=== PATIENT | female | born 1945 | race Caucasian/White ===

== ENCOUNTER 2018-04-10 16:26 | Inpatient (IN) | payer MEDICARE, OTHER ==
[2018-04-10] MEDS ORDERED: MORPHINE SULFATE 4 MG/ML SYRINGE IV STA (16:53)
[2018-04-10] MEDS ORDERED: SODIUM CHLORIDE 0.9% 1,000 ML IV STA (16:53)
[2018-04-10] MEDS ORDERED: ONDANSETRON 4 MG/2 ML VIAL IVP STA (16:53)
--- NOTE | 2018-04-10 17:37 | ED ---
General Adult HPI <Leroy Ferguson - Last Filed: 04/10/18 20:07> - General Source: patient, RN notes reviewed Mode of arrival: ambulatory Limitations: no limitations <Nick Morales - Last Filed: 04/10/18 20:19> - General Chief complaint: Abdominal Pain Stated complaint: Constipation Time Seen by Provider: 04/10/18 16:53 - History of Present Illness Initial comments: 72-year-old female with a past medical history of section presents to the emergency department for a chief complaint of generalized abdominal pain. Patient states she has had pain for months. She states that she has been unable to have a bowel movement for the past 2 months. Patient states she has also been nauseous and vomiting multiple times per day for the past week. She also states her abdomen feels distended. Patient has no other complaints at this time including shortness of breath, chest pain, headache, or visual changes. (Nick Morales) - Related Data Home Medications Medication Instructions Recorded Confirmed Alendronate Sodium [Fosamax] 70 mg PO Q7D 04/10/18 04/10/18 Oxybutynin Chloride [Ditropan XL] 10 mg PO DAILY 04/10/18 04/10/18 Allergies Allergy/AdvReac Type Severity Reaction Status Date / Time No Known Allergies Allergy Verified 04/10/18 16:55 Review of Systems ROS Other: All systems not noted in ROS Statement are negative. <Leroy Ferguson - Last Filed: 04/10/18 20:07> ROS Other: All systems not noted in ROS Statement are negative. <iNck Morales - Last Filed: 04/10/18 20:19> ROS Statement: Those systems with pertinent positive or pertinent negative responses have been documented in the HPI. Past Medical History Past Medical History: No Reported History History of Any Multi-Drug Resistant Organisms: None Reported Past Surgical History: Section Additional Past Surgical History / Comment(s): Cataracts Past Anesthesia/Blood Transfusion Reactions: No Reported Reaction Past Psychological History: No Psychological Hx Reported Smoking Status: Current every day smoker Past Alcohol Use History: Rare Past Drug Use History: None Reported - Past Family History Mother Family Medical History: No Reported History <Nick Morales - Last Filed: 04/10/18 20:19> General Exam Limitations: no limitations General appearance: alert, in no apparent distress Head exam: Present: atraumatic, normocephalic, normal inspection Eye exam: Present: normal appearance, PERRL, EOMI. Absent: scleral icterus, conjunctival injection, periorbital swelling ENT exam: Present: normal exam, mucous membranes moist Neck exam: Present: normal inspection, full ROM. Absent: tenderness, meningismus, lymphadenopathy Respiratory exam: Present: normal lung sounds bilaterally. Absent: respiratory distress, wheezes, rales, rhonchi, stridor Cardiovascular Exam: Present: regular rate, normal rhythm, normal heart sounds. Absent: systolic murmur, diastolic murmur, rubs, gallop, clicks GI/Abdominal exam: Present: soft, tenderness (Generalized tenderness noted of the abdomen), normal bowel sounds, hyperactive bowel sounds (Hyperactive tympanic bowel sounds noted), other (Abdomen does appear mildly distended). Absent: distended, guarding, rebound, rigid Rectal exam: Present: normal inspection. Absent: fecal impaction Neurological exam: Present: alert, oriented X3, CN II-XII intact Psychiatric exam: Present: normal affect, normal mood <Nick Morales P - Last Filed: 04/10/18 20:19> Vital Signs 04/10/18 04/10/18 16:42 20:09 Temperature 98.4 F Pulse Rate 116 H 110 H Respiratory 18 16 Rate Blood Pressure 103/73 127/96 O2 Sat by Pulse 95 96 Oximetry EKG Findings - EKG Comments: EKG Findings:: EKG shows a normal sinus rhythm, ventricular rate 99, QRS duration 82, QTC 441 <Nick Morales - Last Filed: 04/10/18 20:19> Medical Decision Making - Lab Data Result diagrams: 04/10/18 17:50 04/10/18 17:50 <Leroy Ferguson - Last Filed: 04/10/18 20:07> - Lab Data Result diagrams: 04/10/18 17:50 04/10/18 17:50 <Nick Morales - Last Filed: 04/10/18 20:19> - Medical Decision Making Patient reevaluated by myself, Dr. Ferguson. Abdomen mildly distended with mild diffuse tenderness. Patient updated on results and plan. CT report reviewed. Case was discussed in detail with Dr. Malagon who will admit for hospital call. He does recommend IV antibiotics and nothing by mouth after midnight. Patient does not meet sepsis criteria. (Leroy Ferguson) 72-year-old female with abdominal pain presents to the emergency department. Patient states she has not had a bowel movement for months. Patient states she has been nauseous and vomiting multiple times a day for the past week. On exam patient has a mildly distended abdomen with tympanic hyperactive bowel sounds. CT was ordered to rule out obstruction. CBC and CMP unremarkable. Sodium is 135 and patient was given normal saline. Glucose 135. Plasma lactic acid 2.2, patient does not meet sepsis criteria. Abdomen and pelvis CT shows high-grade mechanical bowel obstruction at the level of the lower descending colon with evidence of constricting mass. This is consistent with a adenicarcinoma of the colon. There is no pneumatosis of the cecum and markedly dilated cecum but no other signs of ischemia. Lactate 2.2. When speaking with Dr. Smith he thought this was likely secondary to cancer. Although patient's nausea initially resolved on reevaluation patient is vomiting. Dr. Ferguson spoke with Dr. Malagon who will admit the patient with IV antibiotics, NG tube, and UniSyn after midnight. (Nick Morales) - Lab Data Lab Results 04/10/18 04/10/18 04/10/18 Range/Units 17:50 17:50 17:50 WBC 9.5 (3.8-10.6) k/uL RBC 5.83 H (3.80-5.40) m/uL Hgb 15.9 (11.4-16.0) gm/dL Hct 51.0 H (34.0-46.0) % MCV 87.4 (80.0-100.0) fL MCH 27.3 (25.0-35.0) pg MCHC 31.2 (31.0-37.0) g/dL RDW 14.6 (11.5-15.5) % Plt Count 618 H (150-450) k/uL Neutrophils % 80 % Lymphocytes % 13 % Monocytes % 6 % Eosinophils % 1 % Basophils % 0 % Neutrophils # 7.5 (1.3-7.7) k/uL Lymphocytes # 1.2 (1.0-4.8) k/uL Monocytes # 0.6 (0-1.0) k/uL Eosinophils # 0.1 (0-0.7) k/uL Basophils # 0.0 (0-0.2) k/uL Sodium 135 L (137-145) mmol/L Potassium 4.7 (3.5-5.1) mmol/L Chloride 98 (98-107) mmol/L Carbon Dioxide 28 (22-30) mmol/L Anion Gap 9 mmol/L BUN 17 (7-17) mg/dL Creatinine 0.84 (0.52-1.04) mg/dL Est GFR (CKD-EPI)AfAm 81 (>60 ml/min/1.73 sqM) Est GFR (CKD-EPI)NonAf 71 (>60 ml/min/1.73 sqM) Glucose 135 H (74-99) mg/dL Plasma Lactic Acid Marko 2.2 H* (0.7-2.0) mmol/L Calcium 9.9 (8.4-10.2) mg/dL Total Bilirubin 0.5 (0.2-1.3) mg/dL AST 18 (14-36) U/L ALT 20 (9-52) U/L Alkaline Phosphatase 97 (38-126) U/L Total Protein 6.8 (6.3-8.2) g/dL Albumin 3.8 (3.5-5.0) g/dL Amylase 36 (30-110) U/L Lipase 52 (23-300) U/L Disposition <Leroy Ferguson - Last Filed: 04/10/18 20:07> Is patient prescribed a controlled substance at d/c from ED?: No Time of Disposition: 20:16 <Nick Morales - Last Filed: 04/10/18 20:19> Clinical Impression: Bowel obstruction, Mass of colon Disposition: ADMITTED IP TO THIS HOSP Condition: Fair Referrals: Lulú Gilletet MD [Primary Care Provider] - 1-2 days
[2018-04-10 18:12] LABS: Albumin 3.8 g/dL (3.5-5.0); Calcium 9.9 mg/dL (8.4-10.2); Potassium 4.7 mmol/L (3.5-5.1); Total Bilirubin 0.5 mg/dL (0.2-1.3); Total Protein 6.8 g/dL (6.3-8.2)
[2018-04-10 18:18] LABS: Basophils % (A) 0 %; Eosinophils # (A) 0.1 k/uL (0-0.7); Eosinophils % (A) 1 %; HGB 15.9 gm/dL (11.4-16.0); Lymphocytes # (A) 1.2 k/uL (1.0-4.8); Lymphocytes % (A) 13 %; MCH 27.3 pg (25.0-35.0); MCHC 31.2 g/dL (31.0-37.0); MCV 87.4 fL (80.0-100.0); Mean Platelet Volume 7.9; Monocytes # (A) 0.6 k/uL (0-1.0); Monocytes % (A) 6 %; Neutrophils # (A) 7.5 k/uL (1.3-7.7); Neutrophils % (A) 80 %; Platelet Count 618 k/uL (150-450); RBC 5.83 m/uL (3.80-5.40); RDW 14.6 % (11.5-15.5); WBC 9.5 k/uL (3.8-10.6)
--- NOTE | 2018-04-10 19:40 | CT ---
EXAMINATION TYPE: CT abdomen pelvis w con DATE OF EXAM: 04/10/2018 COMPARISON: None HISTORY: abdominal pain, constipation CT DLP: 650.3 mGycm Automated exposure control for dose reduction was used. TECHNIQUE: Helical acquisition of images was performed from the lung bases through the pelvis. CONTRAST: Performed without Oral Contrast and with IV Contrast, patient injected with 100 mL of Isovue 300. FINDINGS: There is some patchy subsegmental atelectasis at the lung bases. There is hiatal hernia. Gallbladder appears normal. Liver shows no focal defect. There is no pericardial effusion. There is no pleural ef fusion. There are small calcified splenic granulomata. There is no evidence of a pancreatic mass. There is no adrenal mass. Kidneys show satisfactory contrast opacification. There is no hydronephrosis. Ureters are not dilated . There is dilated cecum with air in the wall. Cecum measures 9.5 cm. There is not a significant thic kening of the cecal wall. I do not see hypodensity in the wall to suggest ischemia. There is multiple distended air and fluid-filled loops of small bowel. There is large bowel distention also with fluid . There appears to be Apple core type lesion in the lower descending colon which is transition point. This measures 7 x 3 cm. There is small amount of fluid in the right paracolic gutter. Appendix is not seen. I see no mesenter ic edema. Small bowel is dilated up to 3.2 cm. There is mild lumbar levoscoliosis. There is no compression fracture. There is spondylotic change and narrowing of the L4-5 disc space. I see no focal bone destruction. IMPRESSION: THERE IS HIGH-GRADE MECHANICAL BOWEL OBSTRUCTION AT THE LEVEL OF THE LOWER DESCENDING COLON WITH EVID ENCE OF CONSTRICTING MASS. THIS IS CONSISTENT WITH ADENOCARCINOMA OF THE COLON. THERE IS PNEUMATOSIS OF THE CECUM AND MARKEDLY DILATED CECUM BUT NO OTHER SIGN OF ISCHEMIA. Ischemia not entirely excluded . Patchy atelectasis at the lung bases. Healed granulomatous disease. Hiatal hernia.
[2018-04-10] MEDS ORDERED: NALOXONE 0.4 MG/ML 1 ML VIAL IV PRN (20:17)
[2018-04-10 21:07] LABS: Appearance,Urine Clear (Clear); Bilirubin,Urine Negative (Negative); Blood,Urine Negative (Negative); Color,Urine Yellow; Glucose,Urine (UA) Negative (Negative); Ketones,Urine Negative (Negative); Leukocyte Esterase,Urine Negative (Negative); Nitrite,Urine Negative (Negative); Protein,Urine Trace (Negative); Urobilinogen,Urine <2.0 mg/dL (<2.0)
[2018-04-10 21:10] LABS: Specific Gravity,Urine >1.050 (1.001-1.035)
--- NOTE | 2018-04-10 21:18 | XR ---
EXAMINATION TYPE: XR chest 1V portable DATE OF EXAM: 04/10/2018 COMPARISON: 05/25/2014 HISTORY: Chest pain cough TECHNIQUE: Single frontal view of the chest is obtained. FINDINGS: Heart is enlarged. There are calcified granulomata at the pulmonary van. There is coarsen ing of the lung markings. There is no gross heart failure. There is mild infiltrate at the right lung base. Bony thorax is intact. IMPRESSION: Old granulomatous disease. Mild infiltrate right lung base compared to old exam. Heart is increased in size compared to old exam .
[2018-04-10] MEDS: AMPICILLIN-SULBACTAM 3 GM in SODIUM CHLORIDE 0.9% 100 ML IVPB SCH (23:28)
[2018-04-10] MEDS: SODIUM CHLORIDE 0.9% 1,000 ML IV SCH (23:28)
[2018-04-10] MEDS ORDERED: IPRATROPIUM-ALBUTEROL 3 ML NEB INHALATION PRN (23:28)
[2018-04-11] MEDS: MORPHINE SULFATE 4 MG/ML SYRINGE IV PRN ×2 (01:55→09:34)
--- NOTE | 2018-04-11 02:28 | XR ---
EXAMINATION TYPE: XR chest 1V portable DATE OF EXAM: 04/11/2018 COMPARISON: Yesterday HISTORY: Check tube placement TECHNIQUE: Single frontal view of the chest is obtained. FINDINGS: There is a nasogastric tube with the tip probably in the gastric fundus. There is coarseni ng of the lung markings. Thoracic aorta is atheromatous. There is probably some infiltrate in the med ial right lung base. There are calcified granulomata at the pulmonary van. Bony thorax is intact. IMPRESSION: Right lower lobe infiltrate unchanged. NG tube in good position.
[2018-04-11] MEDS: AMPICILLIN-SULBACTAM 3 GM in SODIUM CHLORIDE 0.9% 100 ML IVPB SCH ×4 (03:29→16:42)
[2018-04-11] MEDS: IPRATROPIUM-ALBUTEROL 3 ML NEB INHALATION SCH ×3 (08:50→19:52)
[2018-04-11] MEDS: OXYBUTYNIN 10 MG TAB.ER.24 PO SCH (08:52)
[2018-04-11] MEDS: NICOTINE 14MG/24HR PATCH TRANSDERM SCH (08:57)
[2018-04-11] MEDS: PANTOPRAZOLE 40 MG/10 ML VIAL IVP SCH (08:57)
[2018-04-11] MEDS: HEPARIN SODIUM,PORCINE 5,000 UNIT/ML 1 ML VIAL SQ SCH ×2 (08:58→22:12)
[2018-04-11 10:13] LABS: Basophils % (A) 0 %; Eosinophils # (A) 0.3 k/uL (0-0.7); Eosinophils % (A) 2 %; HCT 42.5 % (34.0-46.0); HGB 13.2 gm/dL (11.4-16.0); Hypochromasia Slight; Lymphocytes # (A) 1.7 k/uL (1.0-4.8); Lymphocytes % (A) 14 %; MCH 27.9 pg (25.0-35.0); MCHC 30.9 g/dL (31.0-37.0); MCV 90.1 fL (80.0-100.0); Mean Platelet Volume 7.4; Monocytes # (A) 0.9 k/uL (0-1.0); Monocytes % (A) 8 %; Neutrophils # (A) 9.3 k/uL (1.3-7.7); Neutrophils % (A) 75 %; Platelet Count 615 k/uL (150-450); RBC 4.72 m/uL (3.80-5.40); RDW 14.7 % (11.5-15.5); WBC 12.4 k/uL (3.8-10.6)
--- NOTE | 2018-04-11 10:15 | CONS ---
CONSULTATION REASON FOR CONSULTATION: Advice regarding bowel obstruction and CA colon and other multiple medical issues requested by Dr. Malagon. HISTORY OF PRESENT ILLNESS: This is a 72-year-old woman with a past medical history of multiple medical problems including single polyp, history of nicotine dependence, being followed by Dr. Gillette in the outpatient setting, is complaining of constipation. The patient has several days of constipation. The patient also had abdomen distention, abdominal cramping in the lower part of the abdomen, especially in the right lower part. A CT scan in the emergency room showed high-grade mechanical bowel pressures the level of the lower descending colon with evidence of consider mass consistent with adenocarcinoma of the colon. The patient admitted for further evaluation and treatment. There is no history of fever, chills, or rigors. No history of headache, loss of consciousness, or seizures. PAST MEDICAL HISTORY: History of colonoscopy, history of , cataracts. MEDICATIONS: Prior to admission include oxybutynin, Ditropan XL 10 mg daily, Fosamax 70 mg q.7 days. ALLERGIES: None. FAMILY HISTORY: No history of heart disease or strokes in the family. SOCIAL HISTORY: History of smoking. Occasional alcohol intake. REVIEW OF SYSTEMS: ENT: Diminished hearing, diminished vision. CARDIOVASCULAR: No angina, palpitations. RESPIRATION: No cough or hemoptysis. GI: As mentioned earlier. : No dysuria. NERVOUS SYSTEM: No numbness or weakness. ALLERGY/IMMUNOLOGY: None. MUSCULOSKELETAL: As mentioned earlier. HEMATOLOGY: As mentioned earlier. DERMATOLOGY: As mentioned earlier. ENDOCRINE: No history of diabetes or hypothyroidism. CONSTITUTIONAL: As mentioned earlier. DERMATOLOGY: Negative. RHEUMATOLOGY: Negative. PSYCHIATRY: As mentioned earlier. PHYSICAL EXAMINATION: Alert and oriented x3. Pulse is 116, blood pressure 103/73, respiration 18, temperature 98.4, pulse ox 94% on room air. HEENT: Conjunctivae normal. Oral mucosa moist. Neck is no jugular venous distention. No lymph node enlargement. CARDIOVASCULAR SYSTEM: S1, S2, muffled. RESPIRATION: Breath sounds diminished at the bases. No rhonchi. No crackles. ABDOMEN: Soft. Mild diffuse distention. Nontender. No guarding. No rigidity. No mass palpable. LEGS: No edema, no swelling. NERVOUS SYSTEM: Higher functions as mentioned earlier. Moves all 4 limbs. No focal motor deficits. LYMPHATICS: No lymph node enlargement in the neck or axillae. SKIN: No ulcer, rash or bleeding. LABS: WBC is 9.4, hemoglobin is 15.9, platelets 600, sodium 135, plasma lactic acid is 2.2. ASSESSMENT: 1. Acute bowel obstruction, possibly secondary to malignancy at cecal level large bowel obstruction. 2. Possible carcinoma of the colon. 3. Hyponatremia. 4. Increased platelets. 5. Hard of hearing. 6. History of nicotine dependence. 7. Possible chronic obstructive pulmonary disease/bronchitis. RECOMMENDATION: In this 72-year-old woman who presented with multiple complex medical issues, will monitor the patient closely, continue with the current management. Recommend DVT prophylaxis, incentive spirometry, proton pump inhibitors. Otherwise, the patient from the medical point of view, cardiovascular is stable. Cleared for any surgery at this time. The EKG which is available in the chart, did not show any acute changes. Chest x- ray showed a few scattered rhonchi. MMODL / IJN: [id number] /
[2018-04-11] MEDS ORDERED: IV FLUID CONTINUATION 1,000 ML IV ONE (10:17)
[2018-04-11] MEDS: ONDANSETRON 4 MG/2 ML VIAL IVP PRN (10:33)
[2018-04-11 10:49] LABS: Calcium 8.5 mg/dL (8.4-10.2); Potassium 4.9 mmol/L (3.5-5.1)
[2018-04-11] MEDS ORDERED: MIDAZOLAM 2 MG/2 ML VIAL IVP ONE (11:13)
[2018-04-11] MEDS ORDERED: fentaNYL (PF) 50 MCG/ML 2 ML AMP IVP ONE (11:14)
[2018-04-11] MEDS ORDERED: NALOXONE 0.4 MG/ML 1 ML VIAL IV PRN (11:30)
--- NOTE | 2018-04-11 11:43 | P.GSHP ---
History of Present Illness H&P Date: 04/11/18 Chief Complaint: Abdominal pain constipation cramping 72-year-old female who is very hard of hearing looking older than stated age presented to the emergency room with a chief complaint of developing abdominal pain bloating cramping with constipation persistent over the last several days symptomatic patient had a CAT scan done in the emergency room on admission it did show evidence of a high-grade mechanical bowel obstruction at the level of the lower descending colon with evidence to consider a mass consistent with adenocarcinoma was admitted to the services of the attending with a nasogastric tube placed in the emergency room abdominal bloating with abdominal pain persist Patient states that she has had abdominal pain with constipation per the past several months. States that for the past 2 months has not been able to have a bowel movement feels nauseated and had been vomiting multiple times per day for the past week abdomen at home had been feeling bloated with poor oral intake Patient had a screening colonoscopy done March 2016 reviewing the report it showed descending colon mild diverticulosis external hemorrhoids transverse colon appeared normal - Review of Systems Comment: Essentially unremarkable except as mentioned in the present illness Past Medical History Past Medical History: No Reported History History of Any Multi-Drug Resistant Organisms: None Reported Past Surgical History: Section Additional Past Surgical History / Comment(s): Cataracts Past Anesthesia/Blood Transfusion Reactions: No Reported Reaction Past Psychological History: No Psychological Hx Reported Smoking Status: Current every day smoker Past Alcohol Use History: Rare Past Drug Use History: None Reported - Past Family History Mother Family Medical History: No Reported History Medications and Allergies Home Medications Medication Instructions Recorded Confirmed Type Alendronate Sodium [Fosamax] 70 mg PO Q7D 04/10/18 04/10/18 History Oxybutynin Chloride [Ditropan XL] 10 mg PO DAILY 04/10/18 04/10/18 History Allergies Allergy/AdvReac Type Severity Reaction Status Date / Time No Known Allergies Allergy Verified 04/11/18 10:19 Surgical - Exam Vital Signs Temp Pulse Resp BP Pulse Ox 98.4 F 116 H 18 103/73 95 04/10/18 16:42 04/10/18 16:42 04/10/18 16:42 04/10/18 16:42 04/10/18 16:42 GENERAL APPEARANCE: 72 year old alert, oriented, in no acute distress. States less abdominal cramping VITAL SIGNS: Reviewed HEENT: Head is normocephalic and atraumatic. Pupils are equal and reactive. The nares are patent. Oropharynx is clear without lesions. NECK: Supple without lymphadenopathy. Traches midline. HEART: S1, S2. Regular rate and rhythm. Denying chest pain LUNGS: No crackles or wheezes are heard. Adequate air movement bilaterally ABDOMEN: Soft, generalized tenderness across the abdominal wall, abdominal bloating no stool with hyperactive tympatnic bowel sounds noted No peritoneal signs. No palpable organomegaly or masses. EXTREMITIES: Normal skin color and turgor. No cyanosis, rash, ulceration, clubbing or edema. Radial pedal pulses are 2/4 bilaterally. NEUROLOGICAL: No focal deficits. Strength and sensation are grossly intact. Results - Labs 04/11/18 08:51 04/11/18 08:51 Abnormal Lab Results - Last 24 Hours (Table) 04/10/18 04/10/18 04/10/18 Range/Units 17:50 17:50 17:50 WBC (3.8-10.6) k/uL RBC 5.83 H (3.80-5.40) m/uL Hct 51.0 H (34.0-46.0) % MCHC (31.0-37.0) g/dL Plt Count 618 H (150-450) k/uL Neutrophils # (1.3-7.7) k/uL Sodium 135 L (137-145) mmol/L Carbon Dioxide (22-30) mmol/L Glucose 135 H (74-99) mg/dL Plasma Lactic Acid Marko 2.2 H* (0.7-2.0) mmol/L Ur Specific Raymond (1.001-1.035) Urine Protein (Negative) 04/10/18 04/11/18 04/11/18 Range/Units 20:54 08:51 08:51 WBC 12.4 H (3.8-10.6) k/uL RBC (3.80-5.40) m/uL Hct (34.0-46.0) % MCHC 30.9 L (31.0-37.0) g/dL Plt Count 615 H (150-450) k/uL Neutrophils # 9.3 H (1.3-7.7) k/uL Sodium (137-145) mmol/L Carbon Dioxide 31 H (22-30) mmol/L Glucose (74-99) mg/dL Plasma Lactic Acid Marko (0.7-2.0) mmol/L Ur Specific Raymond >1.050 H (1.001-1.035) Urine Protein Trace H (Negative) Diabetes panel 04/10/18 04/11/18 Range/Units 17:50 08:51 Sodium 135 L 138 (137-145) mmol/L Potassium 4.7 4.9 (3.5-5.1) mmol/L Chloride 98 102 (98-107) mmol/L Carbon Dioxide 28 31 H (22-30) mmol/L BUN 17 16 (7-17) mg/dL Creatinine 0.84 0.78 (0.52-1.04) mg/dL Glucose 135 H 92 (74-99) mg/dL Calcium 9.9 8.5 (8.4-10.2) mg/dL AST 18 (14-36) U/L ALT 20 (9-52) U/L Alkaline Phosphatase 97 (38-126) U/L Total Protein 6.8 (6.3-8.2) g/dL Albumin 3.8 (3.5-5.0) g/dL Thyroid panel 04/11/18 Range/Units 08:51 TSH 1.630 (0.465-4.680) mIU/L Calcium panel 04/10/18 04/11/18 Range/Units 17:50 08:51 Calcium 9.9 8.5 (8.4-10.2) mg/dL Albumin 3.8 (3.5-5.0) g/dL Pituitary panel 04/10/18 04/11/18 Range/Units 17:50 08:51 Sodium 135 L 138 (137-145) mmol/L Potassium 4.7 4.9 (3.5-5.1) mmol/L Chloride 98 102 (98-107) mmol/L Carbon Dioxide 28 31 H (22-30) mmol/L BUN 17 16 (7-17) mg/dL Creatinine 0.84 0.78 (0.52-1.04) mg/dL Glucose 135 H 92 (74-99) mg/dL Calcium 9.9 8.5 (8.4-10.2) mg/dL TSH 1.630 (0.465-4.680) mIU/L Adrenal panel 04/10/18 04/11/18 Range/Units 17:50 08:51 Sodium 135 L 138 (137-145) mmol/L Potassium 4.7 4.9 (3.5-5.1) mmol/L Chloride 98 102 (98-107) mmol/L Carbon Dioxide 28 31 H (22-30) mmol/L BUN 17 16 (7-17) mg/dL Creatinine 0.84 0.78 (0.52-1.04) mg/dL Glucose 135 H 92 (74-99) mg/dL Calcium 9.9 8.5 (8.4-10.2) mg/dL Total Bilirubin 0.5 (0.2-1.3) mg/dL AST 18 (14-36) U/L ALT 20 (9-52) U/L Alkaline Phosphatase 97 (38-126) U/L Total Protein 6.8 (6.3-8.2) g/dL Albumin 3.8 (3.5-5.0) g/dL Assessment and Plan Assessment: Impression Present on admission diffuse abdominal pain with bloating inability to have a bowel movement for the past 2 months suspect due to high-grade mechanical bowel obstruction at the level of the lower descending colon with 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 Present on admission intractable nausea vomiting poor oral intake suspect due to high-grade mechanical small bowel obstruction History of a screening colonoscopy 03/13/2016 report reviewed descending colon mild diverticulosis external hemorrhoids several polyps removed Present on admission poor oral intake nausea suspect constipation from the cecum Current every day smoker Hearing deficit Plan IV fluid for hydration Continue the nasogastric tube to intermittent suction Pain control DVT and GI prophylaxis IV antibiotic Unasyn as ordered Nothing by mouth for plan surgery today diverting colostomy sigmoid colectomy per Dr. vazquez Reinforce smoking cessation information been advised to stop smoking cigarettes The above impression and plan of care have been discussed and directed by signing physician. Beth Contreras nurse practitioner acting as scribe for signing physician.
[2018-04-11] MEDS ORDERED: ROPIVACAINE 400 MG, HYDROMORPHONE (PF) 3.75 MG in SODIUM CHLORIDE 0.9% 170 ML EPIDURAL PRN (12:00)
[2018-04-11] MEDS: SODIUM CHLORIDE 0.9% 1,000 ML IV SCH ×2 (13:02→16:21)
[2018-04-11] MEDS ORDERED: LACTATED RINGERS 1,000 ML IV ONE ×2 (13:23→13:59)
[2018-04-11] MEDS ORDERED: FUROSEMIDE 10 MG/ML 2 ML VIAL IV ONE (15:24)
[2018-04-11] MEDS ORDERED: LACTATED RINGERS 1,000 ML IV SCH (16:30)
[2018-04-11] MEDS: LACTATED RINGERS 1,000 ML IV SCH (17:15)
--- NOTE | 2018-04-11 17:43 | P.OP ---
Date of Procedure: 04/11/18 Preoperative Diagnosis: Obstructing left colon mass Postoperative Diagnosis: Obstructing left colon mass suspicious for adenocarcinoma Massively dilated right colon with serosal tears Procedure(s) Performed: Left colectomy with end colostomy Takedown of splenic flexure Splenectomy Partial omentectomy Anesthesia: JEANNIE Surgeon: Augustine Malagon Estimated Blood Loss (ml): 100 Pathology: other (Left colon, spleen, omentum) Condition: stable Disposition: PACU Description of Procedure: The patient's placed on the operative table in the supine position. She received general anesthesia. Her abdomen was prepped and draped usual sterile fashion. The abdomen was entered through midline incision. Upon entering the abdomen there were extensive adhesions along her previous midline scar. Approximately 20 minutes of operative time used to lyse adhesions. 1 mL were lysed the peritoneal cavity was entered the Bookwalter retractors placed a wound. The right colon was massively dilated. The colon appeared to be about 15 cm in diameter. There were serosal tears along the cecum and right colon. At this point it was decided to decompress the colon. The right colon was grasped with an Allis clamp and then using electrocautery a small enterotomy was made into the right colon. A large amount of air was aspirated. The enterotomy was sealed by dividing this area with the TA stapler. The serosal tears the right colon were then repaired using 3-0 silk suture. The colon was run to the level of the distal left colon. There was an obstructing tumor visualized. The left colon was mobilized by dividing the white line of Toldt's. The scope blunt flexure was mobilized as well. During mobilization spot flexure there was a small amount of bleeding from the inferior pole and spleen. It was decided to perform a splenectomy for control the bleeding. The splenic hilum was clamped between Marylin clamps and then divided with the Enseal device. 0 silk sutures used to divide the and ligate the splenic artery and vein. The splenic flexure was completely mobilized by dividing the adhesions of the splenic flexure. Next the sigmoid colon was transected with the linear cutter stapler. And then the left colon was transected with linear cutter stapler. The mesentery of the colon was divided using the Enseal device. The specimen sent to pathology. There was a suture on the proximal side of the specimen. The abdomen was irrigated there is no bleeding seen. The omentum was visualized. There was a portion of omentum appeared nonviable and this was dissected using the Enseal device and sent to pathology. The abdomen was irrigated. A suitable spot for the colostomy was found in the left upper quadrant. The colon was brought up through the colostomy site and then the fascia was closed with looped #1 PDS suture. The skin was closed elke. Once the skin was closed the colon was transected with left cautery and then the colostomy was matured using 3-0 Vicryl suture. Patient tolerated procedure well and was sent to recovery in stable condition.
[2018-04-11] MEDS ORDERED: PIPERACILLIN-TAZOBACTAM 3.375 GM in SODIUM CHLORIDE 0.9% 100 ML IVPB STA (18:47)
[2018-04-11 20:38] LABS: Albumin 2.2 g/dL (3.5-5.0); Calcium 7.6 mg/dL (8.4-10.2); Potassium 4.9 mmol/L (3.5-5.1); Total Bilirubin 0.5 mg/dL (0.2-1.3); Total Protein 4.3 g/dL (6.3-8.2)
[2018-04-11 20:52] LABS: HCT 36.7 % (34.0-46.0); HGB 11.4 gm/dL (11.4-16.0); Hypochromasia Slight; MCHC 31.1 g/dL (31.0-37.0); MCV 90.1 fL (80.0-100.0); Mean Platelet Volume 7.7; Platelet Count 592 k/uL (150-450); RBC 4.08 m/uL (3.80-5.40); RDW 14.5 % (11.5-15.5); WBC 12.5 k/uL (3.8-10.6)
[2018-04-11 21:28] LABS: Band Neutrophils % 30 %; Lymphocytes # (M) 1.38 k/uL (1.0-4.8); Metamyelocytes # (M) 0.25 k/uL (0); Metamyelocytes % 2 %; Myelocytes # (M) 0.13 k/uL (0); Myelocytes % 1 %; Neutrophils % (M) 50 %; Nucleated Red Blood Cells 0 /100 WBC (0-0); Total Cells Counted 200
[2018-04-11 21:29] LABS: Polychromasia Present; Toxic Granulation Present; Toxic Vacuolation Present
--- NOTE | 2018-04-11 22:11 | PN ---
PROGRESS NOTE DATE OF SERVICE: 04/11/2018 This 72-year-old woman is admitted with bowel obstruction underwent exploratory laparotomy and surgery by Dr. Malagon. The patient underwent left colectomy with end- colostomy and take down of splenic flexure, splenectomy and partial omentectomy for obstructing left colonic mass which is suspicious for adenocarcinoma. The patient was tachycardic during the procedure. The patient is slightly drowsy after procedure. Patient is also slightly dehydrated. Patient being closely monitored. Multiple fluid boluses given. White count is 12.4. Repeat. The troponins are negative. EKG shows sinus tachycardia. PAST MEDICAL HISTORY: Reviewed. REVIEW OF SYSTEM: Could not be taken. The patient is slightly drowsy. CURRENT MEDICATIONS: Reviewed and include: 1. DuoNeb q.i.d. and p.r.n. 2. Heparin 5000 subcu b.i.d. 3. Lactated Ringer's. 4. Narcan. 5. Habitrol 14. 6. Ditropan XL. PHYSICAL EXAM: Pulse is 124, blood pressure 110/70, respiratory rate 16, temperature 99.4, pulse ox 97% on room air. HEENT: Conjunctivae normal. Oral mucosa dry. NECK is no jugular venous distention. No carotid bruit or lymph node enlargement. CARDIOVASCULAR: S1, S2. RESPIRATIONS: Breath sounds diminished in the bases. A few rhonchi. No crackles. ABDOMEN: Soft. Status post surgery. LEGS: No edema, no swelling. NERVOUS SYSTEM: Higher functions as mentioned earlier. Moves all four extremities. Lymphatics: No lymph nodes palpable in the neck, axillae or groin. SKIN: No ulcer, rash or bleeding. LAB STUDIES: WBC 12.4, platelets 615. Other labs are noted. ASSESSMENT: 1. Possible acute bowel obstruction with obstructing mass left chronic mass, status post left colectomy with end-colostomy, takedown splenic flexure, and splenectomy and partial omentectomy. 2. Tachycardia, rule out sepsis. 3. Increased WBC. 4. Increased platelets. 5. Hyponatremia. 6. Hard of hearing. 7. History of nicotine dependence. 8. Chronic obstructive pulmonary disease. 9. Bronchitis. RECOMMENDATIONS AND DISCUSSION: Recommend to continue current medications, management and symptomatic treatment. Otherwise, I recommend broad-spectrum IV antibiotics. Zosyn. Obtain cultures. Otherwise, continue the rest of medications including DVT prophylaxis and proton pump inhibitors. Closely follow with Dr. Malagon. Further recommendations to follow. See orders for details. MMODL / IJN: [id number] /
[2018-04-12] MEDS ORDERED: SODIUM CHLORIDE 0.9% 1,000 ML IV ONE ×2 (00:02→09:00)
[2018-04-12] MEDS: PIPERACILLIN-TAZOBACTAM 3.375 GM in SODIUM CHLORIDE 0.9% 100 ML IVPB SCH ×3 (02:27→22:54)
[2018-04-12] MEDS: LACTATED RINGERS 1,000 ML IV SCH ×3 (02:27→17:00)
[2018-04-12 06:08] LABS: Basophils % (A) 0 %; Eosinophils % (A) 0 %; HCT 34.6 % (34.0-46.0); HGB 10.5 gm/dL (11.4-16.0); Hypochromasia Slight; Lymphocytes # (A) 1.1 k/uL (1.0-4.8); Lymphocytes % (A) 8 %; MCH 27.3 pg (25.0-35.0); MCHC 30.4 g/dL (31.0-37.0); MCV 89.7 fL (80.0-100.0); Mean Platelet Volume 6.9; Monocytes # (A) 0.9 k/uL (0-1.0); Monocytes % (A) 7 %; Neutrophils # (A) 11.2 k/uL (1.3-7.7); Neutrophils % (A) 84 %; Platelet Count 553 k/uL (150-450); RBC 3.86 m/uL (3.80-5.40); RDW 14.6 % (11.5-15.5); WBC 13.3 k/uL (3.8-10.6)
[2018-04-12 06:24] LABS: Calcium 7.5 mg/dL (8.4-10.2)
[2018-04-12] MEDS: IPRATROPIUM-ALBUTEROL 3 ML NEB INHALATION SCH ×3 (06:56→20:08)
--- NOTE | 2018-04-12 07:06 | P.PN ---
Progress Note - Text Progress Note Date: 04/12/18 Patient is postop day #1 from Left colectomy with end colostomy, takedown of splenic flexure, Splenectomy, epidural catheter day #2. Patient is doing well VAS difficult to ascertain the between the 2-3 out of 10 in severity. Patient states she has some soreness in her abdomen but well controlled with the epidural. Patient states that she's been and waiting to the bathroom with assistance. Epidural solution consisted ropivacaine and Dilaudid running at a rate of 5 ML's an hour. No motor sensory deficits appreciated. Plan is to continue with current settings.
[2018-04-12] MEDS: OXYBUTYNIN 10 MG TAB.ER.24 PO SCH (10:40)
[2018-04-12] MEDS: NICOTINE 14MG/24HR PATCH TRANSDERM SCH (10:40)
[2018-04-12] MEDS: PANTOPRAZOLE 40 MG/10 ML VIAL IVP SCH (10:41)
[2018-04-12] MEDS: HEPARIN SODIUM,PORCINE 5,000 UNIT/ML 1 ML VIAL SQ SCH ×2 (10:42→22:54)
[2018-04-12] MEDS ORDERED: LACTATED RINGERS 1,000 ML IV ONE (12:30)
--- NOTE | 2018-04-12 12:32 | P.PN ---
Subjective Progress Note Date: 04/12/18 72-year-old female seen in the postop surgical visit. Currently has a nasal gastric tube to intermittent suction brownish secretions in the canister ostomy left lower quadrant moderate amount of liquid brown stool noted surgical dressing dry old bloody drainage noted patient is asking for " thirsty needs something to drink" white count 13.3 potassium [address] for pain control temp 99.2 April 11 left colectomy with end colostomy , takedown splenic flexure, splenectomy, partial omentectomy for obstructing left colon mass suspicious for adenocarcinoma, massively dilated right colon with serosal tears Objective - Vital Signs Vital signs: Vital Signs Temp 99.2 F 04/12/18 08:58 Pulse 113 H 04/12/18 08:58 Resp 14 04/12/18 11:42 BP 107/70 04/12/18 08:58 Pulse Ox 94 L 04/12/18 08:58 Intake & Output 04/11/18 04/12/18 04/12/18 18:59 06:59 18:59 Intake Total 2350 2612.5 Output Total 465 750 Balance 1885 1862.5 Weight 61.235 kg Intake: IV 2350 Intake, IV Titration 2612.5 Amount Lactated Ringers 1,000 ml 1562.5 @ 125 mls/hr IV .Q8H [facility] Rx#:[id number] Piperacillin-Tazobactam 3 100 .375 gm In Sodium Chloride 0.9% 100 ml @ 25 mls/hr IVPB Q8H [facility] Rx#: [id number] Sodium Chloride 0.9% 1, 950 000 ml @ 999 mls/hr IV . Q1H1M [facility] Rx#:[id number] Output: Urine 315 550 Stool 200 Estimated Blood Loss 150 Other: Voiding Method Indwelling Catheter Indwelling Catheter Indwelling Catheter - Exam Physical exam 72-year-old female sitting up in bed asking for water states thirsty Lungs adequate air movement bilaterally Heart S1-S2 audible regular Abdomen nasogastric tube to intermittent suction brownish secretions in the canister surgical tenderness appropriate not distended. Hypoactive bowel tones indwelling Noble catheter in place ostomy left lower quadrant moderate amount of liquid brown stool surgical dressing site dry Extremities Venodyne's on bilateral lower extremities no edema - Labs CBC & Chem 7: 04/12/18 05:49 04/12/18 05:49 Labs: Abnormal Lab Results - Last 24 Hours (Table) 04/11/18 04/11/18 04/12/18 Range/Units 20:08 20:09 05:49 WBC 12.5 H 13.3 H (3.8-10.6) k/uL Hgb 10.5 L (11.4-16.0) gm/dL MCHC 30.4 L (31.0-37.0) g/dL Plt Count 592 H 553 H (150-450) k/uL Neutrophils # 11.2 H (1.3-7.7) k/uL Neutrophils # (Manual) 10.00 H (1.3-7.7) k/uL Metamyelocytes # (Man) 0.25 H (0) k/uL Myelocytes # (Manual) 0.13 H (0) k/uL BUN 18 H (7-17) mg/dL Glucose 107 H (74-99) mg/dL Calcium 7.6 L (8.4-10.2) mg/dL Total Protein 4.3 L (6.3-8.2) g/dL Albumin 2.2 L (3.5-5.0) g/dL 04/12/18 Range/Units 05:49 WBC (3.8-10.6) k/uL Hgb (11.4-16.0) gm/dL MCHC (31.0-37.0) g/dL Plt Count (150-450) k/uL Neutrophils # (1.3-7.7) k/uL Neutrophils # (Manual) (1.3-7.7) k/uL Metamyelocytes # (Man) (0) k/uL Myelocytes # (Manual) (0) k/uL BUN 21 H (7-17) mg/dL Glucose (74-99) mg/dL Calcium 7.5 L (8.4-10.2) mg/dL Total Protein (6.3-8.2) g/dL Albumin (3.5-5.0) g/dL Microbiology - Last 24 Hours (Table) 04/10/18 20:54 Urine Culture - Final Urine,Voided 04/10/18 21:28 Blood Culture - Preliminary Blood No Growth after 24 hours Assessment and Plan Assessment: Impression Present on admission diffuse abdominal pain with bloating inability to have a bowel movement for the past 2 months suspect due to high-grade mechanical bowel obstruction at the level of the lower descending colon with 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 Present on admission intractable nausea vomiting poor oral intake suspect due to high-grade mechanical small bowel obstruction History of a screening colonoscopy 03/13/2016 report reviewed descending colon mild diverticulosis external hemorrhoids several polyps removed Present on admission poor oral intake nausea suspect constipation from the cecum Current every day smoker Hearing deficit Status post April 11 left colectomy with end colostomy and takedown of splenic flexure, splenectomy partial omentectomy for massively dilated right colon with serosal tears, obstructing left colon mass suspicious for adrenocarcinoma, Plan Give 1 L fluid bolus LR now IV fluid for hydration Continue the nasogastric tube to intermittent suction Pain control DVT and GI prophylaxis IV antibiotic Zosyn as ordered Continue postop surgical care Reinforce smoking cessation information been advised to stop smoking cigarettes The above impression and plan of care have been discussed and directed by signing physician. Beth Contreras nurse practitioner acting as scribe for signing physician.
--- NOTE | 2018-04-12 14:19 | P.CRDCN ---
History of Present Illness History of present illness: This is a pleasant 72-year-old female past medical history significant for chronic nicotine dependence. She denies history of coronary artery disease, hypertension, dyslipidemia or diabetes mellitus. She presented to the hospital 04/10 with symptoms of abdominal pain, nausea and vomiting. She was found to have a high grade mechanical bowel obstruction at the level of the lower descending colon with evidence of constricting mass, consistent with adenocarcinoma of the colon. She underwent left colectomy with end colostomy, takedown of splenic flexure, splenectomy, partial omentectomy for obstructing left colon mass suspicious for adenocarcinoma with massively dilated right colon with serosal tearscolectomy with Dr. Hernandes yesterday. We have been asked to see her in consultation for post-operative tachycardia. EKG on admission indicates sinus mechanism heart rate 99. Repeat performed last night reveals sinus tachycardia with no acute arrhythmia or ST T wave abnormalities. Heart rates documented yesterday through the afternoon or in the 120 to 130 range. Laboratory data reviewed, WBC 13.3, hemoglobin 10.5 down from 15.9 on admission, platelets 553, sodium 138, potassium 5, creatinine 0.82, magnesium 2.3, cardiac enzymes negative 3, TSH 1.63 and lactic acid on admission 2.2 down to 1.2. She is seen and examined resting comfortably in bed in no acute distress. She has an NG tube in place as well as epidural for pain control. She denies symptoms of chest pain, shortness of breath, dizziness or palpitations. She continues to complain of abdominal discomfort and is requesting to be removed from her nose and she begin and food. At the time of my exam: CONSTITUTIONAL: Denies fever. Denies chills. EYES: Denies blurred vision. Denies vision changes. Denies eye pain. EARS, NOSE, MOUTH & THROAT: Denies headache. Denies sore throat. Denies ear pain. CARDIOVASCULAR: Denies chest pain. Denies shortness of breath. Denies orthopnea. Denies PND. Denies palpitations. RESPIRATORY: Denies cough. GASTROINTESTINAL: Complains of abdominal pain. Denies diarrhea. Denies constipation. Denies nausea. Denies vomiting. MUSCULOSKELETAL: Denies myalgias. INTEGUMENTARY: Denies pruitis. Denies rash. NEUROLOGIC: Denies numbness. Denies tingling. Denies weakness. PSYCHIATRIC: Denies anxiety. Denies depression. ENDOCRINE: Denies fatigue. Denies weight change. Denies polydipsia. Denies polyurina. GENITOURINARY: Denies burning, hematuria or urgency with micturation. HEMATOLOGIC: Denies history of anemia. Denies bleeding. Blood pressure 107/70 heart rate 113 afebrile maintaining oxygen saturation on nasal cannula GENERAL: This is a 72-year-old female in no apparent distress at the time of my examination. Hard of hearing. HEENT: Head is atraumatic, normocephalic. Pupils are equal, round. Sclerae anicteric. Conjunctivae are clear. Mucous membranes of the mouth are moist. Neck is supple. There is no jugular venous distention. No carotid bruit is heard. NG tube in place. LUNGS: Clear to auscultation no wheezes, rales or rhonchi. No chest wall tenderness is noted on palpation or with deep breathing. HEART: Regular rate and rhythm without murmurs, rubs or gallops. S1 and S2 heard. ABDOMEN: Soft and round with colostomy to left lower quadrant. EXTREMITIES: No evidence of peripheral edema and no calf tenderness noted. VASCULAR: Radial and dorsalis pedis pulses palpated, no evidence of clubbing. NEUROLOGIC: Patient is awake, alert and oriented x3. ASSESSMENT Abdominal pain with high grade bowel obstruction s/p colectomy with colostomy creation and splenectomy Post-operative sinus tachycardia Chronic nicotine dependence PLAN Tachycardia is sinus with no evidence of arrhythmia. Most likely related to recent surgery and likely septic appearance. Electrolytes and thyroid function have been checked and are normal. Obtain 2D echocardiogram and doppler study to assess cardiac structure and function. Thank you kindly for this consultation. Nurse Practitioner note has been reviewed, I agree with a documented findings and plan of care. Patient was seen and examined. Past Medical History Past Medical History: No Reported History History of Any Multi-Drug Resistant Organisms: None Reported Past Surgical History: Section Additional Past Surgical History / Comment(s): Cataracts Past Anesthesia/Blood Transfusion Reactions: No Reported Reaction Past Psychological History: No Psychological Hx Reported Smoking Status: Current every day smoker Past Alcohol Use History: Rare Past Drug Use History: None Reported - Past Family History Mother Family Medical History: No Reported History Medications and Allergies Home Medications Medication Instructions Recorded Confirmed Type Alendronate Sodium [Fosamax] 70 mg PO Q7D 12/09/18 12/09/18 History Oxybutynin Chloride [Ditropan XL] 10 mg PO DAILY 04/10/18 04/10/18 History Allergies Allergy/AdvReac Type Severity Reaction Status Date / Time No Known Allergies Allergy Verified 04/11/18 10:19 Physical Exam Vitals: Vital Signs Temp Pulse Pulse Resp BP BP Pulse Ox 04/12/18 11:42 14 04/12/18 08:58 99.2 F 113 H 14 107/70 94 L 04/12/18 07:06 88 04/12/18 06:56 88 04/12/18 03:38 103/65 04/12/18 02:01 100/60 04/11/18 23:45 98.5 F 111 H 18 96/63 94 L 04/11/18 20:02 88 14 04/11/18 19:52 84 14 04/11/18 19:51 124 H 04/11/18 19:19 99.4 F 124 H 16 110/71 96 04/11/18 17:45 127 H 100/66 94 L 04/11/18 17:30 129 H 118/76 96 04/11/18 17:15 128 H 111/72 98 04/11/18 17:00 131 H 116/74 98 04/11/18 16:45 131 H 104/59 96 04/11/18 16:30 98.1 F 132 H 108/73 96 04/11/18 16:00 124 H 18 104/63 99 04/11/18 15:45 127 H 18 132/55 96 04/11/18 15:30 124 H 18 161/74 96 04/11/18 15:15 124 H 18 170/74 100 04/11/18 15:00 116 H 18 166/77 100 04/11/18 14:45 128 H 18 170/80 100 04/11/18 14:40 97.6 F 126 H 18 173/86 99 Intake and Output 04/11/18 04/12/18 04/12/18 22:59 06:59 14:59 Intake Total 437.5 2175 Output Total 475 550 Balance -37.5 1625 Intake: Intake, IV Titration 437.5 2175 Amount Lactated Ringers 1,000 ml 437.5 1125 @ 125 mls/hr IV .Q8H [facility] Rx#:[id number] Piperacillin-Tazobactam 3 100 .375 gm In Sodium Chloride 0.9% 100 ml @ 25 mls/hr IVPB Q8H [facility] Rx#: [id number] Sodium Chloride 0.9% 1, 950 000 ml @ 999 mls/hr IV . Q1H1M [facility] Rx#:[id number] Output: Urine 275 550 Stool 200 Other: Voiding Method Indwelling Catheter Indwelling Catheter Weight 61.235 kg Results 04/12/18 05:49 04/12/18 05:49 Cardiac Enzymes 04/11/18 04/11/18 04/11/18 Range/Units 17:35 20:08 23:59 AST 15 (14-36) U/L Troponin I <0.012 <0.012 (0.000-0.034) ng/mL 04/12/18 Range/Units 05:49 AST (14-36) U/L Troponin I <0.012 (0.000-0.034) ng/mL CBC 04/11/18 04/12/18 Range/Units 20:09 05:49 WBC 12.5 H 13.3 H (3.8-10.6) k/uL RBC 4.08 3.86 (3.80-5.40) m/uL Hgb 11.4 10.5 L (11.4-16.0) gm/dL Hct 36.7 34.6 (34.0-46.0) % Plt Count 592 H 553 H (150-450) k/uL Comprehensive Metabolic Panel 04/11/18 04/12/18 Range/Units 20:08 05:49 Sodium 137 138 (137-145) mmol/L Potassium 4.9 5.0 (3.5-5.1) mmol/L Chloride 105 107 (98-107) mmol/L Carbon Dioxide 28 28 (22-30) mmol/L BUN 18 H 21 H (7-17) mg/dL Creatinine 0.81 0.82 (0.52-1.04) mg/dL Glucose 107 H 98 (74-99) mg/dL Calcium 7.6 L 7.5 L (8.4-10.2) mg/dL AST 15 (14-36) U/L ALT 24 (9-52) U/L Alkaline Phosphatase 51 (38-126) U/L Total Protein 4.3 L (6.3-8.2) g/dL Albumin 2.2 L (3.5-5.0) g/dL Current Medications Generic Name Dose Route Start Last Admin Trade Name Freq PRN Reason Stop Dose Admin Albuterol/Ipratropium 3 ml 04/10/18 23:28 Duoneb 0.5 Mg-3 Mg/3 Ml Soln INHALATION RT-TID PRN Shortness Of Breath Or Wheezing Albuterol/Ipratropium 3 ml 04/11/18 08:00 04/12/18 10:49 Duoneb 0.5 Mg-3 Mg/3 Ml Soln INHALATION 3 ml RT-TID [facility] Administration Heparin Sodium (Porcine) 5,000 unit 04/11/18 09:00 04/12/18 10:42 Heparin SQ 5,000 unit Q12HR [facility] Administration Ropivacaine 400 mg/ 250.375 mls @ 0 mls/hr 04/11/18 12:00 04/11/18 15:03 Hydromorphone HCl 3.75 mg/ EPIDURAL 0 mls Sodium Chloride .Q0M PRN Administration Pain Control Protocol Per Protocol Lactated Ringer's 1,000 mls @ 125 mls/hr 04/11/18 17:00 04/12/18 10:36 Lactated Ringers IV 125 mls/hr .Q8H [facility] Administration Piperacillin Sod/Tazobactam 100 mls @ 25 mls/hr 04/12/18 03:00 04/12/18 11:55 Sod 3.375 gm/ Sodium Chloride IVPB 25 mls/hr Q8H [facility] Administration Morphine Sulfate 4 mg 04/10/18 20:17 04/11/18 09:34 Morphine Sulfate (Inj) IV 4 mg Q4HR PRN Administration Severe Pain Naloxone HCl 0.2 mg 04/11/18 11:30 Narcan IV Q2M PRN Opioid Reversal Nicotine 1 patch 04/11/18 09:00 04/12/18 10:40 Habitrol 14mg/24hr Patch TRANSDERM 1 patch DAILY [facility] Administration Ondansetron HCl 4 mg 04/10/18 20:17 04/11/18 10:33 Zofran IVP 4 mg Q8HR PRN Administration Nausea And Vomiting Oxybutynin Chloride 10 mg 04/11/18 09:00 04/12/18 10:40 Ditropan Xl PO 10 mg DAILY [facility] Administration Pantoprazole Sodium 40 mg 04/11/18 09:00 04/12/18 10:41 Protonix IVP 40 mg DAILY [facility] Administration Intake and Output 04/11/18 04/12/18 04/12/18 22:59 06:59 14:59 Intake Total 437.5 2175 Output Total 475 550 Balance -37.5 1625 Intake: Intake, IV Titration 437.5 2175 Amount Lactated Ringers 1,000 ml 437.5 1125 @ 125 mls/hr IV .Q8H [facility] Rx#:[id number] Piperacillin-Tazobactam 3 100 .375 gm In Sodium Chloride 0.9% 100 ml @ 25 mls/hr IVPB Q8H [facility] Rx#: [id number] Sodium Chloride 0.9% 1, 950 000 ml @ 999 mls/hr IV . Q1H1M [facility] Rx#:[id number] Output: Urine 275 550 Stool 200 Other: Voiding Method Indwelling Catheter Indwelling Catheter Weight 61.235 kg Patient Weight 04/13/18 06:59 Weight 61.235 kg 04/12/18 05:49 04/12/18 05:49
[2018-04-12] MEDS ORDERED: VANCOMYCIN IV PER PHARMACY 1 EACH MISC MISCELLANE PRN (16:55)
[2018-04-12] MEDS: VANCOMYCIN 1,250 MG in SODIUM CHLORIDE 0.9% 250 ML IVPB SCH (19:37)
--- NOTE | 2018-04-12 23:46 | CONS ---
CONSULTATION DATE OF SERVICE: 04/12/2018. REASON FOR CONSULTATION: Fever and leukocytosis and bacteremia. HISTORY OF PRESENT ILLNESS: The patient is a 72 -year-old female presenting to the ER at [facility] on 04/10/2018 with chief complaints of generalized abdominal pain. Apparently symptoms of abdominal pain has been getting worse over the last 2 months with significant worsening on the last week. The patient's abdominal pain has been mostly generalized all across the abdominal area. Initially intensity has been almost 10/10, and she presented to the hospital with associated nausea and vomiting and abdominal distention, but no diarrhea or any BMs with these symptoms. The patient was evaluated by the ER physician. On arrival to the ER, the patient did have a CT of the abdomen and pelvis completed which shows high-grade mechanical bowel obstruction at the level of the lower descending colon with evidence of constricting this is consistent with adenocarcinoma. The patient subsequently was taken to the OR by Dr. Malagon the next day and the patient did have a left colectomy with end-colostomy and takedown of the splenic fracture, splenectomy and partial omentectomy. Patient seems to have problem with low-grade fever started today at 100-99.7. She has been tachycardic and white count has been elevated. Admission white count was normal at 9.5, slowly increasing up to 13.3 today. She also has a blood culture drawn on admission, which showed gram-positive cocci that prompted this infectious disease consultation. REVIEW OF SYSTEMS: Positive for weakness and some chills. Eyes: No complaint. ENT no complaint. Respiratory: No complaint. Cardiovascular no complaint. Genitourinary no complaint. Gastrointestinal: As mentioned earlier. Respiratory as per HPI. Musculoskeletal no complaint. Integumentary: No complaint. Psychological: No complaint. Endocrine no complaint. Neurological: No complaint. PAST MEDICAL HISTORY: No major illnesses. PAST SURGICAL HISTORY: and cataract surgery. SOCIAL HISTORY: The patient is currently an everyday smoker, 50 pack year smoking. Rarely drinks. No drug use. FAMILY HISTORY: No pertinent findings noticed. ALLERGIES: No known drug allergies. MEDICATIONS: The patient is currently on DuoNeb, heparin, lactated Ringer's, morphine sulfate, Narcan, nicotine patch, Zofran, Toprol-XL, Protonix, Zosyn 3.375 q8 hours. EXAMINATION: Blood pressure 94/60 with a pulse of 70, temperature of 100. She is 91% on 3 L nasal cannula. General description is an elderly female lying in bed in no distress. No tachypnea or accessory muscles of respiration use. HEENT examination is slight pallor. No scleral icterus. Oral mucosa membranes are dry. No pharyngeal erythema or thrush. Neck: Trachea central. No thyromegaly. Lungs unlabored breathing with decreased breath sounds in the bases. No wheeze. Heart S1, S2. Regular rate. ABDOMEN: Soft mildly distended. Incision is currently intact. No significant drainage. Did however, . EXTREMITIES: No edema feet. Skin examination: No rash or mass palpable. Neurological: Patient is awake, alert, oriented x2. Mood and affect normal. LABS: Hemoglobin is 10.5, white count 13.3 with a BUN of 21, creatinine 0.82. Blood culture with gram-positive cocci. DIAGNOSTIC IMPRESSION/PLAN: 1. Patient with low-grade fever and elevated white count, now with evidence of a bacteremia with gram-positive cocci in this patient admitted to the hospital with abdominal pain that has been chronic to her. The patient was noticed to have abnormal CT of abdomen and pelvis with concern for obstructing left colon status post left colectomy with end-colostomy, splenectomy and partial omentectomy with concern for possible serosal involvement and possible serosal tear with question of possible secondary peritonitis to be likely responsible for this low-grade fever and elevated white count and with the enteric gram-negative both aerobes and anaerobes now Zosyn with evidence of a gram-positive bacteremia could be Enterococcus or flora. 2. Patient who is status post splenectomy, she will need a post splenectomy vaccination of her surgery in the form of Pneumovax Haemophilus influenzae and meningococcal vaccines. PLAN: 1. We will repeat blood cultures times one to document clearance of bacteremia. 2. We will add vancomycin pharmacy to dose target of 15 while watching kidney function and Vanco trough closely. 3. Zosyn 3.375 q.8 hours. 4. Meningococcus pneumococcus and Haemophilus influenza vaccination, day 14 of splenectomy. 5. We will follow up on clinical condition and further adjust medication if needed. Thank you for this consultation. We will follow this patient along with you. MMODL / IJN: [id number] /
[2018-04-13] MEDS: LACTATED RINGERS 1,000 ML IV SCH ×4 (02:09→23:04)
[2018-04-13] MEDS: PIPERACILLIN-TAZOBACTAM 3.375 GM in SODIUM CHLORIDE 0.9% 100 ML IVPB SCH ×3 (04:10→21:59)
[2018-04-13] MEDS: IPRATROPIUM-ALBUTEROL 3 ML NEB INHALATION SCH ×3 (07:20→21:03)
[2018-04-13 10:03] LABS: Anion Gap 5 mmol/L; Blood Urea Nitrogen 19 mg/dL (7-17); Calcium 7.7 mg/dL (8.4-10.2); Carbon Dioxide 26 mmol/L (22-30); Chloride 107 mmol/L (98-107); Glucose 67 mg/dL (74-99); Sodium 138 mmol/L (137-145)
[2018-04-13] MEDS: VANCOMYCIN 1,250 MG in SODIUM CHLORIDE 0.9% 250 ML IVPB SCH (10:26)
[2018-04-13 10:28] LABS: Basophils % (A) 0 %; Eosinophils % (A) 0 %; HCT 30.7 % (34.0-46.0); HGB 9.4 gm/dL (11.4-16.0); Hypochromasia Slight; Lymphocytes # (A) 1.1 k/uL (1.0-4.8); Lymphocytes % (A) 8 %; MCH 27.5 pg (25.0-35.0); MCHC 30.6 g/dL (31.0-37.0); MCV 90.1 fL (80.0-100.0); Mean Platelet Volume 8.3; Monocytes # (A) 1.1 k/uL (0-1.0); Monocytes % (A) 8 %; Neutrophils # (A) 11.9 k/uL (1.3-7.7); Neutrophils % (A) 83 %; Platelet Count 496 k/uL (150-450); RDW 14.8 % (11.5-15.5); WBC 14.3 k/uL (3.8-10.6)
[2018-04-13] MEDS: PANTOPRAZOLE 40 MG/10 ML VIAL IVP SCH (10:28)
[2018-04-13] MEDS: NICOTINE 14MG/24HR PATCH TRANSDERM SCH (10:32)
[2018-04-13] MEDS: HEPARIN SODIUM,PORCINE 5,000 UNIT/ML 1 ML VIAL SQ SCH (10:32)
[2018-04-13] MEDS: OXYBUTYNIN 10 MG TAB.ER.24 PO SCH (11:02)
[2018-04-13] MEDS ORDERED: METOPROLOL TARTRATE 5 MG/5 ML VIAL IVP STA (11:49)
--- NOTE | 2018-04-13 11:50 | P.PN ---
Subjective Progress Note Date: 04/13/18 72-year-old being seen for postop surgical visit currently heart rate up 120s to 140s with a blood pressure of 90/60 patient's denying any dizziness lightheadedness chest pain or shortness of breath currently sitting up in bed very hard HEARING. white counts 14.3 August 2 0.3 drawn yesterday electrolyte within normal limits nasal gastric tube to intermittent suction 200 out since 7 AM indwelling Noble catheter in place April 11 left colectomy with end colostomy , takedown splenic flexure, splenectomy, partial omentectomy for obstructing left colon mass suspicious for adenocarcinoma, massively dilated right colon with serosal tears Objective - Vital Signs Vital signs: Vital Signs Temp 98.6 F 04/13/18 09:06 Pulse 101 H 04/13/18 11:30 Resp 20 04/13/18 09:06 BP 97/60 04/13/18 11:30 Pulse Ox 93 L 04/13/18 09:06 Intake & Output 04/12/18 04/13/18 04/13/18 18:59 06:59 18:59 Intake Total 1974 2350 Output Total 200 200 Balance 1974 2150 -200 Weight 61.235 kg Intake: Intake, IV Titration 1974 2350 Amount Lactated Ringers 1,000 ml 875 2000 @ 125 mls/hr IV .Q8H [facility] Rx#:[id number] Piperacillin-Tazobactam 3 100 100 .375 gm In Sodium Chloride 0.9% 100 ml @ 25 mls/hr IVPB Q8H [facility] Rx#: [id number] Sodium Chloride 0.9% 1, 1000 000 ml @ 999 mls/hr IV . Q1H1M [facility] Rx#:[id number] Vancomycin 1,250 mg In 250 Sodium Chloride 0.9% 250 ml @ 125 mls/hr IVPB Q16H [facility] Rx#:[id number] Output: Gastric Drainage 200 Stool 200 Other: Voiding Method Indwelling Catheter Indwelling Catheter - Exam Physical exam 9o-year-old female sitting up in bed denying chest pain heart palpitation dizziness lightheadedness or chest pain when questioning Lungs decreased at the bases posterior no wheezing noted nasal cannula on 3 L Heart S1-S2 audible irregular 12-lead EKG atrial fibrillation Abdomen ostomy left lower quadrant moderate amount of liquid brown stool in ostomy bag surgical dressing dry slightly distended indwelling Noble catheter in place nasogastric tube to suction Extremities Venodyne's on bilateral lower - Labs CBC & Chem 7: 04/13/18 08:14 04/13/18 08:14 Labs: Abnormal Lab Results - Last 24 Hours (Table) 04/13/18 04/13/18 Range/Units 08:14 08:14 WBC 14.3 H (3.8-10.6) k/uL RBC 3.40 L (3.80-5.40) m/uL Hgb 9.4 L (11.4-16.0) gm/dL Hct 30.7 L (34.0-46.0) % MCHC 30.6 L (31.0-37.0) g/dL Plt Count 496 H (150-450) k/uL Neutrophils # 11.9 H (1.3-7.7) k/uL Monocytes # 1.1 H (0-1.0) k/uL BUN 19 H (7-17) mg/dL Glucose 67 L (74-99) mg/dL Calcium 7.7 L (8.4-10.2) mg/dL Microbiology - Last 24 Hours (Table) 04/10/18 21:28 Blood Culture Gram Stain - Preliminary Blood 04/11/18 20:08 Blood Culture - Preliminary Blood No Growth after 24 hours 04/11/18 20:11 Blood Culture - Preliminary Blood No Growth after 24 hours 04/10/18 21:28 Blood Culture - Final Blood 04/10/18 20:54 Urine Culture - Final Urine,Voided Assessment and Plan Assessment: Impression Present on admission diffuse abdominal pain with bloating inability to have a bowel movement for the past 2 months suspect due to high-grade mechanical bowel obstruction at the level of the lower descending colon with 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 Present on admission intractable nausea vomiting poor oral intake suspect due to high-grade mechanical small bowel obstruction History of a screening colonoscopy 03/13/2016 report reviewed descending colon mild diverticulosis external hemorrhoids several polyps removed Present on admission poor oral intake nausea suspect constipation from the cecum Current every day smoker Hearing deficit Status post April 11 left colectomy with end colostomy and takedown of splenic flexure, splenectomy partial omentectomy for massively dilated right colon with serosal tears, obstructing left colon mass suspicious for adrenocarcinoma, New-onset episode atrial fibrillation likely paroxysmal with a rapid ventricular response Plan Transfer to select care Continue recommendations by cardiology IV fluid for hydration Continue the nasogastric tube to intermittent suction Pain control DVT and GI prophylaxis IV antibiotic Zosyn as ordered Continue postop surgical care Reinforce smoking cessation information been advised to stop smoking cigarettes The above impression and plan of care have been discussed and directed by signing physician. Beth Contreras nurse practitioner acting as scribe for signing physician.
[2018-04-13] MEDS ORDERED: DEXTROSE 5% IN WATER 100 ML with AMIODARONE 150 MG IV ONE (12:08)
[2018-04-13] MEDS ORDERED: BENZOCAINE SPRAY 1 CAN MUCOUS MEM PRN (12:22)
--- NOTE | 2018-04-13 12:44 | P.PN ---
Progress Note - Text Progress Note Date: 04/13/18 Postoperative day #2 status post diverting colostomy epidural catheter placed for postoperative analgesia, patient developed atrial fibrillation today , and because patient could be started on anticoagulation, I discontinued the epidural catheter, the tip was intact, and patient will be started on IV medication for pain control
[2018-04-13] MEDS ORDERED: SODIUM CHLORIDE 0.9% 1,000 ML IV ONE (12:45)
--- NOTE | 2018-04-13 13:02 | ECHOF ---
Referral Reason:palpitations MEASUREMENTS -------- HEIGHT: 160.0 cm WEIGHT: 61.2 kg BP: 107/70 RVIDd: 3.1 cm (< 3.3) IVSd: 1.0 cm (0.6 - 1.1) LVIDd: 2.4 cm (3.9 - 5.3) LVPWd: 0.9 cm (0.6 - 1.1) IVSs: 1.0 cm LVIDs: 1.5 cm LVPWs: 1.1 cm LAESV Index (A-L): 14.82 ml/m Ao Diam: 3.2 cm (2.0 - 3.7) AV Cusp: 1.8 cm (1.5 - 2.6) LA Diam: 2.5 cm (2.7 - 3.8) MV E Tucker: 0.96 m/s MV DecT: 226 ms MV A Tucker: 0.92 m/s MV E/A Ratio: 1.04 RAP: 5.00 mmHg RVSP: 35.55 mmHg FINDINGS -------- Resting tachycardia (HR>100bpm). This was a technically adequate study. Patient refused lumason unless she got a drink. Patient is N PO. Unable to obtain subcostal images due to recent colostomy. The left ventricular size is normal. Left ventricular wall thickness is normal. Overall left vent ricular systolic function is normal with, an EF between 55 - 60 %. The right ventricle is normal in size and function. Normal LA size by volume 22+/-6 ml/m2. The right atrium is normal in size. The aortic valve is trileaflet, and appears structurally normal. No aortic stenosis or regurgitation. The mitral valve is normal. Mild mitral regurgitation is present. Mild tricuspid regurgitation present. There is mild pulmonary hypertension. The right ventricular systolic pressure, as measured by Doppler, is 35.55mmHg. The pulmonic valve was not well visualized. There is no pulmonic regurgitation present. The aortic root size is normal. IVC Not well visulized. There is no pericardial effusion. CONCLUSIONS -------- 1. Resting tachycardia (HR>100bpm). 2. This was a technically adequate study. 3. Patient refused lumason unless she got a drink. Patient is NPO. 4. Unable to obtain subcostal images due to recent colostomy. 5. The left ventricular size is normal. 6. Left ventricular wall thickness is normal. 7. Overall left ventricular systolic function is normal with, an EF between 55 - 60 %. 8. Normal LA size by volume 22+/-6 ml/m2. 9. The aortic valve is trileaflet, and appears structurally normal. No aortic stenosis or regurgitati on. 10. Mild mitral regurgitation is present. 11. Mild tricuspid regurgitation present. 12. There is mild pulmonary hypertension. 13. The pulmonic valve was not well visualized. 14. There is no pulmonic regurgitation present. 15. The aortic root size is normal. 16. IVC Not well visulized. 17. There is no pericardial effusion. CURING ROOM SUPERVISOR: Mariano Kessler RDCS
[2018-04-13] MEDS: AMIODARONE 450 MG in DEXTROSE 5% IN WATER 250 ML IV SCH ×4 (13:15→20:43)
[2018-04-13] MEDS ORDERED: DILTIAZEM DRIP BOLUS FROM BAG 1 MG SOLN IV ONE (14:20)
--- NOTE | 2018-04-13 14:29 | P.PN ---
Subjective This is a pleasant 72-year-old female past medical history significant for chronic nicotine dependence. She denies history of coronary artery disease, hypertension, dyslipidemia or diabetes mellitus. She presented to the hospital 04/10 with symptoms of abdominal pain, nausea and vomiting. She was found to have a high grade mechanical bowel obstruction at the level of the lower descending colon with evidence of constricting mass, consistent with adenocarcinoma of the colon. She underwent left colectomy with end colostomy, takedown of splenic flexure, splenectomy, partial omentectomy for obstructing left colon mass suspicious for adenocarcinoma with massively dilated right colon with serosal tearscolectomy with Dr. Hernandes. We saw her yesterday for tachycardia, which was sinus rhythm. However today she has went into atrial fibrillation with rapid ventricular response. EKG was obtained, heart rate was 170-185 range. She received one dose of IV lopressor 5 mg which didn't bring her heart rate down very much. Blood pressure was marginal 90/50 manually. She was seen and examined resting comfortably in bed in no acute distress. She denies chest pain, shortness of breath, dizziness or palpitations. She continues to complain of abdominal discomfort and is requesting water and coffee. Amiodarone infusion was started as well a sodium chloride bolus to bring up her blood pressure. Echocardiogram obtained yesterday reveals preserved left ventricular systolic function with ejection fraction 55-60%, mild MR, mild TR and mild pulmonary hypertension with RVSP 35 mmHg. Laboratory data reviewed, to be VC 14.3, hemoglobin 9.4, platelets 496, sodium 138, potassium 4.0, creatinine 0.72, cardiac enzymes negative 3 and magnesium 2.3. GENERAL: This is a 72-year-old female in no apparent distress at the time of my examination. Hard of hearing. HEENT: Head is atraumatic, normocephalic. Pupils are equal, round. Sclerae anicteric. Conjunctivae are clear. Mucous membranes of the mouth are moist. Neck is supple. There is no jugular venous distention. No carotid bruit is heard. NG tube in place. LUNGS: Clear to auscultation no wheezes, rales or rhonchi. No chest wall tenderness is noted on palpation or with deep breathing. HEART: Irregular rate and rhythm without murmurs, rubs or gallops. S1 and S2 heard. EXTREMITIES: No evidence of peripheral edema and no calf tenderness noted. ASSESSMENT New onset paroxysmal atrial fibrillation with rapid ventricular response Abdominal pain with high grade bowel obstruction s/p colectomy with colostomy creation and splenectomy Post-operative sinus tachycardia Chronic nicotine dependence PLAN Continue amiodarone infusion and add cardizem if blood pressure will tolerate. Long-term anticoagulation will need to be added if ok with surgery team for thromboembolic protection. This has been communicated and we are awaiting their approval prior to initiation. Attempted to contact her daughter to update on current situation and plan of care but unable to get through. We will continue to follow closely and make recommendations accordingly. Nurse Practitioner note has been reviewed, I agree with a documented findings and plan of care. Patient was seen and examined. Objective - Vital Signs Vital signs: Vital Signs Temp 98.4 F 04/13/18 13:09 Pulse 142 H 04/13/18 13:30 Resp 20 04/13/18 13:30 BP 100/64 04/13/18 13:45 Pulse Ox 95 04/13/18 13:30 Intake & Output 04/12/18 04/13/18 04/13/18 18:59 06:59 18:59 Intake Total 1974 2350 225 Output Total 200 1000 Balance 1974 2150 -775 Weight 61.235 kg Intake: Intake, IV Titration 1974 2350 225 Amount Dextrose 5% in Water 100 100 ml @ 618 mls/hr IV .Q10M [facility] with Amiodarone 150 mg Rx#:[id number] Lactated Ringers 1,000 ml 875 2000 125 @ 125 mls/hr IV .Q8H [facility] Rx#:[id number] Piperacillin-Tazobactam 3 100 100 .375 gm In Sodium Chloride 0.9% 100 ml @ 25 mls/hr IVPB Q8H [facility] Rx#: [id number] Sodium Chloride 0.9% 1, 1000 000 ml @ 999 mls/hr IV . Q1H1M [facility] Rx#:[id number] Vancomycin 1,250 mg In 250 Sodium Chloride 0.9% 250 ml @ 125 mls/hr IVPB Q16H [facility] Rx#:[id number] Output: Gastric Drainage 200 Urine 500 Stool 200 300 Other: Voiding Method Indwelling Catheter Indwelling Catheter Indwelling Catheter - Labs CBC & Chem 7: 04/13/18 08:14 04/13/18 08:14 Labs: Abnormal Lab Results - Last 24 Hours (Table) 04/13/18 04/13/18 Range/Units 08:14 08:14 WBC 14.3 H (3.8-10.6) k/uL RBC 3.40 L (3.80-5.40) m/uL Hgb 9.4 L (11.4-16.0) gm/dL Hct 30.7 L (34.0-46.0) % MCHC 30.6 L (31.0-37.0) g/dL Plt Count 496 H (150-450) k/uL Neutrophils # 11.9 H (1.3-7.7) k/uL Monocytes # 1.1 H (0-1.0) k/uL BUN 19 H (7-17) mg/dL Glucose 67 L (74-99) mg/dL Calcium 7.7 L (8.4-10.2) mg/dL Microbiology - Last 24 Hours (Table) 04/10/18 21:28 Blood Culture Gram Stain - Preliminary Blood 04/11/18 20:08 Blood Culture - Preliminary Blood No Growth after 24 hours 04/11/18 20:11 Blood Culture - Preliminary Blood No Growth after 24 hours 04/10/18 21:28 Blood Culture - Final Blood 04/10/18 20:54 Urine Culture - Final Urine,Voided
[2018-04-13] MEDS ORDERED: DILTIAZEM 50 MG in SODIUM CHLORIDE 0.9% 40 ML IV SCH (14:30)
--- NOTE | 2018-04-13 14:51 | CDI ---
Documentation Clarification Form Date: 04/13/18 From: Jessica Pride RN Admit Date: 04/10/2018 8:09:00 PM Patient Name: Anastasia Shin Visit Number: [id number] ATTENTION: The Clinical Documentation Specialists (CDI) and [facility] Coding Staff appreciate your assistance in clarifying documentation. Please respond to the clarification below the line at the bottom and electronically sign. The CDI & [facility] Coding staff will review the response and follow-up if needed. Please note: Queries are made part of the Legal Health Record. If you have any questions, please contact the author of this message via ITS. Dr. Lauren Kruse, Can you please render your opinion on the following documentation? Patient presented with abdominal pain., admitted with bowel obstruction, mall of colon. History/Risk Factors: smoker Clinical Indicators: WBC on admission 9.5, On 04/13 14.3 Lactic acid: 2.2 Blood cultures: 04/10: Gram Positive Cocci in clusters Vitals signs on admission: T 98.4, P 116, R 18, 103/73, 95% RA. Heart rate is running 92 - 150, temp. 98.4 - 100.0 Other Clinical Indicators: Pn 04/11: tachycardia. Consult 04/12: fever, leukocytosis, tachycardia, chills Treatment: ID Consult: Dr. Sparks Antibiotics: Ampicillin IVPB, Piperacillin IVPB, Vancomycin IVPB IV Bolus: .9 1000ML x 3 In your professional opinion, please clarify if these findings signify one of the following conditions, whether the condition is POA, and cause, if known: Condition Sepsis ruled in Sepsis ruled out SIRS, without underlying infectious process Other, please specify Unable to determine Present on Admission Yes No Possible sepsis Present on Admission No MTDD
[2018-04-13] MEDS ORDERED: HEPARIN SODIUM,PORCINE 5,000 UNIT/ML 1 ML VIAL IV ONE (15:29)
--- NOTE | 2018-04-13 15:31 | P.PN ---
Progress Note - Text Discussed with Beth rate nurse practitioner for Dr. Hernandes and they state the patient is appropriate for IV heparin anticoagulation secondary to atrial fibrillation for thrombolic embolic protection.
[2018-04-13] MEDS: HEPARIN SOD,PORK IN 0.45% NACL 25,000 UNIT in 0.45% NACL 1 250ML.BAG IV SCH (17:09)
[2018-04-13 17:16] LABS: Partial Thromboplastin Time 30.3 sec (22.0-30.0); Prothrombin Time 10.4 sec (9.0-12.0)
--- NOTE | 2018-04-13 17:59 | PN ---
PROGRESS NOTE DATE OF SERVICE: 04/13/2018. REASON FOR FOLLOWUP: 1. Fever, possible secondary peritonitis. 2. Bacteremia. INTERVAL HISTORY: The patient's fever pattern has improved. The patient's main symptom has been the NG tube and too that she is nothing by mouth and has not eaten anything and would like to have a cup of coffee. The patient denies having any chest pain or shortness of breath or cough or any worsening abdominal pain. EXAMINATION: Blood pressure 110/55, pulse of 93, temperature 98.9. She is 95% on 4 L nasal cannula. General description is an elderly female, lying in bed in no distress. Respiratory system: Unlabored breathing, clear to auscultation anteriorly. Heart S1, S2 regular rate and rhythm. Abdomen soft. Slight distention. No guarding or rigidity. Extremities: No edema of the feet. LABS: Hemoglobin 9.4, white count 14.3 with a BUN of 19, creatinine 0.72. Blood culture initially with gram-positive cocci, ID sensitivities pending. Repeat blood cultures currently pending. DIAGNOSTIC IMPRESSION AND PLAN: Patient with fever. Concern is likely for a possible secondary peritonitis in this patient admitted to the hospital with high-grade obstruction and some serosal tear at the time of surgery. The patient is status post diverting colostomy. She is currently covered with Zosyn and vancomycin. We will continue with these antibiotics while waiting for the culture to finalize. Continue supportive care. MMODL / IJN: [id number] /
--- NOTE | 2018-04-13 19:15 | P.PN ---
Subjective Progress Note Date: 04/12/18 Progress note being dictated for Dr. Kruse. 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 Maintained on IV fluid hydration and Zosyn. T-max 99.4, WBC up to 13.3. Pain controlled with epidural. Potassium 5. Patient extremely hard of hearing, continuously asking for something to drink,. NPO with NG tube present. Objective - Vital Signs Vital signs: Vital Signs Temp 99.7 F H 04/12/18 14:52 Pulse 115 H 04/12/18 16:41 Resp 19 04/12/18 16:41 BP 108/70 04/12/18 14:52 Pulse Ox 91 L 04/12/18 14:52 Intake & Output 04/11/18 04/12/18 04/12/18 18:59 06:59 18:59 Intake Total 2350 2612.5 1975 Output Total 465 750 Balance 1885 1862.5 1974 Weight 61.235 kg Intake: IV 2350 Intake, IV Titration 2612.5 1975 Amount Lactated Ringers 1,000 ml 1562.5 875 @ 125 mls/hr IV .Q8H [facility] Rx#:[id number] Piperacillin-Tazobactam 3 100 100 .375 gm In Sodium Chloride 0.9% 100 ml @ 25 mls/hr IVPB Q8H [facility] Rx#: [id number] Sodium Chloride 0.9% 1, 950 1000 000 ml @ 999 mls/hr IV . Q1H1M [facility] Rx#:[id number] Output: Urine 315 550 Stool 200 Estimated Blood Loss 150 Other: Voiding Method Indwelling Catheter Indwelling Catheter Indwelling Catheter - Exam PHYSICAL EXAM: VITAL SIGNS: As above GENERAL: Sitting up in bed, no acute distress, HEENT: Conjunctivae normal. eyes normal. Hard of hearing. NG tube present Oral mucosa dry NECK: No JVD. No thyroid enlargement. No LNs CARDIOVASCULAR: S1, S2 muffled. No murmur RESPIRATION: Breath sounds diminished in the bases. Occasional scattered rhonchi , no crackles. No bronchial breathing. ABDOMEN: Soft, status post surgery .No guarding. no masses palpable. Hypoactive Bowel sounds heard. Left lower quadrant ostomy with liquid brown stool. Dressing clean dry and intact. LEGS: No edema. no swelling PSYCHIATRY: Alert and oriented -2, mood and affect normal. NERVOUS SYSTEM: Cranial N 2-12 grossly normal. Moves all 4 limbs. Diffuse weakness No focal deficits. Skin: no rash , no lesions - Labs CBC & Chem 7: 04/13/18 08:14 04/13/18 08:14 Labs: Abnormal Lab Results - Last 24 Hours (Table) 04/11/18 04/11/18 04/12/18 Range/Units 20:08 20:09 05:49 WBC 12.5 H 13.3 H (3.8-10.6) k/uL Hgb 10.5 L (11.4-16.0) gm/dL MCHC 30.4 L (31.0-37.0) g/dL Plt Count 592 H 553 H (150-450) k/uL Neutrophils # 11.2 H (1.3-7.7) k/uL Neutrophils # (Manual) 10.00 H (1.3-7.7) k/uL Metamyelocytes # (Man) 0.25 H (0) k/uL Myelocytes # (Manual) 0.13 H (0) k/uL BUN 18 H (7-17) mg/dL Glucose 107 H (74-99) mg/dL Calcium 7.6 L (8.4-10.2) mg/dL Total Protein 4.3 L (6.3-8.2) g/dL Albumin 2.2 L (3.5-5.0) g/dL 04/12/18 Range/Units 05:49 WBC (3.8-10.6) k/uL Hgb (11.4-16.0) gm/dL MCHC (31.0-37.0) g/dL Plt Count (150-450) k/uL Neutrophils # (1.3-7.7) k/uL Neutrophils # (Manual) (1.3-7.7) k/uL Metamyelocytes # (Man) (0) k/uL Myelocytes # (Manual) (0) k/uL BUN 21 H (7-17) mg/dL Glucose (74-99) mg/dL Calcium 7.5 L (8.4-10.2) mg/dL Total Protein (6.3-8.2) g/dL Albumin (3.5-5.0) g/dL Microbiology - Last 24 Hours (Table) 04/10/18 21:28 Blood Culture Gram Stain - Preliminary Blood 04/10/18 21:28 Blood Culture - Final Blood 04/10/18 20:54 Urine Culture - Final Urine,Voided Assessment and Plan Assessment: -Acute bowel obstruction with obstructing mass left colonic mass, status post left colectomy with end colostomy, takedown splenic flexure and splenectomy and partial omentectomy -Gram-positive cocci bacteremia, repeat cultures pending -Tachycardia, possible sepsis secondary to the above. -Leukocytosis -Hard of hearing -Ongoing nicotine dependence -COPD Bronchitis- - Plan: Continue on current medication regime ,monitoring and symptomatic treatment. Maintain IV antibiotics of Zosyn and vancomycin. Repeat blood cultures pending, initial blood culture reported gram-positive cocci. IV fluid hydration. chronic disease manager may be needed at bedside as patient picking at NG tube-discussed with staff. Pathology pending. Prognosis guarded, given multiple complex medical issues. Further recommendations to follow. The impression and plan of care has been dictated as directed. : I performed a history and examination of this patient, discussed the same with the dictator. I agree with the dictator's note ,documented as a scribe. Any additional findings or plans will be noted.
--- NOTE | 2018-04-13 19:33 | P.PN ---
Subjective Progress Note Date: 04/13/18 Progress note being dictated for Dr. Kruse. 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 Maintained on IV fluid hydration and Zosyn. T-max 99.4, WBC up to 13.3. Pain controlled with epidural. Potassium 5. Patient extremely hard of hearing, continuously asking for something to drink,. NPO with NG tube present. 04/13/2018 developed atrial fibrillation with RVR. Echo reports EF 55-60% Bolused and now on amiodarone drip as well as heparin drip per cardiology. Transferred to selective care/telemetry unit. Maintained on Zosyn and vancomycin, T-max 100-currently afebrile. States abdominal pain controlled. Denies chest pain, palpitations or increased shortness of breath. Review of systems difficult to obtain as patient very hard of hearing, denies headache or focal deficits. Denies shortness of breath, denies chest pain, positive palpitations. Active Medications Albuterol/Ipratropium (Duoneb 0.5 Mg-3 Mg/3 Ml Soln) 3 ml INHALATION RT-TID PRN PRN Reason: Shortness Of Breath Or Wheezing Albuterol/Ipratropium (Duoneb 0.5 Mg-3 Mg/3 Ml Soln) 3 ml INHALATION RT-TID [facility] Last Admin: 04/13/18 11:08 Dose: 3 ml Benzocaine (Hurricaine Kirwin) 1 spray MUCOUS MEM QID PRN PRN Reason: Mouth Irritation Heparin Sodium (Porcine) (Heparin) 0 unit IV PER PROTOCOL PRN; Protocol PRN Reason: Low PTT Ropivacaine 400 mg/Hydromorphone HCl 3.75 mg/Sodium Chloride 250.375 mls @ 0 mls/hr EPIDURAL .Q0M PRN; Protocol PRN Reason: Pain Control Last Infusion: 04/12/18 16:56 Dose: 6 mls/hr Lactated Ringer's (Lactated Ringers) 1,000 mls @ 125 mls/hr IV .Q8H [facility] Last Admin: 04/13/18 17:12 Dose: 125 mls/hr Piperacillin Sod/Tazobactam (Sod 3.375 gm/ Sodium Chloride) 100 mls @ 25 mls/ hr IVPB Q8H [facility] Last Admin: 04/13/18 15:46 Dose: 25 mls/hr Vancomycin HCl 1,250 mg/ (Sodium Chloride) 250 mls @ 125 mls/hr IVPB Q16H [facility] Last Admin: 04/13/18 10:26 Dose: 125 mls/hr Amiodarone HCl 450 mg/ (Dextrose/Water) 259 mls @ 34.53 mls/hr IV .Q7H31M [facility]; Protocol Stop: 04/14/18 12:31 Last Titration: 04/13/18 19:24 Dose: 0.5 mg/min, 17.26 mls/hr Heparin Sodium/Sodium Chloride (25,000 unit/ Sodium Chloride) 250 mls @ 7.34 mls/hr IV .Q24H [facility]; Protocol Last Admin: 04/13/18 17:09 Dose: 12 units/kg/hr, 7.34 mls/hr Morphine Sulfate (Morphine Sulfate (Inj)) 4 mg IV Q4HR PRN PRN Reason: Severe Pain Last Admin: 04/11/18 09:34 Dose: 4 mg Naloxone HCl (Narcan) 0.2 mg IV Q2M PRN PRN Reason: Opioid Reversal Nicotine (Habitrol 14mg/24hr Patch) 1 patch TRANSDERM DAILY [facility] Last Admin: 04/13/18 10:32 Dose: 1 patch Ondansetron HCl (Zofran) 4 mg IVP Q8HR PRN PRN Reason: Nausea And Vomiting Last Admin: 04/11/18 10:33 Dose: 4 mg Oxybutynin Chloride (Ditropan Xl) 10 mg PO DAILY [facility] Last Admin: 04/13/18 11:02 Dose: Not Given Pantoprazole Sodium (Protonix) 40 mg IVP DAILY [facility] Last Admin: 04/13/18 10:28 Dose: 40 mg Objective - Vital Signs Vital signs: Vital Signs Temp 98.9 F 04/13/18 15:57 Pulse 93 04/13/18 15:57 Resp 20 04/13/18 15:57 BP 110/65 04/13/18 15:57 Pulse Ox 95 04/13/18 15:57 Intake & Output 04/13/18 04/13/18 04/14/18 06:59 18:59 06:59 Intake Total 2350 225 Output Total 200 1000 Balance 2150 -775 Intake: Intake, IV Titration 2350 225 Amount Dextrose 5% in Water 100 100 ml @ 618 mls/hr IV .Q10M ONE with Amiodarone 150 mg Rx#:[id number] Lactated Ringers 1,000 ml 2000 125 @ 125 mls/hr IV .Q8H [facility] Rx#:[id number] Piperacillin-Tazobactam 3 100 .375 gm In Sodium Chloride 0.9% 100 ml @ 25 mls/hr IVPB Q8H [facility] Rx#: [id number] Vancomycin 1,250 mg In 250 Sodium Chloride 0.9% 250 ml @ 125 mls/hr IVPB Q16H [facility] Rx#:[id number] Output: Gastric Drainage 200 Urine 500 Stool 200 300 Other: Voiding Method Indwelling Catheter Indwelling Catheter - Exam PHYSICAL EXAM: VITAL SIGNS: As above GENERAL: Sitting up in bed, no acute distress, HEENT: Conjunctivae normal. eyes normal. Hard of hearing. NG tube present Oral mucosa dry NECK: No JVD. No thyroid enlargement. No LNs CARDIOVASCULAR: S1, S2 muffled. Irregular,tacycardic, No murmur. RESPIRATION: Breath sounds diminished in the bases. Occasional scattered rhonchi , no crackles. No wheezing ABDOMEN: Soft, status post surgery .No guarding. no masses palpable. Hypoactive Bowel sounds heard. Left lower quadrant ostomy with liquid brown stool. Dressing clean dry and intact. LEGS: No edema. no swelling PSYCHIATRY: Alert and oriented -2, mood and affect normal. NERVOUS SYSTEM: Cranial N 2-12 grossly normal. Moves all 4 limbs. Diffuse weakness No focal deficits. Skin: no rash , no lesions Microbiology 04/10/18 21:28 Blood Blood Culture Gram Stain - Preliminary 04/11/18 20:08 Blood Blood Culture - Preliminary No Growth after 24 hours 04/11/18 20:11 Blood Blood Culture - Preliminary No Growth after 24 hours 04/10/18 21:28 Blood Blood Culture - Final 04/10/18 20:54 Urine,Voided Urine Culture - Final - Labs CBC & Chem 7: 04/13/18 08:14 04/13/18 08:14 Labs: Abnormal Lab Results - Last 24 Hours (Table) 04/13/18 04/13/18 04/13/18 Range/Units 08:14 08:14 16:42 WBC 14.3 H (3.8-10.6) k/uL RBC 3.40 L (3.80-5.40) m/uL Hgb 9.4 L (11.4-16.0) gm/dL Hct 30.7 L (34.0-46.0) % MCHC 30.6 L (31.0-37.0) g/dL Plt Count 496 H (150-450) k/uL Neutrophils # 11.9 H (1.3-7.7) k/uL Monocytes # 1.1 H (0-1.0) k/uL APTT 30.3 H (22.0-30.0) sec BUN 19 H (7-17) mg/dL Glucose 67 L (74-99) mg/dL Calcium 7.7 L (8.4-10.2) mg/dL Microbiology - Last 24 Hours (Table) 04/10/18 21:28 Blood Culture Gram Stain - Preliminary Blood 04/11/18 20:08 Blood Culture - Preliminary Blood No Growth after 24 hours 04/11/18 20:11 Blood Culture - Preliminary Blood No Growth after 24 hours 04/10/18 21:28 Blood Culture - Final Blood Assessment and Plan Assessment: -Acute bowel obstruction with obstructing mass left colonic mass, status post left colectomy with end colostomy, takedown splenic flexure and splenectomy and partial omentectomy -Gram-positive cocci bacteremia, repeat cultures pending -Tachycardia, Fevers, possibly secondary to peritonitis -Possible sepsis secondary to the above -Atrial fibrillation with RVR, new onset -Leukocytosis -Hard of hearing -Ongoing nicotine dependence -COPD -Bronchitis- - Plan: Continue on current medication regime ,monitoring and symptomatic treatment. Bolused and on amiodarone drip, transferring to [facility] care. IV antibiotics of Zosyn and vancomycin as per ID. IV fluid hydration, GI and DVT prophylaxis. Repeat blood cultures pending. Pathology pending. Smoking sensation readdressed. Prognosis guarded, given multiple complex medical issues. Further recommendations to follow. The impression and plan of care has been dictated as directed. : I performed a history and examination of this patient, discussed the same with the dictator. I agree with the dictator's note ,documented as a scribe. Any additional findings or plans will be noted.
[2018-04-14] MEDS: VANCOMYCIN 1,250 MG in SODIUM CHLORIDE 0.9% 250 ML IVPB SCH ×2 (02:56→17:49)
[2018-04-14] MEDS: PIPERACILLIN-TAZOBACTAM 3.375 GM in SODIUM CHLORIDE 0.9% 100 ML IVPB SCH ×3 (02:58→21:48)
[2018-04-14] MEDS: AMIODARONE 450 MG in DEXTROSE 5% IN WATER 250 ML IV SCH ×4 (03:16→11:54)
--- NOTE | 2018-04-14 03:42 | XR ---
EXAMINATION TYPE: XR chest 1V portable DATE OF EXAM: 04/14/2018 COMPARISON: 04/11/2018 HISTORY: NG tube placement TECHNIQUE: Single frontal view of the chest is obtained. FINDINGS: Heart is enlarged. There is some pulmonary vascular congestion. There is slight blunting o f costophrenic angles. There are calcified granulomata at the left pulmonary hilum. There are chest l papito. I see no nasogastric tube. IMPRESSION: The nasogastric tube is been since last exam. Congestive heart failure appears worse sampson n last exam.
--- NOTE | 2018-04-14 05:18 | XR ---
EXAM: XR Chest, 1 View CLINICAL HISTORY: ITS.REASON XR Reason: NG tube placement TECHNIQUE: Frontal view of the chest. COMPARISON: 04/14/18 chest x-ray IMPRESSION: NG tube terminates just past the GE junction. Recommend advancing 10-15 cm.
[2018-04-14] MEDS: MORPHINE SULFATE 4 MG/ML SYRINGE IV PRN ×2 (06:16→17:56)
[2018-04-14 06:31] LABS: Basophils % (A) 0 %; Eosinophils # (A) 0.1 k/uL (0-0.7); Eosinophils % (A) 1 %; HCT 29.1 % (34.0-46.0); HGB 8.9 gm/dL (11.4-16.0); Hypochromasia Slight; Lymphocytes # (A) 1.1 k/uL (1.0-4.8); Lymphocytes % (A) 10 %; MCH 27.6 pg (25.0-35.0); MCHC 30.6 g/dL (31.0-37.0); MCV 90.2 fL (80.0-100.0); Monocytes # (A) 0.8 k/uL (0-1.0); Monocytes % (A) 7 %; Neutrophils # (A) 8.9 k/uL (1.3-7.7); Neutrophils % (A) 81 %; Platelet Count 502 k/uL (150-450); RBC 3.23 m/uL (3.80-5.40); WBC 10.9 k/uL (3.8-10.6)
[2018-04-14 06:36] LABS: Potassium 3.4 mmol/L (3.5-5.1)
[2018-04-14 06:37] LABS: Anion Gap 6 mmol/L; Blood Urea Nitrogen 17 mg/dL (7-17); Calcium 7.6 mg/dL (8.4-10.2); Carbon Dioxide 22 mmol/L (22-30); Chloride 109 mmol/L (98-107); Glucose 83 mg/dL (74-99); Sodium 137 mmol/L (137-145)
[2018-04-14] MEDS: IPRATROPIUM-ALBUTEROL 3 ML NEB INHALATION SCH ×3 (07:00→22:32)
[2018-04-14] MEDS: OXYBUTYNIN 10 MG TAB.ER.24 PO SCH (08:21)
--- NOTE | 2018-04-14 08:21 | CDI ---
Documentation Clarification Form Date: 04/14/18 From: Jessica Pride RN Admit Date: 04/10/2018 8:09:00 PM Patient Name: Anastasia Shin Visit Number: [id number] ATTENTION: The Clinical Documentation Specialists (CDI) and [facility] Coding Staff appreciate your assistance in clarifying documentation. Please respond to the clarification below the line at the bottom and electronically sign. The CDI & [facility] Coding staff will review the response and follow-up if needed. Please note: Queries are made part of the Legal Health Record. If you have any questions, please contact the author of this message via ITS. Dr. Lauren Kruse, Can you please render your opinion on the following documentation? Patient admitted with a bowel obstruction, mass of colon. On 04/11 Patient had a Left colectomy with end colostomy, takedown of splenic flexure, splenectomy and partial omentectomy. History/Risk Factors: Smoker Clinical indicators: PN 04/12: Estimated blood loss 150 Hemoglobin on admission: 15.9, On 04/11: 13.2, 11.4, On 04/12: 10.5, 04/13: 9.4, 04/14: 8.9 Hematocrit on admission: 51.0, On 04/11: 42.5, 36.7, On 04/12: 34.6, 04/13: 30.7, 04/14: 29.1 Treatment: Monitor HGB and HCT In order to capture the severity of condition, please clarify if the above documentation signifies any of the following: Acute blood loss anemia Acute on chronic blood loss anemia Chronic blood loss anemia Iron deficiency anemia Hemolytic anemia Unable to determine Other, please specify Please clarify if the abnormal lab findings are? An expected outcome of surgery An unexpected outcome of surgery its in my PN 04/15/18 its in my PN MTDD
[2018-04-14] MEDS: PANTOPRAZOLE 40 MG/10 ML VIAL IVP SCH (08:29)
[2018-04-14] MEDS: NICOTINE 14MG/24HR PATCH TRANSDERM SCH (08:29)
--- NOTE | 2018-04-14 08:45 | CDI ---
Documentation Clarification Form Date: 04/14/18 From: Jessica Pride RN Admit Date: 04/10/2018 8:09:00 PM Patient Name: Anastasia Shin Visit Number: [id number] ATTENTION: The Clinical Documentation Specialists (CDI) and [facility] Coding Staff appreciate your assistance in clarifying documentation. Please respond to the clarification below the line at the bottom and electronically sign. The CDI & [facility] Coding staff will review the response and follow-up if needed. Please note: Queries are made part of the Legal Health Record. If you have any questions, please contact the author of this message via ITS. Dr. Doreen Moralez, New onset episode Atrial Fibrillation with RVR is documented in the PN 04/13. 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 History/Risk Factors: smoker Clinical Indicators: Heart rate 04/11 - 04/14 ranging from 101 - 185 Vitals on admission: T 98.4, P 116, R 18, 103/73, 95% RA PN 04/13: States: saw her yesterday for tachycardia, which was sinus rhythm. However today she has went into atrial fibrillation with rapid ventricular response. EKG was obtained; heart rate was 170-185 range Treatment: PN 04/13: She received one dose of IV Lopressor 5 mg which didn't bring, patient started on an Amiodarone infusion. Heparin IVPB Telemetry Monitoring In order to accurately reflect this patients severity of illness, please clarify if the post-operative diagnosis is: An expected post-procedural or post-surgical condition Integral to the procedure Inherent to the procedure An unexpected post-procedural or post-surgical condition related to surgical care Other, please specify XXXX Unable to determine An unexpected outcome of surgery MTDD
--- NOTE | 2018-04-14 10:06 | XR ---
EXAMINATION TYPE: XR chest 1V portable DATE OF EXAM: 04/14/2018 COMPARISON: 04/14/2018 INDICATION: NG tube placement TECHNIQUE: Single frontal view of the chest is obtained. FINDINGS: The heart size is prominent. The pulmonary vasculature is normal. Left lower lobe infiltrate is present. Small left pleural effusion may be present. Findings are stabl e from comparison. Nasogastric tube is been adjusted. The tip now resides within the right upper quadrant. IMPRESSION: 1. Left lower lobe infiltrate and/or small left pleural effusion. 2. Nasogastric tube placement with the tip in the right upper quadrant of the abdomen.
[2018-04-14] MEDS ORDERED: Potassium Replacement Protocol 1 EACH MISC MISCELLANE PRN (10:29)
[2018-04-14] MEDS: LACTATED RINGERS 1,000 ML IV SCH ×3 (11:33→23:20)
[2018-04-14] MEDS: POTASSIUM CHLORIDE 20 MEQ in WATER FOR INJECTION 1 100ML.BAG IVPB SCH ×2 (11:57→14:49)
--- NOTE | 2018-04-14 14:36 | P.PN ---
Subjective Progress Note Date: 04/14/18 72-year-old female seen this afternoon sitting up in a chair family at bedside updated on plan of care patient requesting a diet states she's thirsty and hungry. Nasal gastric tube to suction 100 output. Ostomy left lower quadrant a moderate amount of liquid brown stool patient is denying any nausea vomiting. Does occasionally have 5 L heart rate in the 90s to 100s. White count down to 10.9 potassium 3.4 which replacement has been given April 11 left colectomy with end colostomy , takedown splenic flexure, splenectomy, partial omentectomy for obstructing left colon mass suspicious for adenocarcinoma, massively dilated right colon with serosal tears Objective - Vital Signs Vital signs: Vital Signs Temp 98.2 F 04/14/18 11:33 Pulse 104 H 04/14/18 12:52 Resp 18 04/14/18 12:00 BP 120/63 04/14/18 11:33 Pulse Ox 98 04/14/18 11:33 Intake & Output 04/13/18 04/14/18 04/14/18 18:59 06:59 18:59 Intake Total 225 585.086 259 Output Total 1000 250 600 Balance -775 335.086 -341 Weight 61.2 kg 61.2 kg Intake: Intake, IV Titration 225 235.086 259 Amount Amiodarone 450 mg In 235.086 259 Dextrose 5% in Water 250 ml @ 0.5 MG/MIN 17.26 mls /hr IV .Q15H1M [facility] Rx#: [id number] Dextrose 5% in Water 100 100 ml @ 618 mls/hr IV .Q10M ONE with Amiodarone 150 mg Rx#:[id number] Lactated Ringers 1,000 ml 125 @ 125 mls/hr IV .Q8H [facility] Rx#:[id number] Oral 350 Output: Gastric Drainage 200 Urine 500 250 600 Stool 300 Other: Voiding Method Indwelling Catheter Indwelling Catheter Indwelling Catheter - Exam Physical exam 9o-year-old female sitting up in a chair denying chest pain heart palpitation dizziness lightheadedness or chest pain when questioning Lungs decreased at the bases posterior no wheezing noted no shortness of breath Heart S1-S2 audible monitor sinus rhythm rate in the 80s to 100s denying chest Abdomen ostomy left lower quadrant moderate amount of liquid brown stool in ostomy bag surgical dressing dry slightly distended indwelling Noble catheter in place nasogastric tube to suction is requesting a diet states in [facility] Extremities Venodyne's on bilateral lower - Labs CBC & Chem 7: 04/14/18 05:55 04/14/18 05:55 Labs: Abnormal Lab Results - Last 24 Hours (Table) 04/13/18 04/13/18 04/14/18 Range/Units 16:42 21:15 05:55 WBC 10.9 H (3.8-10.6) k/uL RBC 3.23 L (3.80-5.40) m/uL Hgb 8.9 L (11.4-16.0) gm/dL Hct 29.1 L (34.0-46.0) % MCHC 30.6 L (31.0-37.0) g/dL Plt Count 502 H (150-450) k/uL Neutrophils # 8.9 H (1.3-7.7) k/uL APTT 30.3 H 74.0 H (22.0-30.0) sec Potassium (3.5-5.1) mmol/L Chloride (98-107) mmol/L Calcium (8.4-10.2) mg/dL 04/14/18 04/14/18 Range/Units 05:55 05:55 WBC (3.8-10.6) k/uL RBC (3.80-5.40) m/uL Hgb (11.4-16.0) gm/dL Hct (34.0-46.0) % MCHC (31.0-37.0) g/dL Plt Count (150-450) k/uL Neutrophils # (1.3-7.7) k/uL APTT 30.9 H (22.0-30.0) sec Potassium 3.4 L (3.5-5.1) mmol/L Chloride 109 H (98-107) mmol/L Calcium 7.6 L (8.4-10.2) mg/dL Microbiology - Last 24 Hours (Table) 04/11/18 20:08 Blood Culture - Preliminary Blood No Growth after 48 hours 04/11/18 20:11 Blood Culture - Preliminary Blood No Growth after 48 hours 04/12/18 17:52 Blood Culture - Preliminary Blood No Growth after 24 hours Assessment and Plan Assessment: Impression Present on admission diffuse abdominal pain with bloating inability to have a bowel movement for the past 2 months suspect due to high-grade mechanical bowel obstruction at the level of the lower descending colon with 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 Present on admission intractable nausea vomiting poor oral intake suspect due to high-grade mechanical small bowel obstruction History of a screening colonoscopy 03/13/2016 report reviewed descending colon mild diverticulosis external hemorrhoids several polyps removed Present on admission poor oral intake nausea suspect constipation from the cecum Current every day smoker Hearing deficit Status post April 11 left colectomy with end colostomy and takedown of splenic flexure, splenectomy partial omentectomy for massively dilated right colon with serosal tears, 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 Beth Contreras nurse practitioner acting as scribe for signing physician.
--- NOTE | 2018-04-14 18:21 | PN ---
PROGRESS NOTE This lady was underwent a bowel surgery because of obstruction, which seemed to be a mechanical obstruction with a mass. She had a colonic resection with a colostomy. She was in atrial fibrillation, placed on amiodarone drip. This morning she is in sinus. We will continue the amiodarone drip. She cannot take anything orally. Blood pressure is good. S1-S2 is heard normally. She is in a sinus rhythm, rhythm is regular. Rate is 90. No significant murmurs. Lungs reveal fairly decent air entry. Abdomen exam deferred. Lower extremities reveal diminished pulses. Plan is to obtain an EKG. Continue amiodarone at a low dose drip since she cannot take anything orally. She is in sinus rhythm. We will follow her closely. MMODL / IJN: [id number] /
--- NOTE | 2018-04-14 20:37 | P.PN ---
Subjective Progress Note Date: 04/14/18 Progress note being dictated for Dr. Kruse. 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 Maintained on IV fluid hydration and Zosyn. T-max 99.4, WBC up to 13.3. Pain controlled with epidural. Potassium 5. Patient extremely hard of hearing, continuously asking for something to drink,. NPO with NG tube present. 04/13/2018 developed atrial fibrillation with RVR. Echo reports EF 55-60% Bolused and now on amiodarone drip as well as heparin drip per cardiology. Transferred to selective care/telemetry unit. Maintained on Zosyn and vancomycin, T-max 100-currently afebrile. States abdominal pain controlled. Denies chest pain, palpitations or increased shortness of breath. 04/14/2018 maintained on amiodarone and heparin drips. Converted to sinus rhythm. Continues on IV antibiotics of Zosyn and vancomycin. Up in chair with assistance of PT. continues to assess for food and drink, NG tube to low intermittent suction. IV fluid hydration. Denies nausea or vomiting. Receiving potassium supplements for potassium at 3.4. Afebrile, leukocytosis improving. 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 Benign spleen and adipose tissue/omentum. Review of systems: patient very hard of hearing, denies headache or focal deficits. Denies shortness of breath, denies chest pain, positive palpitations. Active Medications Generic Name Dose Route Start Last Admin Trade Name Freq PRN Reason Stop Dose Admin Albuterol/Ipratropium 3 ml 04/10/18 23:28 Duoneb 0.5 Mg-3 Mg/3 Ml Soln INHALATION RT-TID PRN Shortness Of Breath Or Wheezing Albuterol/Ipratropium 3 ml 04/11/18 08:00 04/14/18 12:42 Duoneb 0.5 Mg-3 Mg/3 Ml Soln INHALATION 3 ml RT-TID SHERICE Administration Benzocaine 1 spray 04/13/18 12:22 Hurricaine Temple MUCOUS MEM QID PRN Mouth Irritation Heparin Sodium (Porcine) 0 unit 04/13/18 15:29 Heparin IV PER PROTOCOL PRN Low PTT Protocol Ropivacaine 400 mg/ 250.375 mls @ 0 mls/hr 04/11/18 12:00 04/12/18 16:56 Hydromorphone HCl 3.75 mg/ EPIDURAL 6 mls/hr Sodium Chloride .Q0M PRN Infusion Pain Control Protocol Per Protocol Lactated Ringer's 1,000 mls @ 125 mls/hr 04/11/18 17:00 04/14/18 17:48 Lactated Ringers IV Not Given .Q8H SHERICE Piperacillin Sod/Tazobactam 100 mls @ 25 mls/hr 04/12/18 03:00 04/14/18 12:55 Sod 3.375 gm/ Sodium Chloride IVPB 25 mls/hr Q8H SHERICE Administration Vancomycin HCl 1,250 mg/ 250 mls @ 125 mls/hr 04/12/18 18:00 04/14/18 17:49 Sodium Chloride IVPB 125 mls/hr Q16H SHERICE Administration Amiodarone HCl 450 mg/ 259 mls @ 17.26 mls/hr 04/13/18 12:30 04/14/18 11:54 Dextrose/Water IV 04/15/18 09:00 0.5 mg/min .Q15H1M SHERICE 17.26 mls/hr Administration Protocol 0.5 MG/MIN Heparin Sodium/Sodium Chloride 250 mls @ 7.34 mls/hr 04/13/18 15:30 04/13/18 17:09 25,000 unit/ Sodium Chloride IV 12 units/kg/hr .Q24H SHERICE 7.34 mls/hr Administration Protocol 12 UNITS/KG/HR Miscellaneous Information 0 each 04/15/18 09:00 Vancomycin Trough Due MISCELLANE 04/15/18 09:01 DIRECTED ONE Miscellaneous Information 1 each 04/14/18 10:29 Potassium Per Protocol MISCELLANE DAILY PRN Per Protocol Protocol Morphine Sulfate 4 mg 04/10/18 20:17 04/14/18 17:56 Morphine Sulfate (Inj) IV 4 mg Q4HR PRN Administration Severe Pain Naloxone HCl 0.2 mg 04/11/18 11:30 Narcan IV Q2M PRN Opioid Reversal Nicotine 1 patch 04/11/18 09:00 04/14/18 08:29 Habitrol 14mg/24hr Patch TRANSDERM 1 patch DAILY SHERICE Administration Ondansetron HCl 4 mg 04/10/18 20:17 04/11/18 10:33 Zofran IVP 4 mg Q8HR PRN Administration Nausea And Vomiting Oxybutynin Chloride 10 mg 04/11/18 09:00 04/14/18 08:21 Ditropan Xl PO Not Given DAILY SHERICE Pantoprazole Sodium 40 mg 04/11/18 09:00 04/14/18 08:29 Protonix IVP 40 mg DAILY SHERICE Administration Objective - Vital Signs Vital signs: Vital Signs Temp 98.2 F 04/14/18 11:33 Pulse 84 04/14/18 15:19 Resp 18 04/14/18 15:19 BP 132/65 04/14/18 15:19 Pulse Ox 96 04/14/18 15:19 Intake & Output 04/14/18 04/14/18 04/15/18 06:59 18:59 06:59 Intake Total 908.861 1275 Output Total 250 1200 Balance 335.086 734 Weight 61.2 kg 61.2 kg Intake: Intake, IV Titration 436.632 9611 Amount Amiodarone 450 mg In 235.086 259 Dextrose 5% in Water 250 ml @ 0.5 MG/MIN 17.26 mls /hr IV .Q15H1M SHERICE Rx#: [id number] Lactated Ringers 1,000 ml 1375 @ 125 mls/hr IV .Q8H SHERICE Rx#:[id number] Piperacillin-Tazobactam 3 100 .375 gm In Sodium Chloride 0.9% 100 ml @ 25 mls/hr IVPB Q8H SHERICE Rx#: [id number] Potassium Chloride 20 meq 200 In Water For Injection 1 100ml.bag @ 50 mls/hr IVPB Q2H SHERICE Rx#: [id number] Oral 350 Output: Gastric Drainage 100 Urine 250 1100 Other: Voiding Method Indwelling Catheter Indwelling Catheter - Exam PHYSICAL EXAM: VITAL SIGNS: As above GENERAL: Sitting up in chair, no acute distress, visiting with family HEENT: Conjunctivae normal. eyes normal. Hard of hearing. NG tube present Oral mucosa dry NECK: No JVD. No thyroid enlargement. No LNs CARDIOVASCULAR: S1, S2 muffled. No murmur. RESPIRATION: Breath sounds diminished in the bases. No rhonchi, no crackles. No wheezing ABDOMEN: Soft, status post surgery .No guarding. no masses palpable. Hypoactive Bowel sounds heard. Left lower quadrant ostomy with liquid brown stool. Dressing clean dry and intact. LEGS: No edema. no swelling PSYCHIATRY: Alert and oriented -2, mood and affect normal. NERVOUS SYSTEM: Cranial N 2-12 grossly normal. Moves all 4 limbs. Diffuse weakness No focal deficits. Skin: no rash , no lesions Microbiology 04/12/18 17:52 Blood Blood Culture - Preliminary No Growth after 48 hours 04/11/18 20:08 Blood Blood Culture - Preliminary No Growth after 48 hours 04/11/18 20:11 Blood Blood Culture - Preliminary No Growth after 48 hours 04/10/18 21:28 Blood Blood Culture Gram Stain - Preliminary 04/10/18 21:28 Blood Blood Culture - Final 04/10/18 20:54 Urine,Voided Urine Culture - Final - Labs CBC & Chem 7: 04/14/18 05:55 04/14/18 05:55 Labs: Abnormal Lab Results - Last 24 Hours (Table) 04/13/18 04/14/18 04/14/18 Range/Units 21:15 05:55 05:55 WBC 10.9 H (3.8-10.6) k/uL RBC 3.23 L (3.80-5.40) m/uL Hgb 8.9 L (11.4-16.0) gm/dL Hct 29.1 L (34.0-46.0) % MCHC 30.6 L (31.0-37.0) g/dL Plt Count 502 H (150-450) k/uL Neutrophils # 8.9 H (1.3-7.7) k/uL APTT 74.0 H (22.0-30.0) sec Potassium 3.4 L (3.5-5.1) mmol/L Chloride 109 H (98-107) mmol/L Calcium 7.6 L (8.4-10.2) mg/dL 04/14/18 Range/Units 05:55 WBC (3.8-10.6) k/uL RBC (3.80-5.40) m/uL Hgb (11.4-16.0) gm/dL Hct (34.0-46.0) % MCHC (31.0-37.0) g/dL Plt Count (150-450) k/uL Neutrophils # (1.3-7.7) k/uL APTT 30.9 H (22.0-30.0) sec Potassium (3.5-5.1) mmol/L Chloride (98-107) mmol/L Calcium (8.4-10.2) mg/dL Microbiology - Last 24 Hours (Table) 04/12/18 17:52 Blood Culture - Preliminary Blood No Growth after 48 hours 04/11/18 20:08 Blood Culture - Preliminary Blood No Growth after 48 hours 04/11/18 20:11 Blood Culture - Preliminary Blood No Growth after 48 hours Assessment and Plan Assessment: -Acute bowel obstruction with obstructing mass left colonic mass, status post left colectomy with end colostomy, takedown splenic flexure and splenectomy and partial omentectomy. Pathology reporting adenocarcinoma. -Gram-positive cocci bacteremia, repeat cultures pending -Tachycardia, Fevers, possibly secondary to peritonitis -Possible sepsis secondary to the above -Atrial fibrillation with RVR, new onset -Leukocytosis -Hard of hearing -Ongoing nicotine dependence -COPD -Bronchitis- - Plan: Continue on current medication regime ,monitoring and symptomatic treatment. Continue on amiodarone , heparin, and IV fluid resuscitation. IV antibiotics of Zosyn and vancomycin as per ID. GI and DVT prophylaxis. Repeat blood cultures pending. Pathology report now in, will need to discuss with patient and family tomorrow. Oncology consult initiated. Prognosis guarded, given multiple complex medical issues. Further recommendations to follow. The impression and plan of care has been dictated as directed. : I performed a history and examination of this patient, discussed the same with the dictator. I agree with the dictator's note ,documented as a scribe. Any additional findings or plans will be noted.
[2018-04-14] MEDS: HEPARIN SOD,PORK IN 0.45% NACL 25,000 UNIT in 0.45% NACL 1 250ML.BAG IV SCH (22:11)
--- NOTE | 2018-04-14 22:48 | PN ---
PROGRESS NOTE DATE OF SERVICE: 04/14/2018 REASON FOR FOLLOWUP: Fever and bacteremia. INTERVAL HISTORY: The patient is afebrile. The patient's main symptom has been NG tube and that she has not been fed in 4 days. Patient denies having any chest pain or shortness of breath or cough or any worsening abdominal pain. No nausea, vomiting or diarrhea. PHYSICAL EXAMINATION: Her vital signs are stable. There is no fever recorded. General description is an elderly female up in the bed in no distress. RESPIRATORY SYSTEM: Unlabored breathing with decreased breath sounds at the bases. No wheeze. HEART: S1, S2. Regular rate and rhythm. ABDOMEN: Soft. Mildly distended. Incision is currently intact. LABS: Blood culture with gram-positive cocci. Repeat blood culture currently pending. DIAGNOSTIC IMPRESSION AND PLAN: Patient admitted to hospital with abdominal pain with high-grade obstruction, status post laparotomy with diverting colostomy and resection of with mucosal tear and concern for possible secondary peritonitis, also with evidence of gram-positive bacteremia. The patient is currently covered with Zosyn and vancomycin. That will be continued while waiting for the culture to finalize. Continue with supportive care. MMODL / IJN: [id number] /
[2018-04-15] MEDS: AMIODARONE 450 MG in DEXTROSE 5% IN WATER 250 ML IV SCH ×2 (01:52)
[2018-04-15] MEDS: PIPERACILLIN-TAZOBACTAM 3.375 GM in SODIUM CHLORIDE 0.9% 100 ML IVPB SCH ×3 (03:20→20:05)
[2018-04-15 05:47] LABS: Basophils % (A) 0 %; Eosinophils # (A) 0.2 k/uL (0-0.7); Eosinophils % (A) 2 %; HCT 31.8 % (34.0-46.0); HGB 9.7 gm/dL (11.4-16.0); Hypochromasia Marked; Lymphocytes # (A) 1.3 k/uL (1.0-4.8); Lymphocytes % (A) 13 %; MCH 28.1 pg (25.0-35.0); MCHC 30.4 g/dL (31.0-37.0); MCV 92.7 fL (80.0-100.0); Mean Platelet Volume 7.7; Monocytes # (A) 0.5 k/uL (0-1.0); Monocytes % (A) 5 %; Neutrophils % (A) 78 %; Platelet Count 518 k/uL (150-450); RBC 3.43 m/uL (3.80-5.40); RDW 14.8 % (11.5-15.5); WBC 10.2 k/uL (3.8-10.6)
[2018-04-15 05:55] LABS: Anion Gap 8 mmol/L; Blood Urea Nitrogen 10 mg/dL (7-17); Calcium 7.8 mg/dL (8.4-10.2); Carbon Dioxide 18 mmol/L (22-30); Chloride 109 mmol/L (98-107); Glucose 69 mg/dL (74-99); Potassium 3.6 mmol/L (3.5-5.1); Sodium 135 mmol/L (137-145)
[2018-04-15] MEDS: HEPARIN SODIUM,PORCINE 5,000 UNIT/ML 1 ML VIAL IV PRN ×2 (06:37→14:34)
[2018-04-15] MEDS: IPRATROPIUM-ALBUTEROL 3 ML NEB INHALATION SCH ×3 (07:24→20:22)
--- NOTE | 2018-04-15 08:24 | CDI ---
Documentation Clarification Form Date: 04/15/2018 8:20:00 AM From: Jessica Pride RN Admit Date: 04/10/2018 8:09:00 PM Patient Name: Anastasia Shin Visit Number: [id number] ATTENTION: The Clinical Documentation Specialists (CDI) and [facility] Coding Staff appreciate your assistance in clarifying documentation. Please respond to the clarification below the line at the bottom and electronically sign. The CDI & [facility] Coding staff will review the response and follow-up if needed. Please note: Queries are made part of the Legal Health Record. If you have any questions, please contact the author of this message via ITS. Dr. Lauren Kruse, Can you please render your opinion on the following documentation? Patient admitted with a bowel obstruction , mass of colon. On 04/11 Patient had a Left colectomy with end colostomy, takedown of splenic flexure, splenectomy and partial omentectomy. History/Risk Factors: Smoker Clinical indicators: PN 04/12: Estimated blood loss 150 Hemoglobin on admission: 15.9, On 04/11: 13.2, 11.4, On 04/12: 10.5, 04/13: 9.4, 04/14: 8.9 Hematocrit on admission: 51.0, On 04/11: 42.5, 36.7, On 04/12: 34.6, 04/13: 30.7, 04/14: 29.1 Treatment: Monitor HGB and HCT In order to capture the severity of condition, please clarify if the above documentation signifies any of the following: Acute blood loss anemia Acute on chronic blood loss anemia Chronic blood loss anemia Iron deficiency anemia Hemolytic anemia Unable to determine Other, please specify Please clarify if it was: An expected outcome of surgery An unexpected outcome of surgery MTDD
[2018-04-15] MEDS: OXYBUTYNIN 10 MG TAB.ER.24 PO SCH ×2 (09:00→10:57)
[2018-04-15] MEDS ORDERED: VANCOMYCIN TROUGH DUE 1 EACH MISC MISCELLANE ONE (09:00)
[2018-04-15] MEDS: PANTOPRAZOLE 40 MG/10 ML VIAL IVP SCH (09:04)
[2018-04-15] MEDS: NICOTINE 14MG/24HR PATCH TRANSDERM SCH (09:04)
[2018-04-15] MEDS: LACTATED RINGERS 1,000 ML IV SCH ×2 (10:37→17:03)
[2018-04-15] MEDS: AMIODARONE 200 MG TAB PO SCH ×2 (10:39→20:06)
[2018-04-15] MEDS: VANCOMYCIN 1,250 MG in SODIUM CHLORIDE 0.9% 250 ML IVPB SCH (10:39)
[2018-04-15] MEDS: MORPHINE SULFATE 4 MG/ML SYRINGE IV PRN (10:57)
--- NOTE | 2018-04-15 12:06 | P.PN ---
Subjective Progress Note Date: 04/15/18 72-year-old female states anxious to go to rehab. Pain medication effective for pain control. Has been up in a chair states has been up ambulating in the saucedo tolerating a clear liquid diet with no reports the nausea vomiting. Ostomy left lower quadrant small amount of brown stool noted. White count 10.2 afebrile Surgical dressing dry April 11 left colectomy with end colostomy , takedown splenic flexure, splenectomy, partial omentectomy for obstructing left colon mass suspicious for adenocarcinoma, massively dilated right colon with serosal tears Objective - Vital Signs Vital signs: Vital Signs Temp 98.6 F 04/15/18 08:00 Pulse 95 04/15/18 08:00 Resp 20 04/15/18 08:00 BP 150/77 04/15/18 08:00 Pulse Ox 93 L 04/15/18 08:00 Intake & Output 04/14/18 04/15/18 04/15/18 18:59 06:59 18:59 Intake Total 1934 531.618 Output Total 1200 800 Balance 734 -268.382 Weight 61.2 kg 61 kg Intake: Intake, IV Titration 1934 531.618 Amount Amiodarone 450 mg In 259 241.065 Dextrose 5% in Water 250 ml @ 0.5 MG/MIN 17.26 mls /hr IV .Q15H1M SHERICE Rx#: [id number] Heparin Sod,Pork in 0.45% 290.553 NaCl 25,000 unit In 0.45 % NaCl 1 250ml.bag @ 12 UNITS/KG/HR 7.34 mls/hr IV .Q24H SHERICE Rx#: [id number] Lactated Ringers 1,000 ml 1375 @ 125 mls/hr IV .Q8H SHERICE Rx#:[id number] Piperacillin-Tazobactam 3 100 .375 gm In Sodium Chloride 0.9% 100 ml @ 25 mls/hr IVPB Q8H SHERICE Rx#: [id number] Potassium Chloride 20 meq 200 In Water For Injection 1 100ml.bag @ 50 mls/hr IVPB Q2H SHERICE Rx#: [id number] Output: Gastric Drainage 100 50 Urine 1100 750 Uretheral (Noble) 650 Other: Voiding Method Indwelling Catheter Indwelling Catheter Indwelling Catheter - Exam Physical exam 9o-year-old female sitting up in bed appears in no acute distress Lungs decreased at the bases posterior no wheezing noted no shortness of breath Heart S1-S2 audible monitor sinus rhythm Abdomen ostomy left lower quadrant moderate amount of liquid brown stool in ostomy bag surgical dressing dry slightly distended indwelling Noble catheter in place surgical tenderness appropriate not distended few hypoactive bowel tones Extremities Venodyne's on bilateral lower - Labs CBC & Chem 7: 04/15/18 05:24 04/15/18 05:24 Labs: Abnormal Lab Results - Last 24 Hours (Table) 04/15/18 04/15/18 Range/Units 05:24 05:24 RBC 3.43 L (3.80-5.40) m/uL Hgb 9.7 L (11.4-16.0) gm/dL Hct 31.8 L (34.0-46.0) % MCHC 30.4 L (31.0-37.0) g/dL Plt Count 518 H (150-450) k/uL Neutrophils # 8.0 H (1.3-7.7) k/uL Sodium 135 L (137-145) mmol/L Chloride 109 H (98-107) mmol/L Carbon Dioxide 18 L (22-30) mmol/L Creatinine 0.36 L (0.52-1.04) mg/dL Glucose 69 L (74-99) mg/dL Calcium 7.8 L (8.4-10.2) mg/dL Microbiology - Last 24 Hours (Table) 04/11/18 20:11 Blood Culture - Preliminary Blood No Growth after 72 hours 04/11/18 20:08 Blood Culture - Preliminary Blood No Growth after 72 hours 04/12/18 17:52 Blood Culture - Preliminary Blood No Growth after 48 hours Assessment and Plan Assessment: Impression Present on admission diffuse abdominal pain with bloating inability to have a bowel movement for the past 2 months suspect due to high-grade mechanical bowel obstruction at the level of the lower descending colon with 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 Present on admission intractable nausea vomiting poor oral intake suspect due to high-grade mechanical small bowel obstruction History of a screening colonoscopy 03/13/2016 report reviewed descending colon mild diverticulosis external hemorrhoids several polyps removed Present on admission poor oral intake nausea suspect constipation from the cecum Current every day smoker Hearing deficit Status post Patrick 10 left colectomy with end colostomy and takedown of splenic flexure, splenectomy partial omentectomy for massively dilated right colon with serosal tears, obstructing left colon mass suspicious for adrenocarcinoma, New-onset episode atrial fibrillation likely paroxysmal with a rapid ventricular response Hypokalemia Plan Continue recommendations by cardiology IV heparin and oral amiodarone Pain control DVT and GI prophylaxis IV antibiotic Zosyn and vancomycin as ordered Continue postop surgical care Reinforce smoking cessation information been advised to stop smoking cigarettes The above impression and plan of care have been discussed and directed by signing physician. Beth Contreras nurse practitioner acting as scribe for signing physician.
[2018-04-15] MEDS: HYDROcodone/APAP 5-325MG 1 EACH TAB PO PRN ×2 (12:38→20:06)
--- NOTE | 2018-04-15 14:36 | P.CONS ---
History of Present Illness - Reason for Consult Consult date: 04/15/18 New Diagnosis Adenocarcinoma of COlon Requesting physician: Hermelinda Edward - Chief Complaint Abdominal pain cramping. - History of Present Illness Ms Shin is a 72-year-old female who presented to the emergency department with complaints of abdominal pain, described as cramping and persistent constipation over the past few days. CT scan abdomen completed on admission revealed evidence of a high grade mechanical bowel obstruction at the level of the lower descending colon. She is very Hard of Hearing. She complains of having "bowel issues" over the past couple of months with associated nausea and occassional vomiting. When this persisted and worsened she proceeded for further evaluation at the emergency department. On April 11 she underwent a left colectomy with end colostomy, with splenectomy, partial omentectomy for obstructing left colon mass suspicious, massively dilated right colon with serosal tears. Pathology revealed consistent with adenocarcinoma. 5.5cm Tumor with invasion muscularis propria and perirectal tissue Zero of the 15 sampled lymph nodes showed evidence of metastatic cancer Grade 2 Moderately Differentiated Pathological Staging PT3, N0, MX Likely Stage IIA disease - Await CT and Molecular testing Review of Systems A 14 point review of systems assessed and completed and all negative except HPI Past Medical History Past Medical History: No Reported History History of Any Multi-Drug Resistant Organisms: None Reported Past Surgical History: Section Additional Past Surgical History / Comment(s): Cataracts Past Anesthesia/Blood Transfusion Reactions: No Reported Reaction Past Psychological History: No Psychological Hx Reported Smoking Status: Current every day smoker Past Alcohol Use History: Rare Past Drug Use History: None Reported - Past Family History Mother Family Medical History: No Reported History Medications and Allergies Home Medications Medication Instructions Recorded Confirmed Type Alendronate Sodium [Fosamax] 70 mg PO Q7D 04/10/18 04/10/18 History Oxybutynin Chloride [Ditropan XL] 10 mg PO DAILY 04/10/18 04/10/18 History Allergies Allergy/AdvReac Type Severity Reaction Status Date / Time No Known Allergies Allergy Verified 04/11/18 10:19 Physical Exam Vitals: Vital Signs Temp Pulse Pulse Resp BP BP Pulse Ox 04/15/18 12:31 80 04/15/18 12:25 100 18 136/72 94 L 04/15/18 12:19 76 04/15/18 12:00 18 04/15/18 08:00 98.6 F 95 18 150/77 93 L 04/15/18 07:38 76 04/15/18 07:24 68 04/15/18 04:00 98.3 F 91 20 160/77 95 04/15/18 00:00 98.6 F 95 18 149/77 93 L 04/14/18 20:00 98.3 F 98 18 136/74 92 L 04/14/18 15:19 84 18 132/65 96 Intake and Output 04/14/18 04/15/18 04/15/18 22:59 06:59 14:59 Intake Total 1888.135 318.483 180 Output Total 739 961 0478 Balance 1138.135 -331.517 -1620 Intake: Intake, IV Titration 1888.135 318.483 60 Amount Amiodarone 450 mg In 241.065 Dextrose 5% in Water 250 ml @ 0.5 MG/MIN 17.26 mls /hr IV .Q15H1M SHERICE Rx#: [id number] Heparin Sod,Pork in 0.45% 213.135 77.418 NaCl 25,000 unit In 0.45 % NaCl 1 250ml.bag @ 12 UNITS/KG/HR 7.34 mls/hr IV .Q24H SHERICE Rx#: [id number] Lactated Ringers 1,000 ml 1375 60 @ 60 mls/hr IV .[id number] SHERICE Rx#:[id number] Piperacillin-Tazobactam 3 100 .375 gm In Sodium Chloride 0.9% 100 ml @ 25 mls/hr IVPB Q8H SHERICE Rx#: [id number] Potassium Chloride 20 meq 200 In Water For Injection 1 100ml.bag @ 50 mls/hr IVPB Q2H SHERICE Rx#: [id number] Oral 120 Output: Gastric Drainage 100 50 Urine 280 647 3356 Uretheral (Noble) 156 923 2103 Other: Voiding Method Indwelling Catheter Indwelling Catheter Indwelling Catheter Weight 61 kg Results CBC & Chem 7: 04/17/18 05:40 04/16/18 15:00 Labs: Abnormal Lab Results - Last 24 Hours (Table) 04/15/18 04/15/18 04/15/18 Range/Units 05:24 05:24 13:19 RBC 3.43 L (3.80-5.40) m/uL Hgb 9.7 L (11.4-16.0) gm/dL Hct 31.8 L (34.0-46.0) % MCHC 30.4 L (31.0-37.0) g/dL Plt Count 518 H (150-450) k/uL Neutrophils # 8.0 H (1.3-7.7) k/uL APTT 40.0 H (22.0-30.0) sec Sodium 135 L (137-145) mmol/L Chloride 109 H (98-107) mmol/L Carbon Dioxide 18 L (22-30) mmol/L Creatinine 0.36 L (0.52-1.04) mg/dL Glucose 69 L (74-99) mg/dL Calcium 7.8 L (8.4-10.2) mg/dL Microbiology - Last 24 Hours (Table) 04/11/18 20:11 Blood Culture - Preliminary Blood No Growth after 72 hours 04/11/18 20:08 Blood Culture - Preliminary Blood No Growth after 72 hours 04/12/18 17:52 Blood Culture - Preliminary Blood No Growth after 48 hours Assessment and Plan Plan: Assessment and Recommendations: 1. New Diagnosis of Adenocarcinoma of Colon Status Post Hemicolectomy with colostomy and splenectomy - Details from Pathology - 5.5cm Tumor with invasion muscularis propria and perirectal tissue - Zero of the 15 sampled lymph nodes showed evidence of metastatic cancer - Grade 2 Moderately Differentiated - Pathological Staging PT3, N0, MX - Likely Stage IIA disease - Await CT and Molecular testing - Since presenting with obstruction on admission would be considered high risk , therefore treatment adjuvantly with 5FU/Leuc or Xeloda treatment would be offered. If further evidence of high risk features additional adjuvant therapy maybe a possibility. Await MSI, oncotype 2. Normocytic Anemia - Secondary to Malignancy with likely Iron Deficiency Component - Will Check Iron Studies and may benefit from Parental Iron Infusions - Monitor CBC daily Thank you for allowing us to participate in the care of this patient will follow along with you Marina QUINTERO
[2018-04-15] MEDS ORDERED: RX INFO: IV CONTRAST WAS GIVEN 1 EACH MISC MISCELLANE PRN (15:03)
--- NOTE | 2018-04-15 15:52 | PN ---
PROGRESS NOTE Mrs. Shin is a lady with a history of bowel surgery that was performed. She is actually doing better today. She is probably going to have the NG tube out shortly. She is maintaining sinus rhythm. I am recommending that we will switch her from IV amiodarone to oral amiodarone at 200 mg b.i.d. S1-S2 heard normally. Short systolic murmur noted. Lungs reveal improved air entry. Abdomen exam was deferred. MMODL / IJN: [id number] /
--- NOTE | 2018-04-15 16:31 | XR ---
EXAMINATION TYPE: XR chest 1V portable DATE OF EXAM: 04/15/2018 COMPARISON: Prior chest x-ray 04/14/2018 HISTORY: Shortness of breath TECHNIQUE: Single frontal view of the chest is obtained. FINDINGS: Findings are similar to prior exam. Perihilar airspace disease is present. There is blunti ng of the costophrenic angles. NG tube has been removed. Heart is likely enlarged, interstitium is in creased. IMPRESSION: Correlate for congestive heart failure with basilar effusions.
--- NOTE | 2018-04-15 16:34 | CT ---
EXAMINATION TYPE: CT chest w con DATE OF EXAM: 04/15/2018 COMPARISON: Chest x-ray same date HISTORY: Initial staging. colon CA CT DLP: 297.7 mGycm Automated exposure control for dose reduction was used. CONTRAST: CT scan of the chest is performed with IV Contrast, patient injected with 100 mL of Isovue 300. FINDINGS: There is motion on the exam which may limit evaluation. LUNGS: There is bilateral airspace disease present, pleural effusions are present at the lung bases. MEDIASTINUM: Calcified mediastinal and hilar nodes are present. Pulmonary artery is prominent, correl ate for pulmonary artery hypertension. No pericardial effusion. AORTA: No additional significant abnormality is seen. OTHER: There is some minimal ascites present about the liver.. IMPRESSION: Correlate for congestive heart failure. Bilateral pleural effusions. Pneumonia not exclu ded. Minimal ascites. There is motion on the exam. Possible underlying pulmonary artery hypertension. Follow-up as indicated.
[2018-04-15] MEDS: VANCOMYCIN 1,000 MG in SODIUM CHLORIDE 0.9% 250 ML IVPB SCH ×2 (17:05→23:15)
[2018-04-15] MEDS: HEPARIN SOD,PORK IN 0.45% NACL 25,000 UNIT in 0.45% NACL 1 250ML.BAG IV SCH (17:50)
--- NOTE | 2018-04-15 18:40 | PN ---
PROGRESS NOTE DATE OF SERVICE: 04/15/2018 This 72-year-old woman who was admitted with multiple medical problems, including acute bowel obstruction and obstructing left chronic mass. The patient also had features of sepsis. The patient is on broad-spectrum IV antibiotics. Patient also had atrial fibrillation. Patient is on amiodarone drip. The patient is on IV heparin. Reports no chest pain. No palpitations. No fever. PHYSICAL EXAMINATION: Alert and oriented x3. Pulse 100, blood pressure 136/70, respiration 18, temperature normal, pulse ox 94% on 5 L. HEENT: Conjunctivae normal. NECK: No jugular venous distention. CARDIOVASCULAR SYSTEM: S1, S2 muffled. RESPIRATORY SYSTEM: Breath sounds diminished at the bases. Bilateral scattered rhonchi and crackles. ABDOMEN: Soft, non-tender. LEGS: No edema. No swelling. NERVOUS SYSTEM: No focal deficit. LABS: WBC 10.3, hemoglobin is 9.7. Otherwise, APTT is 40. Sodium is 135. ASSESSMENT: 1. Acute bowel obstruction secondary to obstructing left colonic mass, status post colectomy and end-colostomy, takedown of splenic flexure and splenectomy with partial omentectomy. Pathology reporting as adenocarcinoma. 2. Gram-positive bacteremia with possible sepsis, on antibiotics. 3. Tachycardia and fever with possibly secondary peritonitis or sepsis. 4. Atrial fibrillation with rapid ventricular rate, new onset. 5. Leukocytosis. 6. Hard of hearing. 7. Ongoing nicotine dependence. 8. Chronic obstructive pulmonary disease. 9. History of bronchitis. RECOMMENDATIONS AND DISCUSSION: I recommend to continue current medication, continue symptomatic treatment. Continue with the bronchodilators. Continue the antibiotics. Continue with heparin. Continue the rest of the medications. Closely follow with the multiple consultants. Guarded prognosis. Further recommendations to follow. MMODL / IJN: [id number] /
[2018-04-15 19:00] LABS: Iron Saturation 7.14 (12.00-45.00)
--- NOTE | 2018-04-15 22:54 | PN ---
PROGRESS NOTE DATE OF SERVICE: 04/15/2018 REASON FOR FOLLOWUP: 1. Possible secondary peritonitis. 2. Positive blood culture. INTERVAL HISTORY: The patient is currently afebrile. Her NG has been discontinued. She was started on a clear liquid diet. The patient denies having any chest pain. No shortness of breath or cough. No nausea, no vomiting and no diarrhea. PHYSICAL EXAMINATION: Her blood pressure is 129/71 with a pulse of 98, temperature 98.1. She is 96% on 2 L nasal cannula. General description is an elderly female lying in bed in no distress. RESPIRATORY SYSTEM: Unlabored breathing. Clear to auscultation anteriorly. HEART: S1, S2. Regular rate and rhythm. ABDOMEN: Soft. No tenderness. LABS: Hemoglobin 9.7, white count of 10.2 with a BUN of 10, creatinine 0.36. DIAGNOSTIC IMPRESSION AND PLAN: 1. Patient with possible secondary peritonitis in this patient admitted to hospital with a significant bowel obstruction and serosal tear, status post laparotomy and diverting colostomy. The patient is currently on Zosyn. 2. Patient with positive blood culture with gram-positive cocci and recently treated blood culture negative. Currently on vancomycin. That will be continued while waiting for the final ID of this pathogen. Continue with supportive care. MMODL / IJN: [id number] /
[2018-04-16] MEDS: PIPERACILLIN-TAZOBACTAM 3.375 GM in SODIUM CHLORIDE 0.9% 100 ML IVPB SCH ×3 (03:07→18:11)
[2018-04-16 03:50] LABS: Basophils % (A) 0 %; Eosinophils # (A) 0.3 k/uL (0-0.7); Eosinophils % (A) 3 %; HGB 9.8 gm/dL (11.4-16.0); Hypochromasia Slight; Lymphocytes # (A) 1.3 k/uL (1.0-4.8); Lymphocytes % (A) 12 %; MCH 27.4 pg (25.0-35.0); MCHC 30.7 g/dL (31.0-37.0); MCV 89.3 fL (80.0-100.0); Mean Platelet Volume 8.1; Monocytes # (A) 0.8 k/uL (0-1.0); Monocytes % (A) 7 %; Neutrophils # (A) 8.9 k/uL (1.3-7.7); Neutrophils % (A) 77 %; Platelet Count 657 k/uL (150-450); RBC 3.58 m/uL (3.80-5.40); RDW 14.8 % (11.5-15.5); WBC 11.5 k/uL (3.8-10.6)
[2018-04-16 04:02] LABS: ALT 30 U/L (9-52); AST 25 U/L (14-36); Albumin 2.2 g/dL (3.5-5.0); Alkaline Phosphatase 65 U/L (38-126); Anion Gap 5 mmol/L; Blood Urea Nitrogen 7 mg/dL (7-17); Carbon Dioxide 28 mmol/L (22-30); Chloride 104 mmol/L (98-107); Glucose 126 mg/dL (74-99); Potassium 3.1 mmol/L (3.5-5.1); Sodium 137 mmol/L (137-145); Total Bilirubin 0.3 mg/dL (0.2-1.3); Total Protein 4.5 g/dL (6.3-8.2)
[2018-04-16] MEDS: HYDROcodone/APAP 5-325MG 1 EACH TAB PO PRN (05:03)
[2018-04-16] MEDS: PANTOPRAZOLE 40 MG TABLET PO SCH (06:37)
[2018-04-16] MEDS: IPRATROPIUM-ALBUTEROL 3 ML NEB INHALATION SCH ×3 (08:39→20:14)
[2018-04-16] MEDS: AMIODARONE 200 MG TAB PO SCH ×2 (08:59→20:34)
[2018-04-16] MEDS: POTASSIUM CHLORIDE ER 20 MEQ TAB.ER PO SCH ×2 (08:59→09:46)
[2018-04-16] MEDS: VANCOMYCIN 1,000 MG in SODIUM CHLORIDE 0.9% 250 ML IVPB SCH ×2 (08:59→16:24)
[2018-04-16] MEDS: OXYBUTYNIN 10 MG TAB.ER.24 PO SCH (08:59)
[2018-04-16] MEDS: APIXABAN 5 MG TAB PO SCH ×2 (09:46→20:34)
[2018-04-16] MEDS: METOPROLOL TARTRATE 25 MG TAB PO SCH ×2 (09:46→20:34)
[2018-04-16] MEDS: NICOTINE 14MG/24HR PATCH TRANSDERM SCH (09:46)
[2018-04-16] MEDS: LACTATED RINGERS 1,000 ML IV SCH (09:47)
--- NOTE | 2018-04-16 15:56 | P.PN ---
Subjective Progress Note Date: 04/16/18 CHIEF COMPLAINT: Colostomy creation HISTORY OF PRESENT ILLNESS: The patient is a 72-year-old female who had colostomy creation and following bowel obstruction. She is very hard of hearing. Her ostomy is working. She is tolerating full liquid diet. PHYSICAL EXAM: GENERAL: Well-developed in no acute distress. HEENT: No sclera icterus. Extraocular movements grossly intact. Moist buccal mucosa. Head is atraumatic, normocephalic. She is hard of hearing NECK: Supple without lymphadenopathy. CHEST: Non-labored respirations and equal bilateral excursions. CARDIOVASCULAR: Palpable 2+ radial pulses. ABDOMEN: Dressing intact. Colostomy function was stool and flatus. MUSCULOSKELETAL: No clubbing, cyanosis or edema. NEUROLOGIC: No focal or lateralizing signs. Cranial nerves II through XII grossly intact. PSYCH: Appropriate affect. Alert and oriented to person, place and time. SKIN: Well perfused. Good skin turgor. ASSESSMENT: 1. Status post colostomy creation for bowel obstruction PLAN: 1. Diet as tolerated 2. Continue IV fluid hydration Objective - Vital Signs Vital signs: Vital Signs Temp 98 F 04/16/18 12:00 Pulse 86 04/16/18 13:29 Resp 18 04/16/18 12:00 BP 113/73 04/16/18 12:00 Pulse Ox 98 04/16/18 12:00 Intake & Output 04/15/18 04/16/18 04/16/18 18:59 06:59 18:59 Intake Total 679.585 37.693 1050 Output Total 2700 550 900 Balance -2020.415 -512.307 150 Weight 61 kg Intake: Intake, IV Titration 469.585 37.693 810 Amount Heparin Sod,Pork in 0.45% 129.585 37.693 NaCl 25,000 unit In 0.45 % NaCl 1 250ml.bag @ 12 UNITS/KG/HR 7.34 mls/hr IV .Q24H [facility] Rx#: [id number] Lactated Ringers 1,000 ml 240 560 @ 60 mls/hr IV .[id number] [facility] Rx#:[id number] Piperacillin-Tazobactam 3 100 .375 gm In Sodium Chloride 0.9% 100 ml @ 25 mls/hr IVPB Q8H [facility] Rx#: [id number] Vancomycin 1,000 mg In 250 Sodium Chloride 0.9% 250 ml @ 125 mls/hr IVPB Q8HR [facility] Rx#:[id number] Oral 210 240 Output: Urine 2550 550 900 Uretheral ([place]) 1800 Stool 150 Other: Voiding Method Indwelling Catheter Toilet Toilet Bedpan Bedpan # Voids 1 - Labs CBC & Chem 7: 04/16/18 03:20 04/16/18 15:00 Labs: Abnormal Lab Results - Last 24 Hours (Table) 04/15/18 04/15/18 04/16/18 Range/Units 08:34 20:00 03:20 WBC 11.5 H (3.8-10.6) k/uL RBC 3.58 L (3.80-5.40) m/uL Hgb 9.8 L (11.4-16.0) gm/dL Hct 32.0 L (34.0-46.0) % MCHC 30.7 L (31.0-37.0) g/dL Plt Count 657 H (150-450) k/uL Neutrophils # 8.9 H (1.3-7.7) k/uL APTT 86.3 H (22.0-30.0) sec Potassium (3.5-5.1) mmol/L Creatinine (0.52-1.04) mg/dL Glucose (74-99) mg/dL Calcium (8.4-10.2) mg/dL Iron 13 L (50-170) ug/dL TIBC 182 L (228-460) ug/dL Iron Saturation 7.14 L (12.00-45.00) Total Protein (6.3-8.2) g/dL Albumin (3.5-5.0) g/dL 04/16/18 04/16/18 Range/Units 03:20 03:20 WBC (3.8-10.6) k/uL RBC (3.80-5.40) m/uL Hgb (11.4-16.0) gm/dL Hct (34.0-46.0) % MCHC (31.0-37.0) g/dL Plt Count (150-450) k/uL Neutrophils # (1.3-7.7) k/uL APTT 47.7 H (22.0-30.0) sec Potassium 3.1 L (3.5-5.1) mmol/L Creatinine 0.48 L (0.52-1.04) mg/dL Glucose 126 H (74-99) mg/dL Calcium 8.0 L (8.4-10.2) mg/dL Iron (50-170) ug/dL TIBC (228-460) ug/dL Iron Saturation (12.00-45.00) Total Protein 4.5 L (6.3-8.2) g/dL Albumin 2.2 L (3.5-5.0) g/dL Microbiology - Last 24 Hours (Table) 04/10/18 21:28 Blood Culture Gram Stain - Final Blood Blood Culture - Final Alpha Hemolytic Streptococcus 04/11/18 20:08 Blood Culture - Preliminary Blood No Growth after 96 hours 04/11/18 20:11 Blood Culture - Preliminary Blood No Growth after 96 hours 04/12/18 17:52 Blood Culture - Preliminary Blood No Growth after 72 hours Assessment and Plan (1) S/P colostomy Current Visit: Yes Status: Acute Code(s): Z93.3 - COLOSTOMY STATUS SNOMED Code(s): 939452825 (2) Bowel obstruction Current Visit: Yes Status: Acute Code(s): K56.609 - UNSP INTESTNL OBST, UNSP TO PARTIAL VERSUS COMPLETE OBST SNOMED Code(s): 04960025 (3) Mass of colon Current Visit: Yes Status: Acute Code(s): K63.9 - DISEASE OF INTESTINE, UNSPECIFIED SNOMED Code(s): 948500576
[2018-04-16] MEDS ORDERED: POTASSIUM CHLORIDE ER 20 MEQ TAB.ER PO SCH (16:00)
[2018-04-16] MEDS: ONDANSETRON 4 MG/2 ML VIAL IVP PRN (18:22)
--- NOTE | 2018-04-16 20:59 | PN ---
PROGRESS NOTE DATE OF SERVICE: 04/16/2018 This 72-year-old woman was admitted with acute bowel obstruction had colectomy and end- colostomy. The patient blood culture showed alpha hemolytic streptococci at this time which is poly sensitive. The patient is on apixaban and as well as Zosyn at this time. No chest pain. No palpitations. PAST MEDICAL HISTORY: Reviewed. REVIEW OF SYSTEMS: CARDIOVASCULAR: No angina or palpitations. RESPIRATION: As mentioned earlier. GI: As mentioned earlier. no dysuria. NERVOUS SYSTEM: No numbness or weakness. CURRENT MEDICATIONS ARE: Reviewed and include: 1. [place] 5 mg q.6h p.r.n. 2. DuoNeb q.i.d. and p.r.n. 3. Cordarone 200 mg p.o. b.i.d. 4. Eliquis 2.5 mg p.o. b.i.d. 5. Lidocaine spray. 6. Lactated Ringer's. 7. Lopressor 25 mg p.o. b.i.d. 8. Replacement protocols. 9. Habitrol 14 daily. 10.Zofran. 11.Ditropan XL 10 mg. 12.Protonix. 13.Zosyn. 14.Vancomycin. PHYSICAL EXAM: Patient is alert, oriented x3. Pulse 86, blood pressure 130/73, respiration 18, temperature 98 degrees, pulse ox 98% on 2 L. HEENT: Conjunctivae normal. Oral mucosa moist. Neck is no jugular venous distention. No lymph node enlargement. Cardiovascular: S1, S2. Respiratory: Breath sounds diminished in the bases. A few scattered rhonchi and crackles. ABDOMEN: Soft, nontender. Status post surgery. Legs are no edema. No swelling. Central nervous system: No focal deficits. LABS: WBC 11.2, hemoglobin is 10.8, potassium 3.1 and 3.6, albumin is 2.2. ASSESSMENT: 1. Acute bowel obstruction secondary to obstructing left colon, status post colectomy and colostomy takedown splenic flexure and splenectomy with partial omentectomy, pathology reporting adenocarcinoma. 2. Gram-positive bacteremia caused by alpha hemolytic streptococci and sepsis on antibiotics. 3. Tachycardia, fever, possibly secondary to peritonitis, sepsis. 4. Atrial fibrillation with rapid ventricular rate, new onset. 5. Leukocytosis. 6. Hard of hearing. 7. Ongoing nicotine dependence. 8. Chronic obstructive pulmonary disease. 9. History of bronchitis. RECOMMENDATIONS AND DISCUSSION: Recommend to continue current medications, management. Symptomatic treatment. Continue with bronchodilators. Continue with antibiotics. Otherwise, diet advancement per surgery. PT/OT evaluation, possible ECF rehab. Further recommendations to follow. MARSHALL / AYESHAN: [id number] /
--- NOTE | 2018-04-16 22:50 | PN ---
PROGRESS NOTE Mrs. Shin has no NG tube. She is maintaining sinus rhythm. She is doing very well at this time. Denies chest pain. Her functional capacity is good. She has been up and about. She is ambulating slowly within the room. Vital signs stable. S1-S2 heard normally. Short systolic murmur noted. Lungs reveal improved air entry. Abdomen exam deferred. Given her episode of atrial fibrillation, I am recommending that we discontinue IV heparin, place her on Eliquis 2.5 mg b.i.d., metoprolol tartrate 25 mg b.i.d. and amiodarone 200 mg b.i.d. We will increase activity. She can be discharged on this regimen whenever okay with her admitting doctor and surgeon. MARSHALL / AYESHAN: [id number] /
[2018-04-16] MEDS ORDERED: VANCOMYCIN TROUGH DUE 1 EACH MISC MISCELLANE ONE (23:00)
[2018-04-16] MEDS ORDERED: DEXAMETHASONE SOD PHOSPHATE 10 MG/ML 1 ML VIAL IV STA (23:31)
[2018-04-17] MEDS ORDERED: METOCLOPRAMIDE 5 MG/ML 2 ML VIAL IVP SCH
[2018-04-17] MEDS: VANCOMYCIN 1,000 MG in SODIUM CHLORIDE 0.9% 250 ML IVPB SCH ×3 (00:16→15:22)
[2018-04-17] MEDS: PIPERACILLIN-TAZOBACTAM 3.375 GM in SODIUM CHLORIDE 0.9% 100 ML IVPB SCH ×3 (03:07→18:45)
[2018-04-17] MEDS: LACTATED RINGERS 1,000 ML IV SCH ×3 (03:07→22:56)
[2018-04-17] MEDS: METOCLOPRAMIDE 5 MG/ML 2 ML VIAL IVP PRN ×2 (05:55→14:35)
[2018-04-17] MEDS: PANTOPRAZOLE 40 MG TABLET PO SCH (06:39)
[2018-04-17 07:06] LABS: Basophils % (A) 0 %; Eosinophils % (A) 0 %; HCT 36.1 % (34.0-46.0); HGB 11.1 gm/dL (11.4-16.0); Hypochromasia Moderate; Lymphocytes # (A) 0.5 k/uL (1.0-4.8); Lymphocytes % (A) 5 %; MCHC 30.8 g/dL (31.0-37.0); MCV 90.9 fL (80.0-100.0); Mean Platelet Volume 8.6; Monocytes # (A) 0.1 k/uL (0-1.0); Monocytes % (A) 1 %; Neutrophils # (A) 10.5 k/uL (1.3-7.7); Neutrophils % (A) 93 %; Platelet Count 732 k/uL (150-450); RBC 3.97 m/uL (3.80-5.40); RDW 15.1 % (11.5-15.5); WBC 11.2 k/uL (3.8-10.6)
[2018-04-17] MEDS: IPRATROPIUM-ALBUTEROL 3 ML NEB INHALATION SCH ×3 (08:38→19:46)
[2018-04-17] MEDS: AMIODARONE 200 MG TAB PO SCH ×2 (08:56→21:21)
[2018-04-17] MEDS: METOPROLOL TARTRATE 25 MG TAB PO SCH ×2 (08:56→21:41)
[2018-04-17] MEDS: APIXABAN 5 MG TAB PO SCH ×2 (08:57→21:41)
[2018-04-17] MEDS: NICOTINE 14MG/24HR PATCH TRANSDERM SCH (08:58)
[2018-04-17] MEDS: OXYBUTYNIN 10 MG TAB.ER.24 PO SCH (09:01)
--- NOTE | 2018-04-17 12:31 | P.PN ---
Subjective Progress Note Date: 04/17/18 CHIEF COMPLAINT: Colostomy creation HISTORY OF PRESENT ILLNESS: The patient is a 72-year-old female who had colostomy creation and following bowel obstruction. Last night she had emesis for which Reglan was prescribed. Today she is doing well. She is having a bath. Ostomy is functioning with stool and gas. No complaints this morning. PHYSICAL EXAM: GENERAL: Well-developed in no acute distress. HEENT: No sclera icterus. Extraocular movements grossly intact. Moist buccal mucosa. Head is atraumatic, normocephalic. She is hard of hearing NECK: Supple without lymphadenopathy. CHEST: Non-labored respirations and equal bilateral excursions. CARDIOVASCULAR: Palpable 2+ radial pulses. ABDOMEN: Dressing intact. Colostomy function with stool and flatus. Her cellulitis or infection. MUSCULOSKELETAL: No clubbing, cyanosis or edema. NEUROLOGIC: No focal or lateralizing signs. Cranial nerves II through XII grossly intact. PSYCH: Appropriate affect. Alert and oriented to person, place. SKIN: Well perfused. Good skin turgor. ASSESSMENT: 1. Status post colostomy creation for bowel obstruction PLAN: 1. Antiemetics as needed. 2. Continue antibiotics. Objective - Vital Signs Vital signs: Vital Signs Temp 98.2 F 04/17/18 08:00 Pulse 88 04/17/18 08:51 Resp 20 04/17/18 08:00 BP 138/80 04/17/18 08:00 Pulse Ox 96 04/17/18 08:00 Intake & Output 04/16/18 04/17/18 04/17/18 18:59 06:59 18:59 Intake Total 1050 Output Total 900 Balance 150 Weight 63.5 kg Intake: Intake, IV Titration 810 Amount Lactated Ringers 1,000 ml 560 @ 60 mls/hr IV .[id number] [facility] Rx#:[id number] Vancomycin 1,000 mg In 250 Sodium Chloride 0.9% 250 ml @ 125 mls/hr IVPB Q8HR [facility] Rx#:[id number] Oral 240 Output: Urine 900 Other: Voiding Method Toilet Toilet Bedpan Bedpan # Voids 1 - Labs CBC & Chem 7: 04/17/18 05:40 04/16/18 15:00 Labs: Abnormal Lab Results - Last 24 Hours (Table) 12/16/18 Range/Units 05:40 WBC 11.2 H (3.8-10.6) k/uL Hgb 11.1 L (11.4-16.0) gm/dL MCHC 30.8 L (31.0-37.0) g/dL Plt Count 732 H (150-450) k/uL Neutrophils # 10.5 H (1.3-7.7) k/uL Lymphocytes # 0.5 L (1.0-4.8) k/uL Microbiology - Last 24 Hours (Table) 04/11/18 20:08 Blood Culture - Preliminary Blood No Growth after 120 hours 04/11/18 20:11 Blood Culture - Preliminary Blood No Growth after 120 hours 04/12/18 17:52 Blood Culture - Preliminary Blood No Growth after 96 hours Assessment and Plan (1) S/P colostomy Current Visit: Yes Status: Acute Code(s): Z93.3 - COLOSTOMY STATUS SNOMED Code(s): 192196977 (2) Bowel obstruction Current Visit: Yes Status: Acute Code(s): K56.609 - UNSP INTESTNL OBST, UNSP TO PARTIAL VERSUS COMPLETE OBST SNOMED Code(s): 22533675 (3) Mass of colon Current Visit: Yes Status: Acute Code(s): K63.9 - DISEASE OF INTESTINE, UNSPECIFIED SNOMED Code(s): 185328959
--- NOTE | 2018-04-17 14:20 | PN ---
PROGRESS NOTE Mrs. Shin is status post bowel resection. She is in sinus rhythm. Comfortable. Denies chest pain. S1-S2 heard normally. Short systolic murmur noted. Lungs are clear. Abdomen is soft. Rest of physical examination is unchanged. Plan is to increase activity. Move her to the med surg floor with telemetry on oral amiodarone and beta blockers. MMODL / IJN: [id number] /
[2018-04-17] MEDS: ONDANSETRON 4 MG/2 ML VIAL IVP PRN (15:23)
--- NOTE | 2018-04-17 15:38 | XR ---
EXAMINATION TYPE: XR chest 1V portable DATE OF EXAM: 04/17/2018 CLINICAL HISTORY: Difficulty breathing and CHF progress study. TECHNIQUE: Single AP portable upright view of the chest is obtained. COMPARISON: Chest x-ray and CT chest from 2 days earlier FINDINGS: There is persistent cardiomegaly with atherosclerotic thoracic aorta. There are persistent prominent calcified left hilar nodules or granulomas. There is persistent dense consolidation in the left lung base. There is right basilar opacity that remains present. Upper lungs remain clear withou t pneumothorax. Osseous structures are intact. IMPRESSION: Overall stable findings, cardiomegaly with small bilateral pleural effusions and bibasi lar atelectasis and/or infiltrate all redemonstrated.
[2018-04-17] MEDS: FUROSEMIDE 10 MG/ML 4 ML VIAL IV SCH (17:42)
[2018-04-17] MEDS ORDERED: DILTIAZEM DRIP BOLUS FROM BAG 1 MG SOLN IV ONE (19:04)
[2018-04-17] MEDS ORDERED: DILTIAZEM 50 MG in SODIUM CHLORIDE 0.9% 40 ML IV SCH (19:15)
[2018-04-17] MEDS ORDERED: DEXTROSE 5% IN WATER 100 ML with AMIODARONE 150 MG IV ONE (19:50)
--- NOTE | 2018-04-17 20:20 | PN ---
PROGRESS NOTE DATE OF SERVICE: 04/17/2018 This 72-year-old woman who was admitted with acute bowel obstruction secondary to obstructing left colon had surgery. The patient is being closely monitored at this time. Patient also had bacteremia also. The patient is on broad-spectrum IV antibiotics. Patient being closely monitored at this time. Patient also complaining of shortness of breath and bad cough also. A chest x-ray was ordered by me, personally reviewed, which showed some fluid overload in the lower part at this time. The patient is on clear liquids. PAST MEDICAL HISTORY: Reviewed. REVIEW OF SYSTEMS: CARDIOVASCULAR SYSTEM: As mentioned earlier. RESPIRATORY: As mentioned earlier. GI no nausea or vomiting. no dysuria. CENTRAL NERVOUS SYSTEM: No numbness or weakness. CURRENT MEDICATIONS ARE: 1. [place] 5 mg q.6h p.r.n. 2. DuoNeb q.i.d. 3. Cordarone 200 mg b.i.d. 4. Eliquis 2.5 mg b.i.d. 5. [place] spray. 6. Lactated Ringer's. 7. Reglan. 8. Lopressor 25 mg b.i.d. 9. KCl. 10.Narcan. 11.Habitrol 14. 12.Ditropan. 13.Protonix. 14.Zosyn. 15.IV vancomycin. PHYSICAL EXAMINATION: The patient is alert and oriented times two. Pulse is 108. Blood pressure 140/63. Respirations 20. Temperature 98.5, pulse ox 92% on 2 L. HEENT: Conjunctivae normal. Oral mucosa moist. Neck is no jugular venous distention. No carotid bruit. No lymph node enlargement. Cardiovascular: S1, S2 muffled. RESPIRATORY: Breath sounds diminished in the bases. A few scattered rhonchi and crackles. ABDOMEN: Soft, no mass palpable. LEGS: Status post surgery. NERVOUS SYSTEM: No focal deficits. LAB STUDIES: WBC 11.2, hemoglobin 11.1, potassium 3.6. ASSESSMENT: 1. Acute bowel obstruction secondary to obstructing left colonic lesion, status post colectomy and colostomy takedown splenic flexure, splenectomy with partial omentectomy. Pathology report showing adenocarcinoma. 2. Gram-positive bacteremia causes alpha hemolytic streptococci and sepsis present on admission on antibiotics. 3. Tachycardia, fever, possibly secondary to pneumonia and sepsis. 4. Rule out possible congestive heart failure with fluid overload. 5. Atrial fibrillation with rapid ventricular rate, new onset. 6. Leukocytosis. 7. Hard of hearing. 8. History of ongoing nicotine dependence. 9. Chronic obstructive pulmonary disease. 10.History of bronchitis. 11.congestive heart failure with acute on chronic diastolic dysfunction. RECOMMENDATIONS AND DISCUSSION: Continue current medications, continue with monitoring, symptomatic treatment. Otherwise, at this time, I recommend to cut down the fluids and also diuretics. A 2D echo with Doppler done last week showed ejection fraction about 50-60 percent with preserved ejection fraction. Otherwise the patient had multiple valvular abnormalities. I will initiate Lasix, and also order a BNP, a set of troponins, as well. The previous EKG shows only sinus tachycardia. I will also repeat EKG as well. The prognosis guarded because of multiple complex medical issues. Further recommendations to follow. MMSHWETAL / AYESHAN: [id number] /
[2018-04-17] MEDS ORDERED: METOPROLOL TARTRATE 25 MG TAB PO STA (22:12)
[2018-04-17] MEDS: AMIODARONE 450 MG in DEXTROSE 5% IN WATER 250 ML IV SCH ×2 (22:50)
--- NOTE | 2018-04-18 | PN ---
PROGRESS NOTE DATE OF SERVICE: 04/17/2018. REASON FOR FOLLOWUP: 1. Alpha hemolytic strep bacteremia possible abdominal source. 2. Possible secondary peritonitis. INTERVAL HISTORY: The patient is afebrile. She is breathing comfortably. Denies significant chest pain. Occasional cough. No abdominal pain. Has been tolerating her clear liquid diet. No nausea, vomiting. PHYSICAL EXAMINATION: Blood pressure is 153/86, pulse of 102. Temperature 98.3. She is 94% on 2 L nasal cannula. General description is an elderly female up in the bed in no distress. Respiratory system: Unlabored breathing. Decreased breath sounds in the bases. No wheeze. Heart S1, S2. Regular rate and rhythm. Abdomen soft, no tenderness. LABS: Hemoglobin is 11.1, white count 11.2 with . Blood culture within alpha hemolytic Streptococcus. Follow up blood culture has been negative. DIAGNOSTIC IMPRESSION AND PLAN: Patient with alpha hemolytic Streptococcus bacteremia. Patient admitted to the hospital with abdominal pain, nausea and vomiting. The patient who has been diagnosed with high grade bowel obstruction status post diverting colostomy and serosal tear. The patient will continue on Zosyn. Will discontinue the vancomycin and hopefully finish therapy with oral antibiotics. Continue supportive care. MMODL / IJN: [id number] /
[2018-04-18] MEDS: PIPERACILLIN-TAZOBACTAM 3.375 GM in SODIUM CHLORIDE 0.9% 100 ML IVPB SCH ×3 (03:49→21:44)
[2018-04-18] MEDS: PANTOPRAZOLE 40 MG TABLET PO SCH (05:53)
[2018-04-18 06:14] LABS: Basophils % (A) 0 %; Eosinophils # (A) 0.1 k/uL (0-0.7); Eosinophils % (A) 0 %; HCT 31.2 % (34.0-46.0); Hypochromasia Slight; Lymphocytes # (A) 1.3 k/uL (1.0-4.8); Lymphocytes % (A) 9 %; MCH 27.4 pg (25.0-35.0); MCHC 30.9 g/dL (31.0-37.0); MCV 88.9 fL (80.0-100.0); Mean Platelet Volume 7.8; Monocytes # (A) 1.1 k/uL (0-1.0); Monocytes % (A) 8 %; Neutrophils # (A) 11.5 k/uL (1.3-7.7); Neutrophils % (A) 81 %; Platelet Count 803 k/uL (150-450); RBC 3.51 m/uL (3.80-5.40); RDW 15.2 % (11.5-15.5); WBC 14.2 k/uL (3.8-10.6)
[2018-04-18 06:15] LABS: HGB 9.6 gm/dL (11.4-16.0)
[2018-04-18 06:24] LABS: Anion Gap 4 mmol/L; Blood Urea Nitrogen 13 mg/dL (7-17); Calcium 8.3 mg/dL (8.4-10.2); Carbon Dioxide 32 mmol/L (22-30); Chloride 100 mmol/L (98-107); Glucose 106 mg/dL (74-99); Magnesium 1.7 mg/dL (1.6-2.3); Potassium 3.8 mmol/L (3.5-5.1); Sodium 136 mmol/L (137-145)
[2018-04-18] MEDS: IPRATROPIUM-ALBUTEROL 3 ML NEB INHALATION SCH ×3 (06:45→20:45)
[2018-04-18] MEDS: NICOTINE 14MG/24HR PATCH TRANSDERM SCH (08:41)
[2018-04-18] MEDS: METOPROLOL TARTRATE 25 MG TAB PO SCH ×2 (08:41→21:44)
[2018-04-18] MEDS: AMIODARONE 200 MG TAB PO SCH ×2 (08:41→21:44)
[2018-04-18] MEDS: APIXABAN 5 MG TAB PO SCH ×2 (08:41→21:44)
[2018-04-18] MEDS: FUROSEMIDE 10 MG/ML 4 ML VIAL IV SCH (08:41)
[2018-04-18] MEDS: OXYBUTYNIN 10 MG TAB.ER.24 PO SCH (08:41)
[2018-04-18] MEDS ORDERED: HYDROcodone/APAP 5-325MG 1 EACH TAB PO PRN (14:00)
--- NOTE | 2018-04-18 15:25 | P.PN ---
Subjective Progress Note Date: 04/18/18 9-year-old female seen at the bedside sitting up in bed doing crossword puzzle did note the discharge plan is in progress [facility] at this time could not accept the patient patient would like to rehab at [facility] if possible ECF is pending clarification from oncology related to the cancer treatment ECF will not accept until patient's cancer treatment program is known waiting for clarification by oncologyas to the treatment options Patient states has been up ambulating in the room tolerating a diet abdomen is soft moderate amount of liquid brown stool in the ostomy bag April 11 left colectomy with end colostomy , takedown splenic flexure, splenectomy, partial omentectomy for obstructing left colon mass suspicious for adenocarcinoma, massively dilated right colon with serosal tears - Objective - Vital Signs Vital signs: Vital Signs Temp 97.7 F 04/18/18 12:24 Pulse 75 04/18/18 12:24 Resp 18 04/18/18 12:24 BP 108/63 04/18/18 12:24 Pulse Ox 95 04/18/18 12:24 Intake & Output 04/17/18 04/18/18 04/18/18 18:59 06:59 18:59 Intake Total 1240 480 240 Output Total 700 2050 Balance 540 480 -1810 Weight 62.5 kg 62.5 kg Intake: Intake, IV Titration 890 Amount Lactated Ringers 1,000 ml 540 @ 30 mls/hr IV .Q24H [facility] Rx#:[id number] Piperacillin-Tazobactam 3 100 .375 gm In Sodium Chloride 0.9% 100 ml @ 25 mls/hr IVPB Q8H [facility] Rx#: [id number] Vancomycin 1,000 mg In 250 Sodium Chloride 0.9% 250 ml @ 125 mls/hr IVPB Q8HR [facility] Rx#:[id number] Oral 350 480 240 Output: Urine 700 1900 Stool 150 Other: Voiding Method Toilet Toilet Diaper # Voids 3 - Exam Physical exam 9o-year-old female sitting up in bed appears in no acute distress Lungs decreased at the bases posterior no wheezing noted no shortness of breath Heart S1-S2 audible monitor sinus rhythm Abdomen ostomy left lower quadrant moderate amount of liquid brown stool in ostomy bag surgical dressing dry tolerating diet Extremities Venodyne's on bilateral lower - Labs CBC & Chem 7: 04/18/18 05:52 04/18/18 05:52 Labs: Abnormal Lab Results - Last 24 Hours (Table) 04/18/18 04/18/18 Range/Units 05:52 05:52 WBC 14.2 H (3.8-10.6) k/uL RBC 3.51 L (3.80-5.40) m/uL Hgb 9.6 L D (11.4-16.0) gm/dL Hct 31.2 L (34.0-46.0) % MCHC 30.9 L (31.0-37.0) g/dL Plt Count 803 H (150-450) k/uL Neutrophils # 11.5 H (1.3-7.7) k/uL Monocytes # 1.1 H (0-1.0) k/uL Sodium 136 L (137-145) mmol/L Carbon Dioxide 32 H (22-30) mmol/L Glucose 106 H (74-99) mg/dL Calcium 8.3 L (8.4-10.2) mg/dL Microbiology - Last 24 Hours (Table) 04/11/18 20:08 Blood Culture - Final Blood No Growth after 144 hours 04/11/18 20:11 Blood Culture - Final Blood No Growth after 144 hours 04/12/18 17:52 Blood Culture - Preliminary Blood No Growth after 120 hours Assessment and Plan Assessment: Impression Present on admission diffuse abdominal pain with bloating inability to have a bowel movement for the past 2 months suspect due to high-grade mechanical bowel obstruction at the level of the lower descending colon with 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 Present on admission intractable nausea vomiting poor oral intake suspect due to high-grade mechanical small bowel obstruction History of a screening colonoscopy 03/13/2016 report reviewed descending colon mild diverticulosis external hemorrhoids several polyps removed Present on admission poor oral intake nausea suspect constipation from the cecum Current every day smoker Hearing deficit Status post April 11 left colectomy with end colostomy and takedown of splenic flexure, splenectomy partial omentectomy for massively dilated right colon with serosal tears, obstructing left colon mass suspicious for adrenocarcinoma, New-onset episode atrial fibrillation likely paroxysmal with a rapid ventricular response Hypokalemia Plan increase activity discharge plan.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 Beth Contreras nurse practitioner acting as scribe for signing physician.
--- NOTE | 2018-04-18 15:48 | P.PN ---
Subjective Progress Note Date: 04/18/18 Progress note being dictated for Dr. Kruse. 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 Maintained on IV fluid hydration and Zosyn. T-max 99.4, WBC up to 13.3. Pain controlled with epidural. Potassium 5. Patient extremely hard of hearing, continuously asking for something to drink,. NPO with NG tube present. 04/13/2018 developed atrial fibrillation with RVR. Echo reports EF 55-60% Bolused and now on amiodarone drip as well as heparin drip per cardiology. Transferred to selective care/telemetry unit. Maintained on Zosyn and vancomycin, T-max 100-currently afebrile. States abdominal pain controlled. Denies chest pain, palpitations or increased shortness of breath. 04/14/2018 maintained on amiodarone and heparin drips. Converted to sinus rhythm. Continues on IV antibiotics of Zosyn and vancomycin. Up in chair with assistance of PT. continues to assess for food and drink, NG tube to low intermittent suction. IV fluid hydration. Denies nausea or vomiting. Receiving potassium supplements for potassium at 3.4. Afebrile, leukocytosis improving. 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 Benign spleen and adipose tissue/omentum. 04/18/2018 maintained on Zosyn .afebrile. Tolerating diet, no nausea vomiting or abdominal pain. Awaiting ECF placement. Objective - Vital Signs Vital signs: Vital Signs Temp 97.7 F 04/18/18 12:24 Pulse 75 04/18/18 12:24 Resp 18 04/18/18 12:24 BP 108/63 04/18/18 12:24 Pulse Ox 95 04/18/18 12:24 Intake & Output 04/17/18 04/18/18 04/18/18 18:59 06:59 18:59 Intake Total 1240 480 240 Output Total 700 2050 Balance 540 480 -1810 Weight 62.5 kg 62.5 kg Intake: Intake, IV Titration 890 Amount Lactated Ringers 1,000 ml 540 @ 30 mls/hr IV .Q24H [facility] Rx#:[id number] Piperacillin-Tazobactam 3 100 .375 gm In Sodium Chloride 0.9% 100 ml @ 25 mls/hr IVPB Q8H [facility] Rx#: [id number] Vancomycin 1,000 mg In 250 Sodium Chloride 0.9% 250 ml @ 125 mls/hr IVPB Q8HR [facility] Rx#:[id number] Oral 350 480 240 Output: Urine 700 1900 Stool 150 Other: Voiding Method Toilet Toilet Diaper # Voids 3 - Exam PHYSICAL EXAM: VITAL SIGNS: As above GENERAL: Sitting up in bed, no acute distress, HEENT: Conjunctivae normal. eyes normal. Hard of hearing. Oral mucosa moist NECK: No JVD. No thyroid enlargement. No LNs CARDIOVASCULAR: S1, S2 muffled. No murmur. RESPIRATION: Breath sounds diminished in the bases. No rhonchi, crackles or wheezing. ABDOMEN: Soft, status post surgery . positive Bowel sounds heard. Left lower quadrant ostomy with liquid brown stool. Dressing clean dry and intact. LEGS: No edema. no swelling PSYCHIATRY: Alert and oriented -3, mood and affect normal. NERVOUS SYSTEM: Cranial N 2-12 grossly normal. Moves all 4 limbs. Diffuse weakness No focal deficits. Microbiology 04/11/18 20:08 Blood Blood Culture - Final No Growth after 144 hours 04/11/18 20:11 Blood Blood Culture - Final No Growth after 144 hours 04/12/18 17:52 Blood Blood Culture - Preliminary No Growth after 120 hours 04/10/18 21:28 Blood Blood Culture Gram Stain - Final 04/10/18 21:28 Blood Blood Culture - Final Alpha Hemolytic Streptococcus 04/10/18 21:28 Blood Blood Culture - Final 04/10/18 20:54 Urine,Voided Urine Culture - Final - Labs CBC & Chem 7: 04/18/18 05:52 04/18/18 05:52 Labs: Abnormal Lab Results - Last 24 Hours (Table) 04/18/18 04/18/18 Range/Units 05:52 05:52 WBC 14.2 H (3.8-10.6) k/uL RBC 3.51 L (3.80-5.40) m/uL Hgb 9.6 L D (11.4-16.0) gm/dL Hct 31.2 L (34.0-46.0) % MCHC 30.9 L (31.0-37.0) g/dL Plt Count 803 H (150-450) k/uL Neutrophils # 11.5 H (1.3-7.7) k/uL Monocytes # 1.1 H (0-1.0) k/uL Sodium 136 L (137-145) mmol/L Carbon Dioxide 32 H (22-30) mmol/L Glucose 106 H (74-99) mg/dL Calcium 8.3 L (8.4-10.2) mg/dL Microbiology - Last 24 Hours (Table) 04/11/18 20:08 Blood Culture - Final Blood No Growth after 144 hours 04/11/18 20:11 Blood Culture - Final Blood No Growth after 144 hours 04/12/18 17:52 Blood Culture - Preliminary Blood No Growth after 120 hours Assessment and Plan Assessment: -Acute bowel obstruction with obstructing mass left colonic mass, status post left colectomy with end colostomy, takedown splenic flexure and splenectomy and partial omentectomy. Pathology reporting adenocarcinoma. -Alpha hemolytic Streptococcus bacteremia, suspected abdominal source, possibly peritonitis -Possible sepsis secondary to the above -Atrial fibrillation with RVR, new onset -Leukocytosis -Hard of hearing -Ongoing nicotine dependence -COPD -Bronchitis- -acute on chronic CHF, diastolic dysfunction Plan: Continue on current medication regime ,monitoring and symptomatic treatment. Continue on diuretics, close monitoring of renal function, electrolyte with repeat labs ordered for a.m. Increase Ambulation as tolerated , aggressive pulmonary toileting. Smoking cessation readdressed. Discharge / ECF placement in progress. Antibiotics as per infectious disease. Prognosis guarded, given multiple complex medical issues. The impression and plan of care has been dictated as directed. : I performed a history and examination of this patient, discussed the same with the dictator. I agree with the dictator's note ,documented as a scribe. Any additional findings or plans will be noted.
[2018-04-18] MEDS: AMIODARONE 450 MG in DEXTROSE 5% IN WATER 250 ML IV SCH ×2 (16:12)
--- NOTE | 2018-04-18 20:34 | PN ---
PROGRESS NOTE HISTORY: Ms. Shin is in sinus rhythm today. She is in and out of atrial fib. She is on amiodarone, beta blockers and apixaban. PHYSICAL EXAM: S1 and S2 heard normally. Lungs reveal improved air entry. Abdomen exam deferred. The rest of the physical examination is unchanged. ASSESSMENT AND PLAN: Patient had bowel resection and colostomy. She is in paroxysmal atrial fibrillation, maintaining sinus rhythm. Same medical regiment and can be sent to an extended care facility. MMODL / IJN: [id number] /
--- NOTE | 2018-04-18 22:10 | PN ---
PROGRESS NOTE DATE OF SERVICE: 04/18/2018. REASON FOR FOLLOWUP: 1. Secondary peritonitis. 2. Positive blood culture. INTERVAL HISTORY: The patient is afebrile. She has been breathing comfortably. Denies having chest pain, some cough. No abdominal pain. No nausea, vomiting or diarrhea. PHYSICAL EXAMINATION: Her blood pressure is 97/67 with a pulse of 76, temperature 97.8. She is 95% on 2 L nasal cannula. General description is an elderly female lying in bed in no distress. Respiratory system: Unlabored breathing. Clear to auscultation anteriorly. Heart S1, S2. Regular rate and rhythm. ABDOMEN: Soft, no tenderness. LABS: Hemoglobin 9.3, white count 14.2 with a BUN of 13, creatinine 0.57. DIAGNOSTIC IMPRESSION AND PLAN: Patient with possible secondary peritonitis. Patient with significant colon obstruction with mucosal tears with Strep bacteremia currently covered with Zosyn, we will finish therapy with oral Augmentin, slight jump in white count, component of thrush. We will add nystatin swish and swallow. Continue supportive care. MMODL / IJN: [id number] /
[2018-04-18] MEDS: NYSTATIN 100,000 UNIT/ML SUSP 500,000 UNIT/5 ML CUP PO SCH (23:50)
[2018-04-19] MEDS: PIPERACILLIN-TAZOBACTAM 3.375 GM in SODIUM CHLORIDE 0.9% 100 ML IVPB SCH ×3 (03:27→19:05)
[2018-04-19] MEDS: PANTOPRAZOLE 40 MG TABLET PO SCH (06:12)
[2018-04-19 06:33] LABS: Basophils % (A) 0 %; Eosinophils # (A) 0.1 k/uL (0-0.7); Eosinophils % (A) 1 %; HCT 29.7 % (34.0-46.0); HGB 9.2 gm/dL (11.4-16.0); Hypochromasia Slight; Lymphocytes # (A) 1.4 k/uL (1.0-4.8); Lymphocytes % (A) 12 %; MCH 27.4 pg (25.0-35.0); MCV 88.2 fL (80.0-100.0); Mean Platelet Volume 7.7; Monocytes # (A) 0.8 k/uL (0-1.0); Monocytes % (A) 7 %; Neutrophils # (A) 9.1 k/uL (1.3-7.7); Neutrophils % (A) 78 %; Platelet Count 852 k/uL (150-450); RBC 3.37 m/uL (3.80-5.40); RDW 15.3 % (11.5-15.5); WBC 11.7 k/uL (3.8-10.6)
[2018-04-19 06:49] LABS: Anion Gap 3 mmol/L; Blood Urea Nitrogen 14 mg/dL (7-17); Calcium 8.3 mg/dL (8.4-10.2); Carbon Dioxide 32 mmol/L (22-30); Chloride 98 mmol/L (98-107); Glucose 90 mg/dL (74-99); Potassium 3.7 mmol/L (3.5-5.1); Sodium 133 mmol/L (137-145)
[2018-04-19] MEDS: FUROSEMIDE 10 MG/ML 4 ML VIAL IV SCH (08:53)
[2018-04-19] MEDS: APIXABAN 5 MG TAB PO SCH ×2 (08:53→21:17)
[2018-04-19] MEDS: METOPROLOL TARTRATE 25 MG TAB PO SCH ×2 (08:53→21:17)
[2018-04-19] MEDS: NICOTINE 14MG/24HR PATCH TRANSDERM SCH (08:53)
[2018-04-19] MEDS: NYSTATIN 100,000 UNIT/ML SUSP 500,000 UNIT/5 ML CUP PO SCH ×4 (08:53→21:17)
[2018-04-19] MEDS: AMIODARONE 200 MG TAB PO SCH ×2 (08:53→21:17)
[2018-04-19] MEDS: OXYBUTYNIN 10 MG TAB.ER.24 PO SCH (08:54)
[2018-04-19] MEDS: IPRATROPIUM-ALBUTEROL 3 ML NEB INHALATION SCH ×3 (09:10→19:33)
--- NOTE | 2018-04-19 17:18 | P.PN ---
Subjective Progress Note Date: 04/19/18 Principal diagnosis: Adenocarcinoma of colon No acute events overnight. Planning on rehab at discharge Objective - Vital Signs Vital signs: Vital Signs Temp 99 F 04/19/18 16:00 Pulse 76 04/19/18 16:00 Resp 20 04/19/18 16:00 BP 97/54 04/19/18 16:00 Pulse Ox 94 L 04/19/18 16:00 Intake & Output 04/18/18 04/19/18 04/19/18 18:59 06:59 18:59 Intake Total 240 480 580 Output Total 2050 300 Balance -1810 480 280 Weight 62.5 kg 62.3 kg Intake: Intake, IV Titration 100 Amount Piperacillin-Tazobactam 3 100 .375 gm In Sodium Chloride 0.9% 100 ml @ 25 mls/hr IVPB Q8H [facility] Rx#: [id number] Oral 240 480 480 Output: Urine 1900 200 Stool 150 100 Other: Voiding Method Toilet Toilet # Voids 1 1 0 - Exam Very Hard of hearing Inappropriate responses to questions, will require remediation NAD Head: NC/NT Neck Supple, no lymphadenopathy Lung: Rhonchi, DIminiahsed Bases, No increased effort Heart: RRR Abdomen: Ostomy, recent surgery evidence CDI Ext: No edema - Labs CBC & Chem 7: 04/19/18 05:50 04/19/18 05:50 Labs: Abnormal Lab Results - Last 24 Hours (Table) 04/19/18 04/19/18 Range/Units 05:50 05:50 WBC 11.7 H (3.8-10.6) k/uL RBC 3.37 L (3.80-5.40) m/uL Hgb 9.2 L (11.4-16.0) gm/dL Hct 29.7 L (34.0-46.0) % Plt Count 852 H (150-450) k/uL Neutrophils # 9.1 H (1.3-7.7) k/uL Sodium 133 L (137-145) mmol/L Carbon Dioxide 32 H (22-30) mmol/L Calcium 8.3 L (8.4-10.2) mg/dL Microbiology - Last 24 Hours (Table) 04/12/18 17:52 Blood Culture - Final Blood No Growth after 144 hours Assessment and Plan Plan: Assessment and Recommendations: 1. New Diagnosis of Adenocarcinoma of Colon Status Post Hemicolectomy with colostomy and splenectomy - Details from Pathology - 5.5cm Tumor with invasion muscularis propria and perirectal tissue - Zero of the 15 sampled lymph nodes showed evidence of metastatic cancer - Grade 2 Moderately Differentiated - Pathological Staging PT3, N0, MX - Likely Stage IIA disease - Await CT and Molecular testing - Since presenting with obstruction on admission would be considered high risk , therefore treatment adjuvantly with 5FU/Leuc or Xeloda treatment would be offered. If further evidence of high risk features additional adjuvant therapy maybe a possibility. Await MSI, oncotype 2. Normocytic Anemia - Secondary to Malignancy with likely Iron Deficiency Component - Will Check Iron Studies and may benefit from Parental Iron Infusions - Monitor CBC daily We will plan treatment as outpatient during follow-up after patient completes rehabilitation after this intiial hospitalizatiton. Adjuvant options would not be indicated for minimum of 4 weeks postoperatively and performance score will need to improve before these options can be given Thank you for allowing us to participate in the care of this patient will follow along with you Marina QUINTERO
--- NOTE | 2018-04-19 17:50 | PN ---
PROGRESS NOTE This is a lady who had a bowel resection, had paroxysmal atrial fibrillation, but this morning she is comfortable resting, planning to go to a residential for rehab-type situation. She is comfortable resting, hemodynamically stable, maintaining sinus rhythm. S1-S2 heard normally. Short systolic murmur noted. Lungs reveal improved air entry. Abdomen is soft. Rest of physical examination unchanged. Patient can be discharged on current medications. Her Eliquis, which is at 2.5 b.i.d., can be increased to 5 b.i.d. after another one week or so. I explained this to the patient and nurse, and she can be discharged today. MMODL / IJN: [id number] /
--- NOTE | 2018-04-19 18:08 | P.PN ---
Progress Note - Text Progress Note Date: 04/19/18 the patient is lying comfortbed. She is tolerating a diet. She has had some output tholostomy. On exam her vital signs are stable. Abdomen is soft. Incision site is clean ddry and intact. Status post colectomy with end colostomy for obstructing colon cance Patient will be discharge to rehabilitation soon.
[2018-04-19] MEDS: LACTATED RINGERS 1,000 ML IV SCH (21:09)
--- NOTE | 2018-04-19 23:53 | PN ---
PROGRESS NOTE DATE OF SERVICE: 04/19/2018. REASON FOR FOLLOWUP: Possible secondary peritonitis, oral thrush. INTERVAL HISTORY: The patient is afebrile. She is breathing comfortably. Denies having any chest pain. Did have some cough. No nausea, vomiting, abdominal pain, or any diarrhea. PHYSICAL EXAMINATION: Blood pressure is 97/54 with a pulse of 73, temperature 97.9, she is 94% 2 L nasal cannula. GENERAL DESCRIPTION: An elderly female lying in bed in no distress. RESPIRATORY SYSTEM: Unlabored breathing. Some coarse breath sounds in the bases. No wheeze. HEART: S1, S2. Regular rate and rhythm. ABDOMEN: No tenderness. No guarding or rigidity. Wound is currently dressed up. LABS: Hemoglobin 9.2, white count 11.7, BUN of 14, creatinine 0.63. DIAGNOSTIC IMPRESSION AND PLAN: Patient with possible secondary peritonitis. The patient is admitted to the hospital with bowel obstruction with mucosal tear, status post diverting colostomy. Patient, at this time, is on Zosyn. She will be transitioned to oral Augmentin and continue nystatin swish and swallow. White count showing downward trend. Continue supportive care. MMODL / IJN: [id number] /
[2018-04-20] MEDS: PIPERACILLIN-TAZOBACTAM 3.375 GM in SODIUM CHLORIDE 0.9% 100 ML IVPB SCH ×3 (03:30→18:20)
[2018-04-20] MEDS: IPRATROPIUM-ALBUTEROL 3 ML NEB INHALATION SCH ×3 (07:16→19:16)
[2018-04-20] MEDS: METOPROLOL TARTRATE 25 MG TAB PO SCH ×2 (09:13→22:19)
[2018-04-20] MEDS: AMIODARONE 200 MG TAB PO SCH ×2 (09:13→22:20)
[2018-04-20] MEDS: APIXABAN 5 MG TAB PO SCH ×2 (09:13→22:19)
[2018-04-20] MEDS: NYSTATIN 100,000 UNIT/ML SUSP 500,000 UNIT/5 ML CUP PO SCH ×4 (09:13→22:19)
[2018-04-20] MEDS: OXYBUTYNIN 10 MG TAB.ER.24 PO SCH (09:13)
[2018-04-20] MEDS: PANTOPRAZOLE 40 MG TABLET PO SCH (09:13)
[2018-04-20] MEDS: FUROSEMIDE 10 MG/ML 4 ML VIAL IV SCH (09:13)
[2018-04-20 09:49] LABS: Basophils % (A) 0 %; Eosinophils # (A) 0.2 k/uL (0-0.7); Eosinophils % (A) 1 %; HCT 29.8 % (34.0-46.0); HGB 9.3 gm/dL (11.4-16.0); Hypochromasia Slight; Lymphocytes # (A) 1.5 k/uL (1.0-4.8); Lymphocytes % (A) 13 %; MCH 27.4 pg (25.0-35.0); MCHC 31.4 g/dL (31.0-37.0); MCV 87.4 fL (80.0-100.0); Mean Platelet Volume 7.7; Monocytes # (A) 0.6 k/uL (0-1.0); Monocytes % (A) 5 %; Neutrophils # (A) 9.1 k/uL (1.3-7.7); Neutrophils % (A) 79 %; Platelet Count 943 k/uL (150-450); RBC 3.41 m/uL (3.80-5.40); RDW 15.3 % (11.5-15.5); WBC 11.6 k/uL (3.8-10.6)
[2018-04-20 10:00] LABS: Anion Gap 4 mmol/L; Blood Urea Nitrogen 11 mg/dL (7-17); Calcium 8.5 mg/dL (8.4-10.2); Carbon Dioxide 31 mmol/L (22-30); Chloride 99 mmol/L (98-107); Glucose 116 mg/dL (74-99); Potassium 3.5 mmol/L (3.5-5.1); Sodium 134 mmol/L (137-145)
[2018-04-20] MEDS: NICOTINE 14MG/24HR PATCH TRANSDERM SCH (12:44)
--- NOTE | 2018-04-20 16:46 | P.PN ---
Progress Note - Text Progress Note Date: 04/20/18 Patient's sleeping comfortably in her bed. She denies any significant pain. She is tolerating her diet. On exam her vital signs are stable. Her abdomen is soft. Colostomy dysfunction. Status post colectomy for colonic obstruction secondary to her. Patient will E stable for discharge to [facility] in the a.m.
[2018-04-20] MEDS: LACTATED RINGERS 1,000 ML IV SCH (18:20)
--- NOTE | 2018-04-20 20:54 | PN ---
PROGRESS NOTE DATE OF SERVICE: 04/20/2018. REASON FOR FOLLOWUP: 1. Possible secondary peritonitis. 2. Oral thrush. INTERVAL HISTORY: The patient is afebrile. She is breathing comfortably. Denies having any chest pain or shortness of breath or cough. No abdominal pain. No diarrhea. Currently waiting for placement. EXAMINATION: Blood pressure 100/60 with a pulse of 81, temperature 99.1. She is 91% on room air. General description is an elderly female up in the bed in no distress. Respiratory system: Unlabored breathing. Clear to auscultation anteriorly. Heart S1, S2. Regular rate and rhythm. Abdomen soft, no tenderness. EXTREMITIES: No edema of the feet. LABS: Hemoglobin 9.8, white count 11.6, BUN of 11, creatinine 0.69. DIAGNOSTIC IMPRESSION AND PLAN: 1. Patient with secondary peritonitis admitted to the Hospital with bowel obstruction with mucosal tear, status post diverting colostomy. The patient at this time Zosyn that will be transitioned to oral Augmentin for a short course on discharge. 2. Oral thrush. Nystatin swish and swallow to continue for about a week. Continue supportive care. MMODL / IJN: [id number] /
--- NOTE | 2018-04-21 02:12 | P.PN ---
Subjective Progress Note Date: 04/19/18 Progress note being dictated for Dr. Kruse. 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 Maintained on IV fluid hydration and Zosyn. T-max 99.4, WBC up to 13.3. Pain controlled with epidural. Potassium 5. Patient extremely hard of hearing, continuously asking for something to drink,. NPO with NG tube present. 04/13/2018 developed atrial fibrillation with RVR. Echo reports EF 55-60% Bolused and now on amiodarone drip as well as heparin drip per cardiology. Transferred to selective care/telemetry unit. Maintained on Zosyn and vancomycin, T-max 100-currently afebrile. States abdominal pain controlled. Denies chest pain, palpitations or increased shortness of breath. 04/14/2018 maintained on amiodarone and heparin drips. Converted to sinus rhythm. Continues on IV antibiotics of Zosyn and vancomycin. Up in chair with assistance of PT. continues to assess for food and drink, NG tube to low intermittent suction. IV fluid hydration. Denies nausea or vomiting. Receiving potassium supplements for potassium at 3.4. Afebrile, leukocytosis improving. 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 Benign spleen and adipose tissue/omentum. 04/18/2018 maintained on Zosyn .afebrile. Tolerating diet, no nausea vomiting or abdominal pain. Awaiting ECF placement. 04/19/2018 pain controlled. Evaluated by oncology with recommendations of following up outpatient after rehab. completed. Continues on IV antibiotics of Zosyn as per ID. Thrush improving with nystatin swish and swallow. Afebrile. Occasional nonproductive cough. Diet intake improving, denies nausea ,vomiting , diarrhea or abdominal pain. Objective - Vital Signs Vital signs: Vital Signs Temp 99 F 04/19/18 16:00 Pulse 76 04/19/18 16:00 Resp 20 04/19/18 16:00 BP 97/54 04/19/18 16:00 Pulse Ox 94 L 04/19/18 16:00 Intake & Output 04/18/18 04/19/18 04/19/18 18:59 06:59 18:59 Intake Total 240 480 580 Output Total 2050 300 Balance -1810 480 280 Weight 62.5 kg 62.3 kg Intake: Intake, IV Titration 100 Amount Piperacillin-Tazobactam 3 100 .375 gm In Sodium Chloride 0.9% 100 ml @ 25 mls/hr IVPB Q8H [facility] Rx#: [id number] Oral 240 480 480 Output: Urine 1900 200 Stool 150 100 Other: Voiding Method Toilet Toilet # Voids 1 1 0 - Exam PHYSICAL EXAM: VITAL SIGNS: As above GENERAL: Sitting up in bed, no acute distress, HEENT: Conjunctivae normal. eyes normal. Hard of hearing. Oral mucosa moist NECK: No JVD. No thyroid enlargement. No LNs CARDIOVASCULAR: S1, S2 muffled. No murmur. RESPIRATION: Respiratory effort unlabored .Breath sounds diminished in the bases. No rhonchi, crackles or wheezing. ABDOMEN: Soft, status post surgery . positive bowel sounds. Left lower quadrant ostomy with liquid brown stool. Dressing clean dry and intact. LEGS: No edema. no swelling PSYCHIATRY: Alert and oriented -3, mood and affect normal. NERVOUS SYSTEM: Cranial N 2-12 grossly normal. Moves all 4 limbs. Diffuse weakness No focal deficits. Microbiology 04/11/18 20:08 Blood Blood Culture - Final No Growth after 144 hours 04/11/18 20:11 Blood Blood Culture - Final No Growth after 144 hours 04/12/18 17:52 Blood Blood Culture - Preliminary No Growth after 120 hours 04/10/18 21:28 Blood Blood Culture Gram Stain - Final 04/10/18 21:28 Blood Blood Culture - Final Alpha Hemolytic Streptococcus 04/10/18 21:28 Blood Blood Culture - Final 04/10/18 20:54 Urine,Voided Urine Culture - Final - Labs CBC & Chem 7: 04/20/18 09:14 04/20/18 09:14 Labs: Abnormal Lab Results - Last 24 Hours (Table) 04/19/18 04/19/18 Range/Units 05:50 05:50 WBC 11.7 H (3.8-10.6) k/uL RBC 3.37 L (3.80-5.40) m/uL Hgb 9.2 L (11.4-16.0) gm/dL Hct 29.7 L (34.0-46.0) % Plt Count 852 H (150-450) k/uL Neutrophils # 9.1 H (1.3-7.7) k/uL Sodium 133 L (137-145) mmol/L Carbon Dioxide 32 H (22-30) mmol/L Calcium 8.3 L (8.4-10.2) mg/dL Microbiology - Last 24 Hours (Table) 04/12/18 17:52 Blood Culture - Final Blood No Growth after 144 hours Assessment and Plan Assessment: -Acute bowel obstruction with obstructing mass left colonic mass, status post left colectomy with end colostomy, takedown splenic flexure and splenectomy and partial omentectomy. Pathology reporting adenocarcinoma. -Alpha hemolytic Streptococcus bacteremia, suspected abdominal source, possibly peritonitis -Possible sepsis secondary to the above -Atrial fibrillation with RVR, new onset -Leukocytosis -Hard of hearing -Ongoing nicotine dependence -COPD -Bronchitis- -acute on chronic CHF, diastolic dysfunction Plan: Continue on current medication regime ,monitoring and symptomatic treatment. Discharge planning in progress for subacute rehab in a.m. as per surgery.Aggressive pulmonary toileting. Continue on diuretics, close monitoring of electrolyte swith repeat labs ordered for a.m. Increase Ambulation as tolerated. Smoking cessation readdressed. Discharge Antibiotics as per infectious disease. Prognosis guarded, given multiple complex medical issues. The impression and plan of care has been dictated as directed. : I performed a history and examination of this patient, discussed the same with the dictator. I agree with the dictator's note ,documented as a scribe. Any additional findings or plans will be noted.
--- NOTE | 2018-04-21 02:19 | P.PN ---
Subjective Progress Note Date: 04/20/18 Progress note being dictated for Dr. Kruse. 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 Maintained on IV fluid hydration and Zosyn. T-max 99.4, WBC up to 13.3. Pain controlled with epidural. Potassium 5. Patient extremely hard of hearing, continuously asking for something to drink,. NPO with NG tube present. 04/13/2018 developed atrial fibrillation with RVR. Echo reports EF 55-60% Bolused and now on amiodarone drip as well as heparin drip per cardiology. Transferred to selective care/telemetry unit. Maintained on Zosyn and vancomycin, T-max 100-currently afebrile. States abdominal pain controlled. Denies chest pain, palpitations or increased shortness of breath. 04/14/2018 maintained on amiodarone and heparin drips. Converted to sinus rhythm. Continues on IV antibiotics of Zosyn and vancomycin. Up in chair with assistance of PT. continues to assess for food and drink, NG tube to low intermittent suction. IV fluid hydration. Denies nausea or vomiting. Receiving potassium supplements for potassium at 3.4. Afebrile, leukocytosis improving. 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 Benign spleen and adipose tissue/omentum. 04/18/2018 maintained on Zosyn .afebrile. Tolerating diet, no nausea vomiting or abdominal pain. Awaiting ECF placement. 04/19/2018 pain controlled. Evaluated by oncology with recommendations of following up outpatient after rehab. completed. Continues on IV antibiotics of Zosyn as per ID. Thrush improving with nystatin swish and swallow. Afebrile. Occasional nonproductive cough. Diet intake improving, denies nausea ,vomiting , diarrhea or abdominal pain. 04/20/18 continues to improve. Ambulating with assistance in room, tolerating exertion well. Denies abdominal pain. Reports eager to start rehab. Good diet intake with no nausea vomiting or diarrhea. T-max 99.1. Objective - Vital Signs Vital signs: Vital Signs Temp 98.7 F 04/20/18 06:00 Pulse 74 04/20/18 11:28 Resp 20 04/20/18 06:00 BP 122/69 04/20/18 06:00 Pulse Ox 92 L 04/20/18 06:00 Intake & Output 04/19/18 04/20/18 04/20/18 18:59 06:59 18:59 Intake Total 820 100 480 Output Total 300 Balance 520 100 480 Intake: Intake, IV Titration 100 Amount Piperacillin-Tazobactam 3 100 .375 gm In Sodium Chloride 0.9% 100 ml @ 25 mls/hr IVPB Q8H [facility] Rx#: [id number] Oral 720 100 480 Output: Urine 200 Stool 100 Other: # Voids 3 1 1 - Exam PHYSICAL EXAM: VITAL SIGNS: As above GENERAL: Sitting up in chair, no acute distress, HEENT: Conjunctivae normal. eyes normal. Hard of hearing. Oral mucosa moist NECK: No JVD. No thyroid enlargement. No LNs CARDIOVASCULAR: S1, S2 muffled. No murmur. RESPIRATION: Respiratory effort unlabored .Breath sounds diminished in the bases. No rhonchi, crackles or wheezing. ABDOMEN: Soft, status post surgery . positive bowel sounds. Left lower quadrant ostomy with liquid brown stool. LEGS: No edema. no swelling PSYCHIATRY: Alert and oriented -3, mood and affect normal. NERVOUS SYSTEM: Cranial N 2-12 grossly normal. Moves all 4 limbs. Diffuse weakness No focal deficits. - Labs CBC & Chem 7: 04/20/18 09:14 04/20/18 09:14 Labs: Abnormal Lab Results - Last 24 Hours (Table) 04/20/18 04/20/18 Range/Units 09:14 09:14 WBC 11.6 H (3.8-10.6) k/uL RBC 3.41 L (3.80-5.40) m/uL Hgb 9.3 L (11.4-16.0) gm/dL Hct 29.8 L (34.0-46.0) % Plt Count 943 H (150-450) k/uL Neutrophils # 9.1 H (1.3-7.7) k/uL Sodium 134 L (137-145) mmol/L Carbon Dioxide 31 H (22-30) mmol/L Glucose 116 H (74-99) mg/dL Assessment and Plan Assessment: -Acute bowel obstruction with obstructing mass left colonic mass, status post left colectomy with end colostomy, takedown splenic flexure and splenectomy and partial omentectomy. Pathology reporting adenocarcinoma. -Alpha hemolytic Streptococcus bacteremia, suspected abdominal source, possibly peritonitis -Possible sepsis secondary to the above -Atrial fibrillation with RVR, new onset -Leukocytosis -Hard of hearing -Ongoing nicotine dependence -COPD -Bronchitis- -acute on chronic CHF, diastolic dysfunction Plan: Continue on current medication regime ,monitoring and symptomatic treatment. Discharge planning in progress for subacute rehab in a.m. as per surgery. Increase Ambulation as tolerated, aggressive pulmonary toileting. Smoking cessation readdressed. Antibiotics as per infectious disease. Prognosis guarded, given multiple complex medical issues. The impression and plan of care has been dictated as directed. : I performed a history and examination of this patient, discussed the same with the dictator. I agree with the dictator's note ,documented as a scribe. Any additional findings or plans will be noted.
[2018-04-21] MEDS: PIPERACILLIN-TAZOBACTAM 3.375 GM in SODIUM CHLORIDE 0.9% 100 ML IVPB SCH ×2 (03:37→10:13)
[2018-04-21] MEDS: IPRATROPIUM-ALBUTEROL 3 ML NEB INHALATION SCH ×3 (07:52→19:40)
[2018-04-21] MEDS: NYSTATIN 100,000 UNIT/ML SUSP 500,000 UNIT/5 ML CUP PO SCH ×4 (07:55→20:32)
[2018-04-21] MEDS: METOPROLOL TARTRATE 25 MG TAB PO SCH ×2 (07:55→20:20)
[2018-04-21] MEDS: PANTOPRAZOLE 40 MG TABLET PO SCH (07:55)
[2018-04-21] MEDS: APIXABAN 5 MG TAB PO SCH ×2 (07:56→20:19)
[2018-04-21] MEDS: FUROSEMIDE 10 MG/ML 4 ML VIAL IV SCH (07:56)
[2018-04-21] MEDS: AMIODARONE 200 MG TAB PO SCH ×2 (07:57→20:19)
[2018-04-21] MEDS: NICOTINE 14MG/24HR PATCH TRANSDERM SCH (07:57)
[2018-04-21] MEDS: OXYBUTYNIN 10 MG TAB.ER.24 PO SCH (07:57)
[2018-04-21 09:37] LABS: Basophils % (A) 0 %; Eosinophils # (A) 0.2 k/uL (0-0.7); Eosinophils % (A) 2 %; HCT 32.5 % (34.0-46.0); Hypochromasia Slight; Lymphocytes # (A) 2.4 k/uL (1.0-4.8); Lymphocytes % (A) 15 %; MCHC 30.8 g/dL (31.0-37.0); MCV 87.7 fL (80.0-100.0); Mean Platelet Volume 7.6; Monocytes # (A) 0.6 k/uL (0-1.0); Monocytes % (A) 4 %; Neutrophils # (A) 12.7 k/uL (1.3-7.7); Neutrophils % (A) 78 %; RDW 15.4 % (11.5-15.5); WBC 16.3 k/uL (3.8-10.6)
[2018-04-21 09:41] LABS: Anion Gap 7 mmol/L; Blood Urea Nitrogen 8 mg/dL (7-17); Calcium 8.7 mg/dL (8.4-10.2); Carbon Dioxide 31 mmol/L (22-30); Chloride 98 mmol/L (98-107); Glucose 103 mg/dL (74-99); Platelet Count 1096 k/uL (150-450); Potassium 3.5 mmol/L (3.5-5.1); Sodium 136 mmol/L (137-145)
[2018-04-21 10:21] LABS: Large Platelets Present; Polychromasia Present
[2018-04-21 10:22] LABS: Toxic Granulation Present
--- NOTE | 2018-04-21 14:00 | P.PN ---
Progress Note - Text Progress Note Date: 04/21/18 The patient feels well. However her white count climbed up from yesterday. On exam her vital signs are stable. Her abdomen soft. Patient liver cc repeat in the a.m. She'll continue IV antibiotics.. Anticipate discharged to ECF soon.
[2018-04-21] MEDS ORDERED: VANCOMYCIN IV PER PHARMACY 1 EACH MISC MISCELLANE PRN (16:18)
[2018-04-21] MEDS ORDERED: VANCOMYCIN 1,500 MG in SODIUM CHLORIDE 0.9% 250 ML IVPB ONE (17:00)
--- NOTE | 2018-04-21 17:07 | PN ---
PROGRESS NOTE DATE OF SERVICE: 04/21/2018 REASON FOR FOLLOWUP: 1. Possible secondary peritonitis. 2. Leukocytosis. INTERVAL HISTORY: The patient is currently afebrile. She is breathing comfortably. Denies having any chest pain or shortness of breath or cough. No worsening abdominal pain. No nausea, vomiting or any diarrhea. PHYSICAL EXAMINATION: Blood pressure 101/65, pulse of 78, temperature 97.3. She is 92% on room air. General description is an elderly female up in the chair in no distress. RESPIRATORY SYSTEM: Unlabored breathing. Clear to auscultation anteriorly. HEART: S1, S2. Regular rate and rhythm. ABDOMEN: Soft. Incision with minimal erythema. No drainage, though. LABS: Hemoglobin is 10, white count 16.3 with a BUN of 8, creatinine 0.74. DIAGNOSTIC IMPRESSION AND PLAN: 1. Patient with possible secondary peritonitis with mucosal tear and large bowel obstruction, status post diverting colostomy. Blood culture has been negative. White count has shown an upward trend with minimal irritation at the incision. We will add vancomycin and discontinue the Zosyn. 2. Oral thrush. To continue with nystatin swish and swallow. MMODL / IJN: [id number] /
--- NOTE | 2018-04-21 17:59 | P.PN ---
Subjective Progress Note Date: 04/21/18 Progress note being dictated for Dr. Murrieta Interval history: This a 72-year-old female admitted with acute bowel obstruction status post exploratory laparotomy left colectomy with end colostomy and takedown of splenic flexure, splenectomy and partial omentectomy for obstructing left colonic mass suspicious for adenocarcinoma. Maintained on IV fluid hydration and Zosyn. T-max 99.4, WBC up to 13.3. Pain controlled with epidural. Potassium 5. Patient extremely hard of hearing, continuously asking for something to drink,. NPO with NG tube present. 04/13/2018 developed atrial fibrillation with RVR. Echo reports EF 55-60% Bolused and now on amiodarone drip as well as heparin drip per cardiology. Transferred to selective care/telemetry unit. Maintained on Zosyn and vancomycin, T-max 100-currently afebrile. States abdominal pain controlled. Denies chest pain, palpitations or increased shortness of breath. 04/14/2018 maintained on amiodarone and heparin drips. Converted to sinus rhythm. Continues on IV antibiotics of Zosyn and vancomycin. Up in chair with assistance of PT. continues to assess for food and drink, NG tube to low intermittent suction. IV fluid hydration. Denies nausea or vomiting. Receiving potassium supplements for potassium at 3.4. Afebrile, leukocytosis improving. 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 Benign spleen and adipose tissue/omentum. 04/18/2018 maintained on Zosyn .afebrile. Tolerating diet, no nausea vomiting or abdominal pain. Awaiting ECF placement. 04/19/2018 pain controlled. Evaluated by oncology with recommendations of following up outpatient after rehab. completed. Continues on IV antibiotics of Zosyn as per ID. Thrush improving with nystatin swish and swallow. Afebrile. Occasional nonproductive cough. Diet intake improving, denies nausea ,vomiting , diarrhea or abdominal pain. 04/20/18 continues to improve. Ambulating with assistance in room, tolerating exertion well. Denies abdominal pain. Reports eager to start rehab. Good diet intake with no nausea vomiting or diarrhea. T-max 99.1. 04/21/2018 maintained on IV antibiotics .abdominal pain controlled .denies nausea, vomiting. No diarrhea currently afebrile, T-max 99.1, WBC trending up , 16.3.blood cultures negative. Denies cough. Zosyn discontinued, vancomycin added to med regime. PLTS 1096. Denies chest pain, palpitations or shortness of breath. Objective - Vital Signs Vital signs: Vital Signs Temp 97.3 F L 04/21/18 15:00 Pulse 78 04/21/18 15:00 Resp 20 04/21/18 15:47 BP 101/65 04/21/18 15:00 Pulse Ox 92 L 04/21/18 15:00 Intake & Output 04/20/18 04/21/18 04/21/18 18:59 06:59 18:59 Intake Total 820 500 Output Total 301 Balance 820 500 -301 Intake: Intake, IV Titration 100 100 Amount Piperacillin-Tazobactam 3 100 100 .375 gm In Sodium Chloride 0.9% 100 ml @ 25 mls/hr IVPB Q8H [facility] Rx#: [id number] Oral 720 400 Output: Urine 1 Stool 300 Other: Voiding Method Toilet # Voids 1 2 5 - Exam PHYSICAL EXAM: VITAL SIGNS: As above GENERAL: Sitting up in bed, no acute distress, HEENT: Conjunctivae normal. eyes normal. Hard of hearing. Oral thrush NECK: No JVD. No thyroid enlargement. No LNs CARDIOVASCULAR: S1, S2 muffled. No murmur. RESPIRATION: Respiratory effort unlabored .essentially clear, Breath sounds diminished in the bases. ABDOMEN: Soft, status post surgery . Minimal erythema at incision site without drainage, positive bowel sounds. Small amount of liquid brown stool in ostomy bag. LEGS: Venodynes on bilateral lower PSYCHIATRY: Alert and oriented -3, mood and affect normal. NERVOUS SYSTEM: Cranial N 2-12 grossly normal. Moves all 4 limbs. Diffuse weakness No focal deficits. - Labs CBC & Chem 7: 04/21/18 09:01 04/21/18 09:01 Labs: Abnormal Lab Results - Last 24 Hours (Table) 04/21/18 04/21/18 Range/Units 09:01 09:01 WBC 16.3 H (3.8-10.6) k/uL RBC 3.70 L (3.80-5.40) m/uL Hgb 10.0 L (11.4-16.0) gm/dL Hct 32.5 L (34.0-46.0) % MCHC 30.8 L (31.0-37.0) g/dL Plt Count 1096 H* (150-450) k/uL Neutrophils # 12.7 H (1.3-7.7) k/uL Sodium 136 L (137-145) mmol/L Carbon Dioxide 31 H (22-30) mmol/L Glucose 103 H (74-99) mg/dL Assessment and Plan Assessment: -Acute bowel obstruction with obstructing mass left colonic mass, status post left colectomy with end colostomy, takedown splenic flexure and splenectomy and partial omentectomy. Pathology reporting adenocarcinoma. -Alpha hemolytic Streptococcus bacteremia, suspected abdominal source, possibly peritonitis -Possible sepsis secondary to the above -Worsening leukocytosis, antibiotics adjusted -Atrial fibrillation with RVR, new onset -Leukocytosis -Hard of hearing -Ongoing nicotine dependence -COPD -Bronchitis- -acute on chronic CHF, diastolic dysfunction Plan: Continue on current medication regime , nystatin, monitoring and symptomatic treatment. Worsening leukocytosis, antibiotics adjusted as per infectious disease. Patient here to get started in rehab.close monitoring of WBC, electrolytes with repeat labs ordered for a.m. Discharge planning in progress for subacute rehab in as per surgery. Increase Ambulation as tolerated , aggressive pulmonary toileting. Smoking cessation readdressed. The impression and plan of care has been dictated as directed. : I performed a history and examination of this patient, discussed the same with the dictator. I agree with the dictator's note ,documented as a scribe. Any additional findings or plans will be noted.
--- NOTE | 2018-04-21 18:30 | P.PN ---
Subjective Progress Note Date: 04/21/18 Principal diagnosis: Adenocarcinoma of colon No acute events overnight. Planning on rehab at discharge Objective - Vital Signs Vital signs: Vital Signs Temp 97.3 F L 04/21/18 15:00 Pulse 78 04/21/18 15:00 Resp 20 04/21/18 15:47 BP 101/65 04/21/18 15:00 Pulse Ox 92 L 04/21/18 15:00 Intake & Output 04/20/18 04/21/18 04/21/18 18:59 06:59 18:59 Intake Total 820 500 Output Total 301 Balance 820 500 -301 Intake: Intake, IV Titration 100 100 Amount Piperacillin-Tazobactam 3 100 100 .375 gm In Sodium Chloride 0.9% 100 ml @ 25 mls/hr IVPB Q8H [facility] Rx#: [id number] Oral 720 400 Output: Urine 1 Stool 300 Other: Voiding Method Toilet # Voids 1 2 5 - Exam Very Hard of hearing Inappropriate responses to questions, will require remediation NAD Head: NC/NT Neck Supple, no lymphadenopathy Lung: Rhonchi, DIminiahsed Bases, No increased effort Heart: RRR Abdomen: Ostomy, recent surgery evidence CDI Ext: No edema - Labs CBC & Chem 7: 04/21/18 09:01 04/21/18 09:01 Labs: Abnormal Lab Results - Last 24 Hours (Table) 04/21/18 04/21/18 Range/Units 09:01 09:01 WBC 16.3 H (3.8-10.6) k/uL RBC 3.70 L (3.80-5.40) m/uL Hgb 10.0 L (11.4-16.0) gm/dL Hct 32.5 L (34.0-46.0) % MCHC 30.8 L (31.0-37.0) g/dL Plt Count 1096 H* (150-450) k/uL Neutrophils # 12.7 H (1.3-7.7) k/uL Sodium 136 L (137-145) mmol/L Carbon Dioxide 31 H (22-30) mmol/L Glucose 103 H (74-99) mg/dL Assessment and Plan Plan: Assessment and Recommendations: 1. New Diagnosis of Adenocarcinoma of Colon Status Post Hemicolectomy with colostomy and splenectomy - Details from Pathology - 5.5cm Tumor with invasion muscularis propria and perirectal tissue - Zero of the 15 sampled lymph nodes showed evidence of metastatic cancer - Grade 2 Moderately Differentiated - Pathological Staging PT3, N0, MX - Likely Stage IIA disease - Await CT and Molecular testing - Since presenting with obstruction on admission would be considered high risk , therefore treatment adjuvantly with 5FU/Leuc or Xeloda treatment would be offered. If further evidence of high risk features additional adjuvant therapy maybe a possibility. Await MSI, oncotype 2. Normocytic Anemia - Secondary to Malignancy with likely Iron Deficiency Component - Will Check Iron Studies and may benefit from Parental Iron Infusions - Monitor CBC daily We will plan treatment as outpatient during follow-up after patient completes rehabilitation after this intiial hospitalizatiton. Adjuvant options would not be indicated for minimum of 4 weeks postoperatively and performance score will need to improve before these options can be given - A follow-up appointment has been made for her to see oncology, patient will require remediation Thank you for allowing us to participate in the care of this patient will follow along with you Marina QUINTERO
[2018-04-21] MEDS: LACTATED RINGERS 1,000 ML IV SCH (21:20)
[2018-04-22] MEDS: VANCOMYCIN 1,000 MG in SODIUM CHLORIDE 0.9% 250 ML IVPB SCH ×3 (01:04→15:13)
[2018-04-22 06:17] VITALS: BP 117/56; PULSE 80; RESP 18; TEMP 98.4
[2018-04-22 08:17] LABS: Basophils % (A) 0 %; Eosinophils # (A) 0.3 k/uL (0-0.7); Eosinophils % (A) 3 %; HCT 30.1 % (34.0-46.0); HGB 9.5 gm/dL (11.4-16.0); Hypochromasia Slight; Lymphocytes # (A) 1.5 k/uL (1.0-4.8); Lymphocytes % (A) 15 %; MCH 28.1 pg (25.0-35.0); MCHC 31.7 g/dL (31.0-37.0); MCV 88.8 fL (80.0-100.0); Mean Platelet Volume 8.3; Monocytes # (A) 0.6 k/uL (0-1.0); Monocytes % (A) 6 %; Neutrophils # (A) 7.8 k/uL (1.3-7.7); Neutrophils % (A) 75 %; Platelet Count 987 k/uL (150-450); RDW 15.7 % (11.5-15.5); WBC 10.4 k/uL (3.8-10.6)
[2018-04-22] MEDS: FUROSEMIDE 10 MG/ML 4 ML VIAL IV SCH (08:23)
[2018-04-22] MEDS: NICOTINE 14MG/24HR PATCH TRANSDERM SCH (08:23)
[2018-04-22] MEDS: APIXABAN 5 MG TAB PO SCH (08:23)
[2018-04-22] MEDS: OXYBUTYNIN 10 MG TAB.ER.24 PO SCH (08:23)
[2018-04-22] MEDS: METOPROLOL TARTRATE 25 MG TAB PO SCH (08:23)
[2018-04-22] MEDS: NYSTATIN 100,000 UNIT/ML SUSP 500,000 UNIT/5 ML CUP PO SCH ×3 (08:23→15:13)
[2018-04-22] MEDS: PANTOPRAZOLE 40 MG TABLET PO SCH (08:23)
[2018-04-22] MEDS: AMIODARONE 200 MG TAB PO SCH (08:23)
[2018-04-22 08:35] LABS: Anion Gap 7 mmol/L; Blood Urea Nitrogen 8 mg/dL (7-17); Calcium 8.4 mg/dL (8.4-10.2); Carbon Dioxide 28 mmol/L (22-30); Chloride 101 mmol/L (98-107); Glucose 95 mg/dL (74-99); Potassium 3.7 mmol/L (3.5-5.1); Sodium 136 mmol/L (137-145)
[2018-04-22 09:00] LABS: Poikilocytosis (M) Present
[2018-04-22] MEDS: IPRATROPIUM-ALBUTEROL 3 ML NEB INHALATION SCH ×2 (10:30→13:24)
[2018-04-22 11:02] VITALS: BMI 24.3
--- NOTE | 2018-04-22 12:29 | P.DS ---
Providers Date of admission: 04/10/18 20:09 Expected date of discharge: 04/22/18 Attending physician: Augustine Malagon Consults: 04/10/18 22:46 Consult Physician Routine Consulting Provider: Lauren Kruse Consult Reason/Comments: medical management Do you want consulting provider notified?: Yes 04/11/18 19:03 Consult Physician Routine Consulting Provider: Doreen Moralez Consult Reason/Comments: tachycardia/post-op Do you want consulting provider notified?: Yes 04/12/18 16:24 Consult Physician Routine Consulting Provider: Roberta Sparks Consult Reason/Comments: colectomy with fevers, Leukocytosis Do you want consulting provider notified?: Yes 04/14/18 20:37 Consult Physician Routine Consulting Provider: Ra Atwood Consult Reason/Comments: adenoca-colon( path just rec'd-not yet discussed with pt) Do you want consulting provider notified?: Yes Primary care physician: Leta Chino [facility] Course: This is a 72-year-old female who presents to the hospital with a colon obstruction secondary to colon cancer. Patient underwent colectomy with end colostomy. Please see chart for details. Procedures: Exposure laparotomy with left colon resection and colostomy Patient Condition at Discharge: Fair Plan - Discharge Summary Discharge Rx Participant: Yes New Discharge Prescriptions: No Action Oxybutynin Chloride [Ditropan XL] 10 mg PO DAILY Alendronate Sodium [Fosamax] 70 mg PO Q7D Discharge Medication List Alendronate Sodium [Fosamax] 70 mg PO Q7D 04/10/18 [History] Oxybutynin Chloride [Ditropan XL] 10 mg PO DAILY 04/10/18 [History] Follow up Appointment(s)/Referral(s): Dory Robb MD [STAFF PHYSICIAN] - 2 Weeks Lulú Gillette MD [Primary Care Provider] - 04/22/18 1:00 pm (Wednesday) Augustine Malagon MD [STAFF PHYSICIAN] - 1 Week Patient Instructions/Handouts: Colostomy Care (GEN) Activity/Diet/Wound Care/Special Instructions: [place] [facility] Transition post Discharge Abdominal Incision Care: Colostomy Care Recommendations for transition as follows: LAst Ostomy Appliance Change: 04/19/2018 [facility] Flanges: #[id number] (three for transition) Convatec Pouches : [id number] (three for transition) No sting prep pads (12) Osotmy Powder (1)
--- NOTE | 2018-04-22 13:03 | P.PN ---
Subjective 72-year-old female admitted with acute bowel obstruction status post exploratory laparotomy left colectomy with end colostomy and takedown of splenic flexure, splenectomy and partial omentectomy for obstructing left colonic mass suspicious for adenocarcinoma. Maintained on IV fluid hydration and Zosyn. T-max 99.4, WBC up to 13.3. Pain controlled with epidural. Potassium 5. Patient extremely hard of hearing, continuously asking for something to drink,. NPO with NG tube present. 04/13/2018 developed atrial fibrillation with RVR. Echo reports EF 55-60% Bolused and now on amiodarone drip as well as heparin drip per cardiology. Transferred to selective care/telemetry unit. Maintained on Zosyn and vancomycin, T-max 100-currently afebrile. States abdominal pain controlled. Denies chest pain, palpitations or increased shortness of breath. 04/14/2018 maintained on amiodarone and heparin drips. Converted to sinus rhythm. Continues on IV antibiotics of Zosyn and vancomycin. Up in chair with assistance of PT. continues to assess for food and drink, NG tube to low intermittent suction. IV fluid hydration. Denies nausea or vomiting. Receiving potassium supplements for potassium at 3.4. Afebrile, leukocytosis improving. 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 Benign spleen and adipose tissue/omentum. 04/18/2018 maintained on Zosyn .afebrile. Tolerating diet, no nausea vomiting or abdominal pain. Awaiting ECF placement. 04/19/2018 pain controlled. Evaluated by oncology with recommendations of following up outpatient after rehab. completed. Continues on IV antibiotics of Zosyn as per ID. Thrush improving with nystatin swish and swallow. Afebrile. Occasional nonproductive cough. Diet intake improving, denies nausea ,vomiting , diarrhea or abdominal pain. 04/20/18 continues to improve. Ambulating with assistance in room, tolerating exertion well. Denies abdominal pain. Reports eager to start rehab. Good diet intake with no nausea vomiting or diarrhea. T-max 99.1. 04/21/2018 maintained on IV antibiotics .abdominal pain controlled .denies nausea, vomiting. No diarrhea currently afebrile, T-max 99.1, WBC trending up , 16.3.blood cultures negative. Denies cough. Zosyn discontinued, vancomycin added to med regime. PLTS 1096. Denies chest pain, palpitations or shortness of breath. 04/22/2018 No overnight events patient is clinically doing well and patient will be discharged on toxic and I did do the whole medication reconciliation appropriate medications were prescribed and patient is being discharged to subacute rehabilitation. Patient has bilateral pleural effusions can be related to infection rather than CHF. Her ejection fraction is within normal limits, or may be related to atrial fibrillation patient will be discharged on low-dose of Lasix here she is receiving IV Lasix. We'll also give her potassium supplementation. If are not required down the line Lasix can be discontinued with monitoring. Patient was started on anticoagulation with eliquis which will be continued. Objective - Vital Signs Vital signs: Vital Signs Temp 98.4 F 04/22/18 06:16 Pulse 80 04/22/18 06:16 Resp 18 04/22/18 06:16 BP 117/56 04/22/18 06:16 Pulse Ox 94 L 04/22/18 06:16 Intake & Output 04/21/18 04/22/18 04/22/18 18:59 06:59 18:59 Output Total 301 0 Balance -301 0 Weight 62.3 kg Output: Urine 1 Stool 300 0 Other: Voiding Method Toilet Toilet # Voids 5 4 2 # Bowel Movements 0 - Exam PHYSICAL EXAMINATION: GENERAL: The patient is alert and oriented x3, not in any acute distress. Well developed, well nourished. HEENT: Pupils are round and equally reacting to light. EOMI. No scleral icterus. No conjunctival pallor. Normocephalic, atraumatic. No pharyngeal erythema. No thyromegaly. CARDIOVASCULAR: S1 and S2 present. No murmurs, rubs, or gallops. PULMONARY: Chest is clear to auscultation, no wheezing or crackles. ABDOMEN: Soft, nontender, nondistended, normoactive bowel sounds. No palpable organomegaly. MUSCULOSKELETAL: No joint swelling or deformity. EXTREMITIES: No cyanosis, clubbing, or pedal edema. NEUROLOGICAL: Gross neurological examination did not reveal any focal deficits. SKIN: No rashes. - Labs CBC & Chem 7: 04/22/18 07:36 04/22/18 07:36 Labs: Abnormal Lab Results - Last 24 Hours (Table) 04/22/18 04/22/18 Range/Units 07:36 07:36 RBC 3.40 L (3.80-5.40) m/uL Hgb 9.5 L (11.4-16.0) gm/dL Hct 30.1 L (34.0-46.0) % RDW 15.7 H (11.5-15.5) % Plt Count 987 H (150-450) k/uL Neutrophils # 7.8 H (1.3-7.7) k/uL Sodium 136 L (137-145) mmol/L Assessment and Plan Plan: Assessment and Plan Assessment: - bowel obstruction with obstructing mass left colonic mass, status post left colectomy with end colostomy, takedown splenic flexure and splenectomy and partial omentectomy. Pathology reporting adenocarcinoma. -Alpha hemolytic Streptococcus bacteremia, suspected abdominal source, she and is being discharged on doxepin for 7 more days patient here was on vancomycin and Zosyn - sepsis secondary to the above -Atrial fibrillation with RVR, new onset, patient is presently sinus rhythm proximal atrial fibrillation -Ongoing nicotine dependence -COPD -Bronchitis- Does not appear to have CHF but chronic diastolic dysfunction cannot be ruled out
--- NOTE | 2018-04-22 15:26 | PN ---
PROGRESS NOTE DATE OF SERVICE: 04/22/2018 REASON FOR FOLLOWUP: Abdominal incision cellulitis. INTERVAL HISTORY: The patient is afebrile. She is currently breathing comfortably. The patient denies having any chest pain, shortness of breath or cough. No abdominal pain. No nausea, vomiting or any diarrhea. PHYSICAL EXAMINATION: Her blood pressure is 117/56, pulse of 80, temperature 98.4. She is 94% on room air. General description is an elderly female up in the chair in no distress. RESPIRATORY SYSTEM: Unlabored breathing. Clear to auscultation anteriorly. HEART: S1, S2. Regular rate and rhythm. ABDOMEN: Soft. Incision with minimal edema. No drainage. LABS: Hemoglobin 9.5, white count of 10.4 with a BUN of 8, creatinine 0.73. DIAGNOSTIC IMPRESSION AND PLAN: Patient with secondary peritonitis, likely from mucosal tear in this patient who did have a high-grade obstruction, status post laparotomy and diverting colostomy. The patient did have a jump in her white count and responded to the addition of vancomycin; however, Surgery has already decided the patient will be switched over to doxycycline b.i.d. for about 7 days with close outpatient followup. Plan of care was discussed with the admitting team. MMSHWETAL / AYESHAN: [id number] /
[2018-04-23] MEDS ORDERED: VANCOMYCIN TROUGH DUE 1 EACH MISC MISCELLANE ONE (07:00)
== END 2018-04-22 17:09 | DRG 329 ==
LOC: EC 16:26 → 4SSUR 20:09 → 3SCARD 04-13 12:44 → 4MS4W 04-19 22:34
PROVIDERS: ADMIT Surgery; ATTEND Surgery
PROC: 0D1M0Z4 Bypass Descending Colon to Cutaneous, Open Approach (ICD-10-PCS; 2018-04-11)
PROC: 07TP0ZZ Resection of Spleen, Open Approach (ICD-10-PCS; 2018-04-11)
PROC: 0DNW0ZZ Release Peritoneum, Open Approach (ICD-10-PCS; 2018-04-11)
PROC: 0DQF0ZZ Repair Right Large Intestine, Open Approach (ICD-10-PCS; 2018-04-11)
PROC: 0DBU0ZZ Excision of Omentum, Open Approach (ICD-10-PCS; 2018-04-11)
PROC: 0DTG0ZZ Resection of Left Large Intestine, Open Approach (ICD-10-PCS; principal; 2018-04-11 09:40)
DX: C18.6 Malignant neoplasm of descending colon (principal); I50.33 Acute on chronic diastolic (congestive) heart failure; A40.0 Sepsis due to streptococcus, group A; K65.8 Other peritonitis; E87.1 Hypo-osmolality and hyponatremia; I97.191 Other postprocedural cardiac functional disturbances following other surgery; B37.0 Candidal stomatitis; H91.90 Unspecified hearing loss, unspecified ear; D63.0 Anemia in neoplastic disease; K66.0 Peritoneal adhesions (postprocedural) (postinfection); E86.0 Dehydration; E87.6 Hypokalemia; I27.20 Pulmonary hypertension, unspecified; I48.0 Paroxysmal atrial fibrillation; J44.9 Chronic obstructive pulmonary disease, unspecified; F17.210 Nicotine dependence, cigarettes, uncomplicated; Z71.6 Tobacco abuse counseling; Z79.899 Other long term (current) drug therapy; Z79.83 Long term (current) use of bisphosphonates; Z86.010 Personal history of colon polyps
CPT/HCPCS: 36415; 71045; 71260; 74177; 80048; 80053; 80202; 81003; 82150; 82607; 82728; 82746; 83540; 83550; 83605; 83690; 83735; 83880; 84132; 84443; 84484; 85025; 85610; 85730; 87040; 87077; 87086; 87150; 87186; 88305; 88309; 93005; 93306; 94640; 94760; 96361; 96374; 96375; 99285

== ENCOUNTER 2018-04-27 17:38 | Emergency (ER) | payer MEDICARE, OTHER ==
[2018-04-27 18:04] VITALS: BP 91/54; PULSE 65; RESP 18; TEMP 97.9
--- NOTE | 2018-04-27 19:16 | ED ---
Abdominal Pain HPI - General Chief Complaint: Abdominal Pain Stated Complaint: POST OP ABDOMINAL WOUND Time Seen by Provider: 04/27/18 17:57 Source: patient, EMS, RN notes reviewed, old records reviewed Mode of arrival: EMS Limitations: physical limitation - History of Present Illness Initial Comments: Patient is a 72-year-old female who is presents emergency department from [facility]. Patient is here for surgical wound recheck. 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 This was done by Dr. Gant. She is currently residing at [facility]. At this time Patient presents with concerns for infection and dehiscence of her wound. She states that she follows up with Dr. Shah on May 06 to evaluate the wound. She is also currently and doxycycline because she did have sepsis bacteremia sensitive to doxycycline on discharge. She is discharged to the [facility] approximately 5 days ago. - Related Data Home Medications Medication Instructions Recorded Confirmed Alendronate Sodium [Fosamax] 70 mg PO Q7D 04/10/18 04/27/18 Oxybutynin Chloride [Ditropan XL] 10 mg PO DAILY 04/10/18 04/27/18 Apixaban [Eliquis] 2.5 mg PO BID 04/27/18 04/27/18 Previous Rx's Medication Instructions Recorded Amiodarone [Cordarone] 200 mg PO BID tab 04/22/18 Doxycycline Hyclate 100 mg PO Q12H #14 tab 04/22/18 Furosemide [Lasix] 20 mg PO DAILY #30 tab 04/22/18 Metoprolol Tartrate [Lopressor] 25 mg PO BID tab 04/22/18 Nicotine 14Mg/24Hr Patch [Habitrol] 1 patch TRANSDERM DAILY patch 04/22/18 Nystatin 100,000 Unit/ml Susp 500,000 unit PO QID cup 04/22/18 [Mycostatin Oral Susp] Potassium Chloride ER [K-Dur 10] 10 meq PO DAILY #30 tab 04/22/18 Ranitidine HCl [Zantac] 150 mg PO BID #30 tab 04/22/18 Allergies Allergy/AdvReac Type Severity Reaction Status Date / Time No Known Allergies Allergy Verified 04/27/18 18:34 Review of Systems ROS Statement: Those systems with pertinent positive or pertinent negative responses have been documented in the HPI. ROS Other: All systems not noted in ROS Statement are negative. Past Medical History Past Medical History: No Reported History History of Any Multi-Drug Resistant Organisms: None Reported Past Surgical History: Section Additional Past Surgical History / Comment(s): Cataracts Past Anesthesia/Blood Transfusion Reactions: No Reported Reaction Past Psychological History: No Psychological Hx Reported Smoking Status: Current every day smoker Past Alcohol Use History: Rare Past Drug Use History: None Reported - Past Family History Mother Family Medical History: No Reported History General Exam - General Exam Comments Initial Comments: 72-year-old female. Alert and oriented. Patient appears in no significant distress. Limitations: physical limitation General appearance: alert, in no apparent distress Head exam: Present: atraumatic, normocephalic, normal inspection Eye exam: Present: normal appearance, PERRL, EOMI. Absent: scleral icterus, conjunctival injection, periorbital swelling ENT exam: Present: normal exam, mucous membranes moist Neck exam: Present: normal inspection. Absent: tenderness, meningismus, lymphadenopathy Respiratory exam: Present: normal lung sounds bilaterally. Absent: respiratory distress, wheezes, rales, rhonchi, stridor Cardiovascular Exam: Present: regular rate, normal rhythm, normal heart sounds. Absent: systolic murmur, diastolic murmur, rubs, gallop, clicks GI/Abdominal exam: Present: soft, normal bowel sounds, other (Patient has extensive incision site from breastbone to lower abdomen. Patient has some minor erythema, and drainage from the lower third of the incision site. She has some loose elke, and minor wound dehiscence.). Absent: distended, tenderness, guarding, rebound, rigid Extremities exam: Present: normal inspection, full ROM, normal capillary refill. Absent: tenderness, pedal edema, joint swelling, calf tenderness Back exam: Present: normal inspection Neurological exam: Present: alert, oriented X3, CN II-XII intact Psychiatric exam: Present: normal affect, normal mood Skin exam: Present: warm, dry, intact, normal color. Absent: rash Course Vital Signs 04/27/18 17:59 Temperature 97.9 F Pulse Rate 65 Respiratory 18 Rate Blood Pressure 91/54 O2 Sat by Pulse 93 L Oximetry - Reevaluation(s) Reevaluation #1: 04/27/18 19:10 Dr. Hoffmann uterine discussed the case with Dr. Parisi. He recommends removing one of the elke and packing the area with iodoform. She has no fever at this time. Noble will not relieve the entire elke at this time. Medical Decision Making - Medical Decision Making 72-year-old female presents today for evaluation for wound care. She has had some drainage from the lower third of the abdominal incision site. There is no fluctuance. We will culture this drainage. She is some minor erythema surrounding the staple area over the lower third. Case was discussed with Dr. BARAJAS did discuss the case with Dr. Parisi. Recommended removing one staple in packing the area with iodoform. Continuing clean dressings over the area. Patient is to follow-up with Dr. Khan have the rest of the elke removed in his office. Discussed will not remove all of the elke at this time. Patient seems quite anxious to want to be discharged from the extended care facility. However this time and no reason to admit the Patient and patiently. She is currently on antibiotics. Discussed wound care instructions and colostomy care. Disposition Clinical Impression: Wound dehiscence, surgical, Seroma Disposition: HOME SELF-CARE Condition: Good Instructions: Wound Infection (ED), Acute Wound Care (ED) Additional Instructions: Continue antibiotic as prescribed. Patient advised to follow-up with Dr. Momin. Patient should've clean dry dressings over the area and keep the iodoform within the wound until follow-up with surgeon. Is patient prescribed a controlled substance at d/c from ED?: No Referrals: Lulú Gillette MD [Primary Care Provider] - 1-2 days Augustine Malagon MD [STAFF PHYSICIAN] - 1-2 days Time of Disposition: 19:13
== END 2018-04-28 00:15 | disposition home or self-care (01) ==
LOC: EC 17:38
DX: T81.31XA Disruption of external operation (surgical) wound, not elsewhere classified, initial encounter (principal); K91.872 Postprocedural seroma of a digestive system organ or structure following a digestive system procedure; F17.200 Nicotine dependence, unspecified, uncomplicated; Z90.49 Acquired absence of other specified parts of digestive tract; Z90.81 Acquired absence of spleen; Z79.01 Long term (current) use of anticoagulants; Z79.899 Other long term (current) drug therapy
CPT/HCPCS: 87070; 87077; 87186; 87205; 99284

== ENCOUNTER → 2019-03-14 | Outpatient (CLI) | payer MEDICARE, OTHER ==
--- NOTE | 2019-03-14 13:45 | CT ---
EXAMINATION TYPE: CT ChestAbdPelvis w con DATE OF EXAM: 03/14/2019 COMPARISON: Prior CT chest 04/15/2018, CT abdomen pelvis 04/10/2018 HISTORY: Colon cancer CT DLP: 425.3 mGycm Automated exposure control for dose reduction was used. CONTRAST: CT scan of the chest, abdomen and pelvis is performed with Oral Contrast and with IV Contrast, patien t injected with 80 mL of Isovue 300. FINDINGS: LUNGS: The lungs are remarkable for some areas of groundglass opacity left upper lobe, left lower lob e, right lower lobe. There is a lung nodule seen on axial image #42 of the right lower lobe measuring approximately 8 mm in size not definitively seen on prior exam. The hazy identified pleural effusion s have improved, only minimal residual effusion on the left, bibasilar atelectatic change. Some linea r bands of increased attenuation along the left lower lobe and lingula are noted. Subpleural nodular density on axial image #43 measures only 3 to 4 mm subpleural location and also left lower lobe axial image 37. MEDIASTINUM: Calcified subcarinal, bilateral hilar nodes, retrocaval pretracheal node. Pulmonary pham ry is prominent, correlate for possible pulmonary artery hypertension. AORTA: No significant abnormality is seen. OTHER: No additional significant abnormality is seen. LIVER/GB: Dependent high density in the gallbladder may be due to stones or tumefactive sludge. Liver appears dense. PANCREAS: No significant abnormality is seen. SPLEEN: Not seen. ADRENALS: No significant abnormality is seen. KIDNEYS: No significant abnormality is seen. REPRODUCTIVE ORGANS: Not seen BOWEL: There is an ostomy present in the left lower quadrant, patient is post partial colectomy. Que stion some nonspecific colonic wall thickening along the descending colon. Contrast has not coursed d istally within the bowel. FREE AIR: No Free Air visible. ASCITES: Possible minimal fluid in the pelvis and along the right paracolic gutter RETROPERITONEAL ADENOPATHY: No retroperitoneal adenopathy is seen. LYMPH NODES: No greater than 1 cm abdominal or pelvic lymph nodes are appreciated. URINARY BLADDER: No significant abnormality is seen. PELVIC ADENOPATHY: None visualized. OSSEOUS STRUCTURES: There is a scoliosis. Underlying degenerative disc disease is present with facet arthropathy noted especially in the lower lumbar spine. IMPRESSION: Lung nodules may be indicative of metastatic disease. Dense liver. Possible cholelithiasi s. Postop changes. Correlate to exclude colitis. Minimal fluid present in the pelvis and abdomen.
== END ==
LOC: RADCTMAIN 10:41
PROVIDERS: ATTEND Internal Medicine Hematology & Oncology
DX: C18.6 Malignant neoplasm of descending colon (principal); R91.8 Other nonspecific abnormal finding of lung field
CPT/HCPCS: 82565; 84520; 71260; 74177; 36415; Q9967 ×2

== ENCOUNTER 2019-03-24 15:26 | Inpatient (IN) | payer MEDICARE, OTHER ==
[2019-03-24 15:59] LABS: Anisocytosis Slight; Basophils % (A) 0 %; Eosinophils # (A) 0.1 k/uL (0-0.7); Eosinophils % (A) 1 %; HCT 35.9 % (34.0-46.0); HGB 11.7 gm/dL (11.4-16.0); Lymphocytes # (A) 1.2 k/uL (1.0-4.8); Lymphocytes % (A) 13 %; MCH 35.1 pg (25.0-35.0); MCHC 32.5 g/dL (31.0-37.0); MCV 108.2 fL (80.0-100.0); Macrocytosis Marked; Mean Platelet Volume 8.5; Monocytes # (A) 0.7 k/uL (0-1.0); Monocytes % (A) 8 %; Neutrophils # (A) 6.9 k/uL (1.3-7.7); Neutrophils % (A) 76 %; Platelet Count 381 k/uL (150-450); RBC 3.32 m/uL (3.80-5.40); RDW 17.8 % (11.5-15.5)
[2019-03-24 16:10] LABS: Albumin 2.7 g/dL (3.5-5.0); Calcium 8.3 mg/dL (8.4-10.2); Potassium 4.3 mmol/L (3.5-5.1); Total Bilirubin 1.2 mg/dL (0.2-1.3); Total Protein 5.2 g/dL (6.3-8.2)
--- NOTE | 2019-03-24 16:23 | ED ---
General Adult HPI - General Chief complaint: Weakness Stated complaint: Weakness Time Seen by Provider: 03/24/19 15:35 Source: patient Mode of arrival: ambulatory Limitations: no limitations - History of Present Illness Initial comments: Dictation was produced using [employer] dictation software. please excuse any grammatical, word or spelling errors. Chief Complaint: 73-year-old female presents with chief complaint of right foot swelling and multiple falls. History of Present Illness: 73-year-old female presents with chief complaint of right foot swelling multiple falls. Patient is a poor historian. She is presenting to the emergency Department with her family member who is also a poor historian. She has been having multiple falls for the last week. She states that this is because her right ankle is swollen. Patient denies any fever, chills or night sweats. She believes that all of her falls are secondary to her medications. Patient denies any new medications at this time. Patient has a pain complains currently. States her right ankle is swollen. He has any history of gout. Patient unable to tell me what exactly her medications are currently. The ROS documented in this emergency department record has been reviewed and confirmed by me. Those systems with pertinent positive or negative responses have been documented in the HPI. All other systems are other negative and/or noncontributory. PHYSICAL EXAM: General Impression: Alert and oriented x3, not in acute distress, disheveled HEENT: Normocephalic atraumatic, extra-ocular movements intact, pupils equal and reactive to light bilaterally, mucous membranes moist. Cardiovascular: Heart regular rate and rhythm, S1&S2 audible, no murmurs, rubs or gallops Chest: Lungs clear to auscultation bilaterally, no rhonchi, no wheeze, no rales Abdomen: Bowel sounds present, abdomen soft, non-tender, non-distended, no organomegaly Right foot: Slight swelling around the ankle and dorsum of the foot compared to the left. No erythema, no tenderness to palpation Musculoskeletal: Pulses present and equal in all extremities, no peripheral edema Motor: no focal deficits noted Neurological: CN II-XII grossly intact, no focal motor or sensory deficits noted Skin: Intact with no visualized rashes Psych: Normal affect and mood ED course: 73-year-old female presents with chief complaint of multiple falls and right foot swelling. Vital signs upon arrival are within acceptable limits. Patient is well-appearing. Laboratory evaluation obtained. Patient CBC is obtained showing MCV of 108.2. This appears to be new compared to last year. Coag panel is unremarkable. Metabolic panel is negative. Patient is very wobbly on her feet. There is concern that patient's symptoms are secondary to folic acid versus thiamine deficiency. Ankle x-ray chest x-ray pelvis x-ray and computed tomography scan of the head and C-spine are all unremarkable. Given patient's social situation I do not believe it is safe for patient to be discharged home. Patient is understandable and agreeable to plan. Patient given dose of thiamine and folic acid emergency department. EKG interpretation: Ventricular rate sinus bradycardia, 54,. 172, QS 92, QTc 451. No [place] prolongation, no QTC prolongation, no ST or T-wave changes noted. EKG compared to 04/10/2018 showing no changes. Overall, this EKG is unremarkable - Related Data Home Medications Medication Instructions Recorded Confirmed Alendronate Sodium [Fosamax] 70 mg PO Q7D 04/10/18 04/27/18 Oxybutynin Chloride [Ditropan XL] 10 mg PO DAILY 04/10/18 04/27/18 Apixaban [Eliquis] 2.5 mg PO BID 04/27/18 04/27/18 Previous Rx's Medication Instructions Recorded Amiodarone [Cordarone] 200 mg PO BID tab 04/22/18 Doxycycline Hyclate 100 mg PO Q12H #14 tab 04/22/18 Furosemide [Lasix] 20 mg PO DAILY #30 tab 04/22/18 Metoprolol Tartrate [Lopressor] 25 mg PO BID tab 04/22/18 Nicotine 14Mg/24Hr Patch [Habitrol] 1 patch TRANSDERM DAILY patch 04/22/18 Nystatin 100,000 Unit/ml Susp 500,000 unit PO QID cup 04/22/18 [Mycostatin Oral Susp] Potassium Chloride ER [K-Dur 10] 10 meq PO DAILY #30 tab 04/22/18 Ranitidine HCl [Zantac] 150 mg PO BID #30 tab 04/22/18 Allergies Allergy/AdvReac Type Severity Reaction Status Date / Time No Known Allergies Allergy Verified 03/24/19 15:31 Review of Systems ROS Statement: Those systems with pertinent positive or pertinent negative responses have been documented in the HPI. ROS Other: All systems not noted in ROS Statement are negative. Past Medical History Past Medical History: Unable to Obtain History of Any Multi-Drug Resistant Organisms: None Reported Past Surgical History: Section Additional Past Surgical History / Comment(s): Cataracts, colostomy Past Anesthesia/Blood Transfusion Reactions: No Reported Reaction Past Psychological History: No Psychological Hx Reported Smoking Status: Current every day smoker Past Alcohol Use History: Rare Past Drug Use History: None Reported - Past Family History Mother Family Medical History: No Reported History General Exam Limitations: no limitations Course Vital Signs 03/24/19 15:28 Temperature 97.8 F Pulse Rate 62 Respiratory 20 Rate Blood Pressure 103/54 O2 Sat by Pulse 94 L Oximetry Medical Decision Making - Lab Data Result diagrams: 03/24/19 15:46 03/24/19 15:46 Lab Results 03/24/19 03/24/19 03/24/19 Range/Units 15:46 15:46 15:46 WBC 9.0 (3.8-10.6) k/uL RBC 3.32 L (3.80-5.40) m/uL Hgb 11.7 (11.4-16.0) gm/dL Hct 35.9 (34.0-46.0) % MCV 108.2 H (80.0-100.0) fL MCH 35.1 H (25.0-35.0) pg MCHC 32.5 (31.0-37.0) g/dL RDW 17.8 H (11.5-15.5) % Plt Count 381 (150-450) k/uL Neutrophils % 76 % Lymphocytes % 13 % Monocytes % 8 % Eosinophils % 1 % Basophils % 0 % Neutrophils # 6.9 (1.3-7.7) k/uL Lymphocytes # 1.2 (1.0-4.8) k/uL Monocytes # 0.7 (0-1.0) k/uL Eosinophils # 0.1 (0-0.7) k/uL Basophils # 0.0 (0-0.2) k/uL Poikilocytosis (manual Present Anisocytosis Slight Macrocytosis Marked A Ovalocytes Present PT (9.0-12.0) sec INR (<1.2) APTT (22.0-30.0) sec Sodium 134 L (137-145) mmol/L Potassium 4.3 (3.5-5.1) mmol/L Chloride 104 (98-107) mmol/L Carbon Dioxide 25 (22-30) mmol/L Anion Gap 5 mmol/L BUN 23 H (7-17) mg/dL Creatinine 1.08 H (0.52-1.04) mg/dL Est GFR (CKD-EPI)AfAm 60 (>60 ml/min/1.73 sqM) Est GFR (CKD-EPI)NonAf 52 (>60 ml/min/1.73 sqM) Glucose 90 (74-99) mg/dL Plasma Lactic Acid Marko 0.9 (0.7-2.0) mmol/L Calcium 8.3 L (8.4-10.2) mg/dL Magnesium 2.0 (1.6-2.3) mg/dL Total Bilirubin 1.2 (0.2-1.3) mg/dL AST 72 H (14-36) U/L ALT 94 H (9-52) U/L Alkaline Phosphatase 79 (38-126) U/L Total Protein 5.2 L (6.3-8.2) g/dL Albumin 2.7 L (3.5-5.0) g/dL 03/24/19 Range/Units 15:46 WBC (3.8-10.6) k/uL RBC (3.80-5.40) m/uL Hgb (11.4-16.0) gm/dL Hct (34.0-46.0) % MCV (80.0-100.0) fL MCH (25.0-35.0) pg MCHC (31.0-37.0) g/dL RDW (11.5-15.5) % Plt Count (150-450) k/uL Neutrophils % % Lymphocytes % % Monocytes % % Eosinophils % % Basophils % % Neutrophils # (1.3-7.7) k/uL Lymphocytes # (1.0-4.8) k/uL Monocytes # (0-1.0) k/uL Eosinophils # (0-0.7) k/uL Basophils # (0-0.2) k/uL Poikilocytosis (manual Anisocytosis Macrocytosis Ovalocytes PT 11.3 (9.0-12.0) sec INR 1.1 (<1.2) APTT 24.3 (22.0-30.0) sec Sodium (137-145) mmol/L Potassium (3.5-5.1) mmol/L Chloride (98-107) mmol/L Carbon Dioxide (22-30) mmol/L Anion Gap mmol/L BUN (7-17) mg/dL Creatinine (0.52-1.04) mg/dL Est GFR (CKD-EPI)AfAm (>60 ml/min/1.73 sqM) Est GFR (CKD-EPI)NonAf (>60 ml/min/1.73 sqM) Glucose (74-99) mg/dL Plasma Lactic Acid Marko (0.7-2.0) mmol/L Calcium (8.4-10.2) mg/dL Magnesium (1.6-2.3) mg/dL Total Bilirubin (0.2-1.3) mg/dL AST (14-36) U/L ALT (9-52) U/L Alkaline Phosphatase (38-126) U/L Total Protein (6.3-8.2) g/dL Albumin (3.5-5.0) g/dL Disposition Clinical Impression: Risk for falls, Vitamin deficiency, Macrocytosis Disposition: ADMITTED IP TO THIS [facility] Condition: Fair Referrals: Lulú Gillette MD [Primary Care Provider] - 1-2 days Decision Time: 18:08
[2019-03-24 16:29] LABS: INR 1.1 (<1.2); Partial Thromboplastin Time 24.3 sec (22.0-30.0); Prothrombin Time 11.3 sec (9.0-12.0)
--- NOTE | 2019-03-24 16:41 | XR ---
EXAMINATION TYPE: XR ankle complete RT DATE OF EXAM: 03/24/2019 CLINICAL HISTORY: Right ankle pain and swelling after fall TECHNIQUE: Frontal, lateral and oblique images of the right ankle are obtained. COMPARISON: None. FINDINGS: There is no acute fracture/dislocation evident in the right ankle. The ankle mortise appe ars within normal limits. The overlying soft tissue appears unremarkable. Soft tissue swelling of t he right ankle joint is seen. IMPRESSION: Soft tissue swelling surrounding the ankle joint with no acute fracture or dislocation in the right ankle or foot.
--- NOTE | 2019-03-24 16:42 | XR ---
EXAMINATION TYPE: XR chest 2V DATE OF EXAM: 03/24/2019 COMPARISON: 04/17/2019 HISTORY: Frequent falls and chest pain TECHNIQUE: Frontal and lateral views of the chest are obtained. FINDINGS: There is a chronic left basilar opacity and trace left pleural effusion. This seen on the exam of 04/17/2018.. Granulomatous changes are seen of the mediastinum. The cardiac silhouette size i s within normal limits. The osseous structures are grossly intact. Diffuse osseous demineralization . Dextroscoliosis of the thoracic spine. IMPRESSION: Chronic left basilar opacity seen back to 04/17/2018. Small pleural effusion and atelect asis versus recurrent pneumonia are considerations.
--- NOTE | 2019-03-24 16:43 | XR ---
EXAMINATION TYPE: XR pelvis AP view DATE OF EXAM: 03/24/2019 CLINICAL HISTORY: Frequent falls. Pelvic pain. TECHNIQUE: A single AP view of the pelvis is obtained. COMPARISON: None. FINDINGS: Diffuse osseous demineralization is seen. There is no acute fracture/dislocation evident in the pelvis. Phleboliths are seen within the pelvis. The hip and sacroiliac joints appear symmetric and unremarkable. The overlying soft tissue appears unremarkable. Left lower quadrant ostomy noted. IMPRESSION: There is no acute fracture or dislocation in the pelvis.
[2019-03-24] MEDS ORDERED: FOLIC ACID 1 MG TAB PO STA (16:46)
[2019-03-24] MEDS ORDERED: THIAMINE 100 MG TAB PO STA (16:46)
--- NOTE | 2019-03-24 17:26 | CT ---
EXAMINATION TYPE: CT brain dino gibbons DATE OF EXAM: 03/24/2019 COMPARISON: None HISTORY: Weakness, fall CT DLP: 1259.6 mGycm Automated exposure control for dose reduction was used. TECHNIQUE: CT scan of the head and cervical spine are performed without contrast. FINDINGS: There is no acute intracranial hemorrhage, mass effect, or midline shift identified. The ventricles and sulci are within normal limits in size. There is cortical atrophy. Periventricular wh ite matter low-attenuation is present. The globes are intact and the visualized sinuses are remarkabl e for inflammatory change in the sphenoid sinus. There are cerebral vascular calcifications. Cervical spine is visualized in its entirety from C1 through upper thoracic levels and demonstrates s atisfactory alignment without evidence of acute fracture or dislocation. There is multilevel spondylo sis. Loss of disc height present at the intervertebral levels. Minimal retrolisthesis grade 1 C3-4, C 4-5. Multilevel facet arthropathy. Spinal curvature is noted in the thoracic spine. Prevertebral sof t tissue appears within normal limits. Multilevel foraminal encroachment. The C1-C2 articulation is u nremarkable. Left lung apex shows of pleural effusion, some associated right basilar opacity. IMPRESSION: 1. There is no acute fracture or dislocation evident in the cervical spine. 2. No acute intracranial hemorrhage, mass effect, or midline shift is seen. 3. Left pleural effusion, there may be associated pneumonia or atelectasis.
[2019-03-24 18:01] LABS: Ovalocytes Present; Poikilocytosis (M) Present
[2019-03-24] MEDS ORDERED: ONDANSETRON 4 MG/2 ML VIAL IVP PRN (18:04)
[2019-03-24] MEDS ORDERED: NALOXONE 0.4 MG/ML 1 ML VIAL IV PRN (18:04)
[2019-03-24] MEDS ORDERED: NON FORMULARY DRUG (Alendronate Sodium [Fosamax] 70 MG) PO SCH (18:15)
[2019-03-24] MEDS: SODIUM CHLORIDE 0.9% 1,000 ML IV SCH (19:52)
[2019-03-24] MEDS: APIXABAN 2.5 MG TABLET PO SCH (20:28)
[2019-03-24] MEDS: AMIODARONE 200 MG TAB PO SCH (20:31)
[2019-03-25] MEDS: AMIODARONE 200 MG TAB PO SCH (07:49)
[2019-03-25] MEDS: MULTIVITAMINS, THERA 1 EACH TAB PO SCH (07:49)
[2019-03-25] MEDS: APIXABAN 2.5 MG TABLET PO SCH (07:50)
[2019-03-25 10:25] VITALS: BMI 17.2
[2019-03-25] MEDS: SODIUM CHLORIDE 0.9% 1,000 ML IV SCH (18:21)
--- NOTE | 2019-03-25 20:32 | CONS ---
CONSULTATION Mrs. Shin is a 73-year-old female, followed by Dr. Gillette, who presented to the emergency room with symptoms of progressive fatigue and weakness and unsteadiness, brought in by her daughter to the emergency room. The patient is quite vague about her symptoms. She is not sure what medication she is taking. She was in the hospital in April of last year for abdominal surgery and colostomy. At that time she had paroxysmal atrial fibrillation and was initiated on amiodarone and Eliquis but according to the correction, her medication had not been refilled from the pharmacy and it is unclear if the patient is taking any anticoagulation or antiarrhythmic. She denies any chest pain. Her breathing has been stable. She denies any dizziness or palpitation. She denies any PND, orthopnea, or peripheral edema. Her activity is somewhat limited. MEDICATION: His medications at home are unknown. SOCIAL HISTORY: She smokes on a daily basis. REVIEW OF SYSTEMS: RESPIRATORY SYSTEM: She had dyspnea on exertion. No recent wheezing or cough. GI SYSTEM: No recent GI bleeding. No peptic ulcer disease. She has colostomy. SYSTEM: No dysuria or hematuria. NERVOUS SYSTEM: No history of stroke or seizure. PHYSICAL EXAMINATION: 73-year-old female, alert, poor historian, and vague in her history. Blood pressure 123/80 with a heart rate in the 50s. HEAD: Normocephalic. EYES: Sclerae anicteric. NECK: Good carotid upstroke. No bruit. No jugular venous distention. LUNGS: Decreased air exchange, no wheezes. HEART: Regular rhythm S1, S2. No S3 with systolic murmur. No diastolic murmur, no rub. ABDOMEN: Soft, nontender. Colostomy in place. Positive bowel sounds. No organomegaly. EXTREMITIES: No edema. Decreased distal pulses. LAB DATA: Revealed sinus bradycardia rate of [address]-T wave changes. Hemoglobin of 11.7, BUN and creatinine 23 and 1.08. AST of 72, ALT of 94. TSH 1.530. IMPRESSION: 1. Generalized weakness and fatigue of unclear reason. 2. History of paroxysmal fibrillation, remains in sinus mechanism. 3. Questionable compliance with medication and anticoagulation. 4. History of chronic tobacco use. 5. Bradycardia. RECOMMENDATION: I will not re-initiate amiodarone or Eliquis at this point. We will try to get from her daughter what medication she is taking. In the past, her left ventricular systolic function was normal and there was no evidence of significant valvular disease. I will await the list of her medication at home to make further recommendations. Thank you for this consult. We will follow with you. MARSHALL / JULIUS: [id number] /
--- NOTE | 2019-03-25 22:10 | P.HPIM ---
History of Present Illness H&P Date: 03/25/19 Chief Complaint: Multiple falls Patient is 73-year-old female with a known history of hypertension, paroxysmal atrial fibrillation and has not been taking Eliquis since October 2018, colon cancer with history of colectomy about a year back and is currently on chemotherapy, last dose about 4 days back and nicotine addiction came to ER with complaints of multiple falls and right foot swelling. Patient denied any complaints of chest pain or shortness of breath. Patient says that her medications are causing her symptoms and feeling dizzy. Patient says that she has been having falls and hurt her right ankle which is swollen. No history of joint swelling. Denied any fever or chills. No cough or sputum production. No nausea vomiting or abdominal pain or diarrhea. Patient is somewhat poor historian and has been noncompliant with her medications. EKG showed sinus bradycardia with heart rate 54 Chest x-ray showed chronic left basilar opacity seen in April 2018. Small pleural effusion and atelectasis versus recurrent pneumonia is a consideration. No leukocytosis CT head and cervical spine showed no acute intracranial abnormality and no acute fractures. Patient cannot recall her medications. Review of Systems Constitutional: Patient denies any fever or chills . Generalized weakness and falls. Abdomen: Patient denied nausea vomiting and diarrhea and abdominal pain. Cardiovascular: Patient denies any chest pain or short of breath no palpitations. Respiratory: patient denied any cough is from production. No shortness of breath Neurologic: Patient denied any numbness or tingling headache. Musculoskeletal: Patient denies any complaints of joint swelling or deformity. Skin: Negative Psychiatric: Negative Endocrine: No heat or cold intolerance. No recent weight gain. Genitourinary: No dysuria or hematuria. All other 14 point ROS negative except the above Past Medical History Past Medical History: Cancer, Hypertension Additional Past Medical History / Comment(s): colon cancer with colostomy to llq; patient does not know health history or what is wrong with her. History of Any Multi-Drug Resistant Organisms: None Reported Past Surgical History: Bowel Resection, Section Additional Past Surgical History / Comment(s): Cataracts, colostomy. patient is unsure on medical history. Past Anesthesia/Blood Transfusion Reactions: No Reported Reaction Past Psychological History: No Psychological Hx Reported Smoking Status: Current every day smoker Past Alcohol Use History: None Reported Past Drug Use History: None Reported - Past Family History Mother Family Medical History: No Reported History Medications and Allergies Home Medications Medication Instructions Recorded Confirmed Type Oxybutynin Chloride [Ditropan XL] 10 mg PO DAILY 04/10/18 03/24/19 History Amiodarone [Cordarone] 200 mg PO BID tab 04/22/18 03/24/19 Rx Metoprolol Tartrate [Lopressor] 25 mg PO BID tab 04/22/18 03/24/19 Rx Potassium Chloride ER [K-Dur 10] 10 meq PO DAILY #30 tab 04/22/18 03/24/19 Rx Cholecalciferol [Vitamin D3] 400 unit PO DAILY 03/24/19 03/24/19 History Meloxicam [Mobic] 7.5 mg PO BID PRN 03/24/19 03/24/19 History Triamcinolone 0.1% Cream [Kenalog 1 applic TOPICAL BID 03/24/19 03/24/19 History 0.1% Cream] Allergies Allergy/AdvReac Type Severity Reaction Status Date / Time No Known Allergies Allergy Verified 03/24/19 15:31 Physical Exam Vitals: Vital Signs Temp Pulse Pulse Resp BP BP Pulse Ox 03/25/19 07:30 58 L 03/25/19 05:36 98.9 F 58 L 16 123/80 93 L 03/24/19 19:45 97.7 F 55 L 123/78 96 03/24/19 18:00 109/81 03/24/19 16:00 109/58 85 L 03/24/19 15:42 109/58 99 03/24/19 15:28 97.8 F 62 20 103/54 94 L Intake and Output 03/24/19 03/25/19 03/25/19 22:59 06:59 14:59 Intake Total 20 160 Balance 20 160 Intake: Intake, IV Titration 20 160 Amount Sodium Chloride 0.9% 1, 20 160 000 ml @ 20 mls/hr IV . Q24H [facility] Rx#:[id number] Other: Weight 45.359 kg 45.359 kg PHYSICAL EXAMINATION: Patient is lying in the bed comfortably, no acute distress, awake alert and oriented but poor historian.. HEENT: Normocephalic. Neck is supple. Pupils reactive. Nostrils clear. Oral cavity is moist. Ears reveal no drainage. Neck reveals no JVD, carotid bruits, or thyromegaly. CHEST EXAMINATION: Trachea is central. Symmetrical expansion. Bibasilar diminished air entry. Lung salas clear to auscultation and percussion. CARDIAC: Normal S1, S2 with no gallops. No murmurs ABDOMEN: Soft. Bowel sounds normal. No organomegaly. No abdominal bruits. Extremities: reveal no edema. No clubbing or cyanosis Neurologically awake, alert, oriented x2-3 with well-coordinated movements. No focal deficits noted Skin: No rash or skin lesions. Psychiatric: Coperative. Nonsuicidal Musculoskeletal: No joint swelling or deformity. Right ankle minimal swelling and redness noted. Normal range of motion. Results CBC & Chem 7: 03/24/19 15:46 03/24/19 15:46 Labs: Abnormal Lab Results - Last 24 Hours (Table) 03/24/19 03/24/19 Range/Units 15:46 15:46 RBC 3.32 L (3.80-5.40) m/uL MCV 108.2 H (80.0-100.0) fL MCH 35.1 H (25.0-35.0) pg RDW 17.8 H (11.5-15.5) % Macrocytosis Marked A Sodium 134 L (137-145) mmol/L BUN 23 H (7-17) mg/dL Creatinine 1.08 H (0.52-1.04) mg/dL Calcium 8.3 L (8.4-10.2) mg/dL AST 72 H (14-36) U/L ALT 94 H (9-52) U/L Total Protein 5.2 L (6.3-8.2) g/dL Albumin 2.7 L (3.5-5.0) g/dL Thrombosis Risk Factor Assmnt - DVT/VTE Prophylaxis DVT/VTE Prophylaxis: Pharmacologic Prophylaxis ordered - Choose All That Apply Any of the Below Risk Factors Present?: No Other Risk Factors: Yes Each Risk Factor Represents 2 Points: Age 61-74 years Other congenital or acquired thrombophilia - If yes, enter type in comment: No Thrombosis Risk Factor Assessment Total Risk Factor Score: 2 Thrombosis Risk Factor Assessment Level: Low Risk Assessment and Plan Assessment: Generalized weakness likely due to recent chemotherapy and dehydration Multiple falls secondary to above Right ankle swelling and pain due to fall. No fracture noted. Monitor for any developing cellulitis. No leukocytosis. No fever no chills. Colon Cancer status post colon surgery about a year back. Currently on chemotherapy. Last chemotherapy 4 days back Paroxysmal atrial fibrillation. Currently in sinus rhythm. Patient has not been taking anticoagulations since October2018 Sinus bradycardia with heart rate 54 Hypovolemic hyponatremia Mild acute kidney injury Hypertension controlled DVT prophylaxis with heparin subcu Mild protein calorie malnutrition Cognitive impairment Ongoing nicotine addiction Plan: Patient was given IV fluids in the ER. Continue with pain management for right ankle pain. PT OT will be consulted. Patient was seen by cardiology and recommends to hold amiodarone and Eliquis until further evaluation. Metoprolol is on hold due to sinus bradycardia. Continue the telemetry monitoring. Encourage oral intake. Patient is a poor historian and was to be discharged home. Smoking cessation has been counseled. Time with Patient: Greater than 30
[2019-03-26] MEDS: ACETAMINOPHEN TAB 500 MG TAB PO PRN ×2 (00:51→19:37)
[2019-03-26 07:36] LABS: Potassium 3.7 mmol/L (3.5-5.1)
[2019-03-26 07:40] LABS: Anisocytosis Slight; HCT 34.4 % (34.0-46.0); HGB 11.3 gm/dL (11.4-16.0); MCH 34.8 pg (25.0-35.0); MCHC 32.8 g/dL (31.0-37.0); MCV 106.1 fL (80.0-100.0); Macrocytosis Marked; Mean Platelet Volume 8.5; Platelet Count 406 k/uL (150-450); RBC 3.24 m/uL (3.80-5.40); RDW 17.5 % (11.5-15.5); WBC 7.4 k/uL (3.8-10.6)
[2019-03-26 08:17] LABS: Eosinophils # (M) 0.15 k/uL (0-0.7); Hypochromasia (M) Present; Lymphocytes # (M) 1.33 k/uL (1.0-4.8); Monocytes # (M) 0.74 k/uL (0-1.0); Neutrophils # (M) 5.18 k/uL (1.3-7.7); Neutrophils % (M) 70 %; Nucleated Red Blood Cells 0 /100 WBC (0-0); Poikilocytosis (M) Present; RBC Fragments Present; Target Cells Present; Total Cells Counted 100
[2019-03-26] MEDS: MULTIVITAMINS, THERA 1 EACH TAB PO SCH (09:03)
[2019-03-26] MEDS: HEPARIN SODIUM,PORCINE 5,000 UNIT/ML 1 ML VIAL SQ SCH ×2 (09:03→20:42)
[2019-03-26] MEDS: CHOLECALCIFEROL 400 UNIT TAB PO SCH (09:03)
[2019-03-26] MEDS: FOLIC ACID 1 MG TAB PO SCH (09:03)
--- NOTE | 2019-03-26 10:32 | P.PN ---
Subjective Progress Note Date: 03/26/19 This is a pleasant 73-year-old female patient who follows with Dr. Serrano. Presented to the emergency department with symptoms of progressive fatigue, weakness and unsteadiness. She is brought in by her daughter. The patient is quite vague about her symptoms and is unsure of medication she is taking. She does have a history of paroxysmal atrial fibrillation and was initiated in April of last year on amiodarone and Eliquis but apparently her medication had not been refilled from the pharmacy and it is unclear if the patient is taking an antiarrhythmic or anticoagulant. The daughter has been asked to bring in her current medications from home. According to nursing staff this has not been done. Upon examination, patient is sitting up in a chair main complaint is of swelling in her right ankle which she says is improved. She denies complaints of palpitations, chest discomfort, PND,or orthopnea. She is maintaining sinus rhythm. Her labs and vital signs are stable. Objective - Vital Signs Vital signs: Vital Signs Temp 98.0 F 03/26/19 05:00 Pulse 56 L 03/26/19 05:00 Resp 16 03/26/19 05:00 BP 93/51 03/26/19 05:00 Pulse Ox 93 L 03/26/19 05:00 Intake & Output 03/25/19 03/26/19 03/26/19 18:59 06:59 18:59 Intake Total 750 Balance 750 Weight 45.359 kg Intake: Intake, IV Titration 160 Amount Sodium Chloride 0.9% 1, 160 000 ml @ 20 mls/hr IV . Q24H [facility] Rx#:[id number] Oral 590 Other: Voiding Method Bedside Commode # Voids 2 1 # Bowel Movements 2 2 - Exam PHYSICAL EXAMINATION: HEENT: Head is atraumatic, normocephalic. Pupils equal, round. Neck is supple. There is no elevated jugular venous pressure. No carotid bruit. HEART EXAMINATION: Heart sounds regular, S1 and S2 normal. No murmur or gallop heard. CHEST EXAMINATION: Lungs revealed decreased air exchange bilaterally. No chest wall tenderness is noted on palpation or with deep breathing. ABDOMEN: Soft, nontender. Bowel sounds are heard. No organomegaly noted. Colostomy in place. EXTREMITIES: 1+ peripheral pulses with evidence of +1 right ankle edema and no calf tenderness noted. NEUROLOGIC patient is awake, alert and oriented x3. She is a poor historian, vague in her history and answers.] . - Labs CBC & Chem 7: 03/26/19 07:10 03/26/19 07:10 Labs: Abnormal Lab Results - Last 24 Hours (Table) 03/26/19 03/26/19 Range/Units 07:10 07:10 RBC 3.24 L (3.80-5.40) m/uL Hgb 11.3 L (11.4-16.0) gm/dL MCV 106.1 H (80.0-100.0) fL RDW 17.5 H (11.5-15.5) % Macrocytosis Marked A Sodium 134 L (137-145) mmol/L Calcium 8.0 L (8.4-10.2) mg/dL Assessment and Plan Assessment: #1 generalized weakness and fatigue of unclear reason #2 history of paroxysmal atrial fibrillation, maintaining sinus rhythm #3 questionable compliance of medication and anticoagulation #4 history of chronic tobacco use #5 bradycardia Plan: From cardiology's perspective, we'll continue metoprolol and hold amiodarone and anticoagulation at this time. We'll continue to monitor heart rate. Continue to follow the patient. Further recommendations accordingly. PEDIATRIC PHYSICAL THERAPIST note has been reviewed, I agree with a documented findings and plan of care. Patient was seen and examined.
[2019-03-26] MEDS: SODIUM CHLORIDE 0.9% 1,000 ML IV SCH (20:43)
--- NOTE | 2019-03-26 23:18 | P.PN ---
Subjective Progress Note Date: 03/26/19 Principal diagnosis: Generalized weakness and falls Colon cancer with currently undergoing chemotherapy Patient is 73-year-old female with a known history of hypertension, paroxysmal atrial fibrillation and has not been taking Eliquis since October 2018, colon cancer with history of colectomy about a year back and is currently on chemotherapy, last dose about 4 days back and nicotine addiction came to ER with complaints of multiple falls and right foot swelling. Patient denied any complaints of chest pain or shortness of breath. Patient says that her medications are causing her symptoms and feeling dizzy. Patient says that she has been having falls and hurt her right ankle which is swollen. No history of joint swelling. Denied any fever or chills. No cough or sputum production. No nausea vomiting or abdominal pain or diarrhea. Patient is somewhat poor historian and has been noncompliant with her medications. EKG showed sinus bradycardia with heart rate 54 Chest x-ray showed chronic left basilar opacity seen in April 2018. Small pleural effusion and atelectasis versus recurrent pneumonia is a consideration. No leukocytosis CT head and cervical spine showed no acute intracranial abnormality and no acute fractures. Patient cannot recall her medications. 03/26/2019 Patient was admitted to the hospital due to generalized weakness and multiple falls. Patient denied any complaints of chest pain or shortness of breath. Tolerating oral diet. PT OT was consulted. Right ankle swelling is improving. Patient has been noncompliant with her medications. Amiodarone and Eliquis have been discontinued. Metoprolol is on hold due to bradycardia. Cardiology is following. Social work was consulted for discharge planning and to evaluate home situation. Patient has been afebrile. No leukocytosis. TSH and B12 levels within normal l imits. Current medications reviewed. Objective - Vital Signs Vital signs: Vital Signs Temp 97.9 F 03/26/19 13:00 Pulse 63 03/26/19 13:00 Resp 17 03/26/19 13:00 BP 126/56 03/26/19 13:00 Pulse Ox 92 L 03/26/19 13:00 Intake & Output 03/26/19 03/26/19 03/27/19 06:59 18:59 06:59 Intake Total 750 160 Balance 750 160 Intake: Intake, IV Titration 160 160 Amount Sodium Chloride 0.9% 1, 160 160 000 ml @ 20 mls/hr IV . Q24H [facility] Rx#:[id number] Oral 590 Other: Voiding Method Bedside Commode Toilet Bedside Commode # Voids 1 # Bowel Movements 2 - Exam Patient is lying in the bed comfortably, no acute distress, awake alert and oriented but poor historian.. HEENT: Normocephalic. Neck is supple. Pupils reactive. Nostrils clear. Oral cavity is moist. Ears reveal no drainage. Neck reveals no JVD, carotid bruits, or thyromegaly. CHEST EXAMINATION: Trachea is central. Symmetrical expansion. Bibasilar diminished air entry. Lung salas clear to auscultation and percussion. CARDIAC: Normal S1, S2 with no gallops. No murmurs ABDOMEN: Soft. Bowel sounds normal. No organomegaly. No abdominal bruits. Extremities: reveal no edema. No clubbing or cyanosis Neurologically awake, alert, oriented x2-3 with well-coordinated movements. No focal deficits noted Skin: No rash or skin lesions. Psychiatric: Coperative. Nonsuicidal Musculoskeletal: No joint swelling or deformity. Right ankle minimal swelling and redness noted. Normal range of motion. - Labs CBC & Chem 7: 03/26/19 07:10 03/26/19 07:10 Labs: Abnormal Lab Results - Last 24 Hours (Table) 03/26/19 03/26/19 Range/Units 07:10 07:10 RBC 3.24 L (3.80-5.40) m/uL Hgb 11.3 L (11.4-16.0) gm/dL MCV 106.1 H (80.0-100.0) fL RDW 17.5 H (11.5-15.5) % Macrocytosis Marked A Sodium 134 L (137-145) mmol/L Calcium 8.0 L (8.4-10.2) mg/dL Assessment and Plan Assessment: Generalized weakness likely due to recent chemotherapy and dehydration Multiple falls secondary to above Right ankle swelling and pain due to fall. No fracture noted. Monitor for any developing cellulitis. No leukocytosis. No fever no chills. Colon Cancer status post colon surgery about a year back. Currently on chemotherapy. Last chemotherapy 4 days back Paroxysmal atrial fibrillation. Currently in sinus rhythm. Patient has not been taking anticoagulations since October2018 Sinus bradycardia with heart rate 54 Hypovolemic hyponatremia Mild acute kidney injury Hypertension controlled DVT prophylaxis with heparin subcu Mild protein calorie malnutrition Cognitive impairment Ongoing nicotine addiction Plan: Patient was given IV fluids in the ER. Continue with pain management for right ankle pain. PT OT was consulted. Patient was seen by cardiology and recommends to hold amiodarone and Eliquis until further evaluation. Metoprolol is on hold due to sinus bradycardia. Continue the telemetry monitoring. Encourage oral intake. Patient is a poor historian and was to be discharged home. Smoking cessation has been counseled. Time with Patient: Greater than 30
[2019-03-27] MEDS: ACETAMINOPHEN TAB 500 MG TAB PO PRN ×2 (04:08→20:51)
[2019-03-27] MEDS: FOLIC ACID 1 MG TAB PO SCH (08:21)
[2019-03-27] MEDS: CHOLECALCIFEROL 400 UNIT TAB PO SCH (08:21)
[2019-03-27] MEDS: MULTIVITAMINS, THERA 1 EACH TAB PO SCH (08:21)
[2019-03-27] MEDS: HEPARIN SODIUM,PORCINE 5,000 UNIT/ML 1 ML VIAL SQ SCH ×2 (08:21→20:51)
--- NOTE | 2019-03-27 08:51 | P.PN ---
Subjective Patient is 73-year-old female with a known history of hypertension, paroxysmal atrial fibrillation and has not been taking Eliquis since October 2018, colon cancer with history of colectomy about a year back and is currently on chemotherapy, last dose about 4 days back and nicotine addiction came to ER with complaints of multiple falls and right foot swelling. Patient denied any complaints of chest pain or shortness of breath. Patient says that her medications are causing her symptoms and feeling dizzy. Patient says that she has been having falls and hurt her right ankle which is swollen. No history of joint swelling. Denied any fever or chills. No cough or sputum production. No nausea vomiting or abdominal pain or diarrhea. Patient is somewhat poor historian and has been noncompliant with her medications. EKG showed sinus bradycardia with heart rate 54 Chest x-ray showed chronic left basilar opacity seen in April 2018. Small pleural effusion and atelectasis versus recurrent pneumonia is a consideration. No leukocytosis CT head and cervical spine showed no acute intracranial abnormality and no acute fractures. Patient cannot recall her medications. 03/26/2019 Patient was admitted to the hospital due to generalized weakness and multiple falls. Patient denied any complaints of chest pain or shortness of breath. Tolerating oral diet. PT OT was consulted. Right ankle swelling is improving. Patient has been noncompliant with her medications. Amiodarone and Eliquis have been discontinued. Metoprolol is on hold due to bradycardia. Cardiology is following. Social work was consulted for discharge planning and to evaluate home situation. Patient has been afebrile. No leukocytosis. TSH and B12 levels within normal limits. 03/27/2019 Patient is fully awake and oriented, she denies chest pain or dyspnea, Vitas looks stable, blood pressure 05/03/2009, heart rate 63., Metoprolol is on hold. And cardiology team R following the case closely. During CT of the head there was suspicion of pneumonia and pleural effusion, we'll do a CAT scan of the chest without contrast. As per documentation patient has a caregiver via her children, and PT/OT recommended home with home health care which was ordered. Objective - Vital Signs Vital signs: Vital Signs Temp 96.3 F L 03/27/19 05:00 Pulse 63 03/27/19 05:00 Resp 16 03/27/19 05:00 BP 110/55 03/27/19 05:00 Pulse Ox 99 03/27/19 05:00 Intake & Output 03/26/19 03/27/19 03/27/19 18:59 06:59 18:59 Intake Total 260 590 Balance 260 590 Intake: Intake, IV Titration 160 Amount Sodium Chloride 0.9% 1, 160 000 ml @ 20 mls/hr IV . Q24H [facility] Rx#:[id number] Oral 100 590 Other: Voiding Method Toilet Toilet Bedside Commode Bedside Commode # Voids 1 # Bowel Movements 2 - Exam Patient is lying in the bed comfortably, no acute distress, awake alert and oriented but poor historian.. HEENT: Normocephalic. Neck is supple. Pupils reactive. Nostrils clear. Oral cavity is moist. Ears reveal no drainage. Neck reveals no JVD, carotid bruits, or thyromegaly. CHEST EXAMINATION: Trachea is central. Symmetrical expansion. Bibasilar diminished air entry. Lung salas clear to auscultation and percussion. CARDIAC: Normal S1, S2 with no gallops. No murmurs ABDOMEN: Soft. Bowel sounds normal. No organomegaly. No abdominal bruits. Extremities: reveal no edema. No clubbing or cyanosis Neurologically awake, alert, oriented x2-3 with well-coordinated movements. No focal deficits noted Skin: No rash or skin lesions. Psychiatric: Coperative. Nonsuicidal Musculoskeletal: No joint swelling or deformity. Right ankle minimal swelling and redness noted. Normal range of motion. - Labs CBC & Chem 7: 03/26/19 07:10 03/26/19 07:10 Assessment and Plan Assessment: Generalized weakness likely due to recent chemotherapy and dehydration Multiple falls secondary to above Right ankle swelling and pain due to fall. No fracture noted. Monitor for any developing cellulitis. No leukocytosis. No fever no chills. Colon Cancer status post colon surgery about a year back. Currently on chemotherapy. Last chemotherapy 4 days back Paroxysmal atrial fibrillation. Currently in sinus rhythm. Patient has not been taking anticoagulations since October2018 Sinus bradycardia with heart rate 54 Hypovolemic hyponatremia Mild acute kidney injury Hypertension controlled DVT prophylaxis with heparin subcu Mild protein calorie malnutrition Cognitive impairment Ongoing nicotine addiction P Plan: Patient was given IV fluids in the ER. Continue with pain management for right ankle pain. PT OT was consulted. Patient was seen by cardiology and recommends to hold amiodarone and Eliquis until further evaluation. Metoprolol is on hold due to sinus bradycardia. DO CT of the chest without contrast to rule out pneumonia Continue the telemetry monitoring. Encourage oral intake. Patient is a poor historian and was to be discharged home. Smoking cessation has been counseled.
[2019-03-27 09:36] LABS: Anisocytosis Slight; Basophils # (A) 0.1 k/uL (0-0.2); Basophils % (A) 1 %; Eosinophils # (A) 0.1 k/uL (0-0.7); Eosinophils % (A) 1 %; HCT 34.8 % (34.0-46.0); HGB 11.4 gm/dL (11.4-16.0); Hypochromasia Slight; Lymphocytes # (A) 1.2 k/uL (1.0-4.8); Lymphocytes % (A) 9 %; MCH 35.4 pg (25.0-35.0); MCHC 32.8 g/dL (31.0-37.0); MCV 107.8 fL (80.0-100.0); Macrocytosis Marked; Mean Platelet Volume 9.2; Monocytes # (A) 1.1 k/uL (0-1.0); Monocytes % (A) 8 %; Neutrophils # (A) 10.4 k/uL (1.3-7.7); Neutrophils % (A) 79 %; Platelet Count 399 k/uL (150-450); RBC 3.22 m/uL (3.80-5.40); RDW 17.5 % (11.5-15.5); WBC 13.1 k/uL (3.8-10.6)
[2019-03-27 09:44] LABS: ALT 69 U/L (9-52); AST 42 U/L (14-36); African American GFR (CKD) >90 (>60 ml/min/1.73 sqM); Albumin 2.4 g/dL (3.5-5.0); Alkaline Phosphatase 91 U/L (38-126); Anion Gap 8 mmol/L; Bilirubin, Delta 0.4 mg/dL (0.0-0.2); Bilirubin,Unconjugated 0.5 mg/dL (0.0-1.1); Blood Urea Nitrogen 16 mg/dL (7-17); Calcium 8.1 mg/dL (8.4-10.2); Carbon Dioxide 25 mmol/L (22-30); Chloride 103 mmol/L (98-107); Glucose 82 mg/dL (74-99); Non-African American GFR(CKD) 80 (>60 ml/min/1.73 sqM); Potassium 3.9 mmol/L (3.5-5.1); Sodium 136 mmol/L (137-145); Total Bilirubin 0.9 mg/dL (0.2-1.3); Total Protein 4.8 g/dL (6.3-8.2)
[2019-03-27] MEDS: NICOTINE 21MG/24HR PATCH TRANSDERM SCH (10:25)
[2019-03-27 10:37] LABS: Crenated RBC Present; Target Cells Present
[2019-03-27 10:38] LABS: Howell-Jolly Bodies Present
[2019-03-27 10:39] LABS: Poikilocytosis (M) Present
[2019-03-27 10:40] LABS: RBC Fragments Present
--- NOTE | 2019-03-27 11:18 | CT ---
EXAMINATION TYPE: CT chest wo con DATE OF EXAM: 03/27/2019 COMPARISON: 03/14/2019 HISTORY: Patient poor historian. CT DLP: [address] of the chest was performed with lung and mediastinal window settings submitted. The la ck of contrast limits evaluation of the vascular, mediastinal and parenchymal structures including th e upper abdomen. LUNGS: Increasing left pleural effusion with AP dimension of 3.6 cm. Basilar enhancing atelectatic ch omar noted underlying infiltrate difficult to exclude. Direct focal GRound glass infiltrate left uppe r lobe may reflect acute inflammatory process. MEDIASTINUM/CB: Thoracic aorta is of normal caliber with limited evaluation given lack of contrast . The heart is enlarged. No evidence for mediastinal mass. No lymph nodes greater than 1cm. Calci fied hilar mediastinal lymph nodes. Sliver pericardial effusion noted. UPPER ABDOMEN: No significant abnormality is seen. OTHER: No significant other abnormality. IMPRESSION: 1. Increasing left basilar pleural effusion with basilar atelectasis. Scattered areas of groundglass infiltrate may reflect acute inflammatory process. Underlying pneumonia not excluded. Correlate clin ically.
--- NOTE | 2019-03-27 11:20 | P.PN ---
Subjective This is a pleasantly confused 73-year-old female past medical history significant for paroxysmal atrial fibrillation, colon cancer s/p colostomy and chronic nicotine dependence. 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 In April 2018 she was in the hospital undergoing surgery and went into atrial fibrillation. At that time she was started on amiodarone and eliquis. Both of which she has not been taking for unknown reason. She is quite confused during my exam. Attempts made to contact her daughter were unsuccessful. She is seen and examined sitting up in bed in no acute distress. She denies chest pain, shortness of breath, dizziness or palpitations. She states she would like to go home today. Blood pressure 110/55 heart rate 63 afebrile and maintaining oxygen saturation on room air. Lopressor held on admission due to bradycardia. Not currently on telemetry. GENERAL: Well-appearing, well-nourished and in no acute distress. NECK: Supple without JVD or thyromegaly. LUNGS: Breath sounds clear to auscultation bilaterally. Respiration equal and unlabored. No wheezes, rales or rhonchi. Diminished bilaterally. HEART: Regular rate and rhythm with systolic ejection murmur at the left sternal border, no rubs or gallops. S1 and S2 heard. EXTREMITIES: Normal range of motion, no edema. No clubbing or cyanosis. Peripheral pulses intact. ASSESSMENT Generalized weakness and fatigue, history recently of multiple falls at home. Paroxysmal atrial fibrillation History of colon cancer, s/p colectomy and currently on chemotherapy Cognitive impairment, unknown etiology Acute kidney injury, resolved Chronic nicotine dependence PLAN Pt non-compliant with telemetry box. No tracings to review. Unable to reach family for medication clarification. Amiodarone is discontinued. Given recent increased falling would also continue to hold off on Eliquis. Risk of stroke remains there with paroxysmal a-fib. Continue current medical regimen. We will continue to follow as needed, please call with further questions or concerns. Nurse Practitioner note has been reviewed, I agree with a documented findings and plan of care. Patient was seen and examined. Objective - Vital Signs Vital signs: Vital Signs Temp 96.3 F L 03/27/19 05:00 Pulse 63 03/27/19 05:00 Resp 16 03/27/19 05:00 BP 110/55 03/27/19 05:00 Pulse Ox 99 03/27/19 05:00 Intake & Output 03/26/19 03/27/19 03/27/19 18:59 06:59 18:59 Intake Total 260 590 Balance 260 590 Intake: Intake, IV Titration 160 Amount Sodium Chloride 0.9% 1, 160 000 ml @ 20 mls/hr IV . Q24H [facility] Rx#:[id number] Oral 100 590 Other: Voiding Method Toilet Toilet Bedside Commode Bedside Commode # Voids 1 # Bowel Movements 2 - Labs CBC & Chem 7: 03/27/19 08:10 03/27/19 08:10
[2019-03-27] MEDS: LEVOFLOXACIN 500MG-D5W PMX 500 MG in DEXTROSE/WATER 1 100ML.BAG IVPB SCH (20:50)
[2019-03-27] MEDS: HYDROcodone/APAP 5-325MG 1 EACH TAB PO PRN (22:50)
[2019-03-27] MEDS: SODIUM CHLORIDE 0.9% 1,000 ML IV SCH (22:54)
[2019-03-28] MEDS ORDERED: HYDROcodone/APAP 5-325MG 1 EACH TAB ONE (04:39)
[2019-03-28] MEDS ORDERED: GABAPENTIN 100 MG CAP PO STA (08:26)
--- NOTE | 2019-03-28 08:28 | P.PN ---
Subjective Patient is 73-year-old female with a known history of hypertension, paroxysmal atrial fibrillation and has not been taking Eliquis since October 2018, colon cancer with history of colectomy about a year back and is currently on chemotherapy, last dose about 4 days back and nicotine addiction came to ER with complaints of multiple falls and right foot swelling. Patient denied any complaints of chest pain or shortness of breath. Patient says that her medications are causing her symptoms and feeling dizzy. Patient says that she has been having falls and hurt her right ankle which is swollen. No history of joint swelling. Denied any fever or chills. No cough or sputum production. No nausea vomiting or abdominal pain or diarrhea. Patient is somewhat poor historian and has been noncompliant with her medications. EKG showed sinus bradycardia with heart rate 54 Chest x-ray showed chronic left basilar opacity seen in April 2018. Small pleural effusion and atelectasis versus recurrent pneumonia is a consideration. No leukocytosis CT head and cervical spine showed no acute intracranial abnormality and no acute fractures. Patient cannot recall her medications. 03/26/2019 Patient was admitted to the hospital due to generalized weakness and multiple falls. Patient denied any complaints of chest pain or shortness of breath. Tolerating oral diet. PT OT was consulted. Right ankle swelling is improving. Patient has been noncompliant with her medications. Amiodarone and Eliquis have been discontinued. Metoprolol is on hold due to bradycardia. Cardiology is following. Social work was consulted for discharge planning and to evaluate home situation. Patient has been afebrile. No leukocytosis. TSH and B12 levels within normal limits. 03/27/2019 Patient is fully awake and oriented, she denies chest pain or dyspnea, Vitas looks stable, blood pressure 05/03/2009/55, heart rate 63., Metoprolol is on hold. And cardiology team R following the case closely. During CT of the head there was suspicion of pneumonia and pleural effusion, we'll do a CAT scan of the chest without contrast. As per documentation patient has a caregiver via her children, and PT/OT recommended home with home health care which was ordered. 03/28/2019 Patient is awake, she's hard hearing, she has some coughing and tachypnea. Deep CAT scan of the chest from yesterday showing worsening pneumonia and pleural effusion. Pulmonary team were consulted. She is saturating 93% on room air. Also she has leukocytosis of 13.1 K from yesterday, repeat Pending. Patient Was Started on Levaquin Yesterday. Patient Is Eager to Go Home Probably She Has Some Smoking Urge, Continue with Nicotine Patch Objective - Vital Signs Vital signs: Vital Signs Temp 98.3 F 03/28/19 05:41 Pulse 77 03/28/19 05:41 Resp 20 03/28/19 05:41 BP 111/64 03/28/19 05:41 Pulse Ox 93 L 03/28/19 05:41 Intake & Output 03/27/19 03/28/19 03/28/19 18:59 06:59 18:59 Intake Total 1390 1570 Output Total 200 Balance 1390 1370 Intake: Intake, IV Titration 240 Amount Sodium Chloride 0.9% 1, 240 000 ml @ 20 mls/hr IV . Q24H [facility] Rx#:[id number] Oral 1150 1570 Output: Urine 200 Other: Voiding Method Toilet Toilet Bedside Commode Bedside Commode # Voids 2 1 # Bowel Movements 1 - Exam Patient is lying in the bed comfortably, no acute distress, awake alert and oriented but poor historian.. HEENT: Normocephalic. Neck is supple. Pupils reactive. Nostrils clear. Oral cavity is moist. Ears reveal no drainage. Neck reveals no JVD, carotid bruits, or thyromegaly. CHEST EXAMINATION: Trachea is central. Symmetrical expansion. Bibasilar diminished air entry. Lung salas clear to auscultation and percussion. CARDIAC: Normal S1, S2 with no gallops. No murmurs ABDOMEN: Soft. Bowel sounds normal. No organomegaly. No abdominal bruits. Extremities: reveal no edema. No clubbing or cyanosis Neurologically awake, alert, oriented x2-3 with well-coordinated movements. No focal deficits noted Skin: No rash or skin lesions. Psychiatric: Coperative. Nonsuicidal Musculoskeletal: No joint swelling or deformity. Right ankle minimal swelling and redness noted. Normal range of motion. - Labs CBC & Chem 7: 03/27/19 08:10 03/27/19 08:10 Labs: Abnormal Lab Results - Last 24 Hours (Table) 03/27/19 03/27/19 Range/Units 08:10 08:10 WBC 13.1 H (3.8-10.6) k/uL RBC 3.22 L (3.80-5.40) m/uL MCV 107.8 H (80.0-100.0) fL MCH 35.4 H (25.0-35.0) pg RDW 17.5 H (11.5-15.5) % Neutrophils # 10.4 H (1.3-7.7) k/uL Monocytes # 1.1 H (0-1.0) k/uL Macrocytosis Marked A Sodium 136 L (137-145) mmol/L Calcium 8.1 L (8.4-10.2) mg/dL Delta Bilirubin 0.4 H (0.0-0.2) mg/dL AST 42 H (14-36) U/L ALT 69 H (9-52) U/L Total Protein 4.8 L (6.3-8.2) g/dL Albumin 2.4 L (3.5-5.0) g/dL Assessment and Plan Assessment: Generalized weakness likely due to recent chemotherapy and dehydration Multiple falls secondary to above Left lower lobe pneumonia and pleural effusion Right ankle swelling and pain due to fall. No fracture noted. Monitor for any developing cellulitis. No leukocytosis. No fever no chills. Colon Cancer status post colon surgery about a year back. Currently on chemotherapy. Last chemotherapy 4 days back Paroxysmal atrial fibrillation. Currently in sinus rhythm. Patient has not been taking anticoagulations since October2018 Sinus bradycardia with heart rate 54 Hypovolemic hyponatremia Mild acute kidney injury Hypertension controlled DVT prophylaxis with heparin subcu Mild protein calorie malnutrition Cognitive impairment Ongoing nicotine addiction P Plan: Patient was given IV fluids in the ER. Continue with pain management for right ankle pain. Continue with Levaquin. Call pulmonary consult PT OT was consulted. Patient was seen by cardiology and recommends to hold amiodarone and Eliquis until further evaluation. Metoprolol is on hold due to sinus nava cardia. Continue the telemetry monitoring. Encourage oral intake. Patient is a poor historian and was to be discharged home. Smoking cessation has been counseled.
[2019-03-28] MEDS: FOLIC ACID 1 MG TAB PO SCH (08:51)
[2019-03-28] MEDS: CHOLECALCIFEROL 400 UNIT TAB PO SCH (08:51)
[2019-03-28] MEDS: HEPARIN SODIUM,PORCINE 5,000 UNIT/ML 1 ML VIAL SQ SCH ×2 (08:52→20:47)
[2019-03-28] MEDS: NICOTINE 21MG/24HR PATCH TRANSDERM SCH (08:52)
[2019-03-28] MEDS: MULTIVITAMINS, THERA 1 EACH TAB PO SCH (08:52)
[2019-03-28 10:27] LABS: ALT 66 U/L (9-52); AST 43 U/L (14-36); African American GFR (CKD) >90 (>60 ml/min/1.73 sqM); Albumin 2.4 g/dL (3.5-5.0); Alkaline Phosphatase 107 U/L (38-126); Anion Gap 6 mmol/L; Bilirubin, Delta 0.7 mg/dL (0.0-0.2); Bilirubin,Unconjugated 0.7 mg/dL (0.0-1.1); Calcium 8.3 mg/dL (8.4-10.2); Carbon Dioxide 27 mmol/L (22-30); Chloride 100 mmol/L (98-107); Glucose 102 mg/dL (74-99); Non-African American GFR(CKD) 87 (>60 ml/min/1.73 sqM); Sodium 133 mmol/L (137-145); Total Bilirubin 1.4 mg/dL (0.2-1.3); Total Protein 4.8 g/dL (6.3-8.2)
--- NOTE | 2019-03-28 10:52 | P.CNPUL ---
History of Present Illness Consult date: 03/28/19 Reason for consult: pneumonia History of present illness: 73-year-old male patient came with generalized weakness, multiple falls and a right foot swelling. She denied having any shortness of breath or chest pain. She is a chronic cigarette smoker and she is currently smoking around 8 cigarettes a day. She has COPD. She has history of atrial fibrillation and she has been maintained on long-term anticoagulation with Eliquis. She has previous history of colon cancer and previous colectomy post chemotherapy. She has hypertension. The patient was found to have a left basilar opacity on the chest x-ray. There was also small left-sided pleural effusion and she had no leukocytosis. CAT scan of the brain and cervical spine showed no acute abnormalities. The patient continued to have generalized weakness. The patient denied having any chest pain or shortness of breath. On yesterday's evaluation, the patient had some increased cough and tachypnea. A repeat CAT scan of the chest was done that showed left lower lobe consolidation and development of the pleural effusion that was a new finding compared to the earlier study. For that reason she was placed on Levaquin. Currently she is unable to bring up any sputum. No chest pain. She is on room air oxygen. Review of Systems Constitutional: Reports poor appetite, Reports weakness, Reports weight loss Eyes: denies blurred vision, denies bulging eye, denies decreased vision Ears: bilateral: decreased hearing, deny: ear discharge, earache, tinnitus Ears, nose, mouth and throat: Reports as per HPI Breasts: absent: as per HPI, change in shape, gynecomastia, masses, nipple discharge, pain, skin changes, swelling Cardiovascular: Reports decreased exercise tolerance, Reports dyspnea on exertion Respiratory: Reports cough, Reports dyspnea Gastrointestinal: Reports as per HPI (History of colon cancer and diverting colostomy) Genitourinary: Reports as per HPI Menstruation: Reports as per HPI Musculoskeletal: Reports frequent falls, Reports muscle weakness Musculoskeletal: right: as per HPI, absent: ankle pain, ankle stiffness, ankle swelling Integumentary: Reports as per HPI Neurological: Reports as per HPI, Reports weakness Psychiatric: Reports as per HPI Endocrine: Reports as per HPI, Reports fatigue Hematologic/Lymphatic: Reports as per HPI Allergic/Immunologic: Reports as per HPI Past Medical History Past Medical History: Cancer, COPD, Hypertension Additional Past Medical History / Comment(s): colon cancer with colostomy ,Paro xysmal atrial fibrillation, hypertension, cognitive impairment, mild protein calorie malnutrition, smoker History of Any Multi-Drug Resistant Organisms: None Reported Past Surgical History: Bowel Resection, Section Additional Past Surgical History / Comment(s): Cataracts, a left colectomy with end colostomy, with splenectomy, partial omentectomy Past Anesthesia/Blood Transfusion Reactions: No Reported Reaction Past Psychological History: No Psychological Hx Reported Smoking Status: Current every day smoker Past Alcohol Use History: None Reported Past Drug Use History: None Reported - Past Family History Mother Family Medical History: No Reported History Medications and Allergies Home Medications Medication Instructions Recorded Confirmed Type Oxybutynin Chloride [Ditropan XL] 10 mg PO DAILY 04/10/18 03/24/19 History Amiodarone [Cordarone] 200 mg PO BID tab 04/22/18 03/24/19 Rx Metoprolol Tartrate [Lopressor] 25 mg PO BID tab 04/22/18 03/24/19 Rx Potassium Chloride ER [K-Dur 10] 10 meq PO DAILY #30 tab 04/22/18 03/24/19 Rx Cholecalciferol [Vitamin D3] 400 unit PO DAILY 03/24/19 03/24/19 History Meloxicam [Mobic] 7.5 mg PO BID PRN 03/24/19 03/24/19 History Triamcinolone 0.1% Cream [Kenalog 1 applic TOPICAL BID 03/24/19 03/24/19 History 0.1% Cream] Allergies Allergy/AdvReac Type Severity Reaction Status Date / Time No Known Allergies Allergy Verified 03/24/19 15:31 Physical Exam Vitals: Vital Signs Temp Pulse Pulse Resp BP Pulse Ox 03/28/19 05:41 98.3 F 77 20 111/64 93 L 03/27/19 22:37 81 63 20 03/27/19 21:00 98.2 F 81 20 120/68 93 L 03/27/19 16:00 63 16 03/27/19 12:13 97.9 F 63 16 98/56 94 L Intake and Output 03/27/19 03/28/19 03/28/19 22:59 06:59 14:59 Intake Total 1570 Output Total 200 Balance 1370 Intake: Oral 1570 Output: Urine 200 Other: Voiding Method Toilet Bedside Commode # Voids 1 # Bowel Movements 1 Patient is lying in the bed comfortably, no acute distress, awake alert and oriented but poor historian.. She looks quite malnourished and cachectic. She is very hard of hearing. HEENT: Normocephalic. Neck is supple. Pupils reactive. Nostrils clear. Oral cavity is moist. Ears reveal no drainage. Neck reveals no JVD, carotid bruits, or thyromegaly. CHEST EXAMINATION: Trachea is central. Symmetrical expansion. Bibasilar diminished air entry. Lung sounds are markedly diminished bilaterally especially lung bases more so on the left compared to the right. She has a barrel chest. CARDIAC: Normal S1, S2 with no gallops. No murmurs ABDOMEN: Soft. Bowel sounds normal. No organomegaly. No abdominal bruits. Extremities: reveal no edema. No clubbing or cyanosis Neurologically awake, alert, oriented x2-3 with well-coordinated movements. No focal deficits noted Skin: No rash or skin lesions. Psychiatric: Coperative. Nonsuicidal Musculoskeletal: No joint swelling or deformity. Right ankle minimal swelling and redness noted. Normal range of motion. Results - Laboratory Findings CBC and BMP: 03/27/19 08:10 03/27/19 08:10 PT/INR, D-dimer PT 11.3 sec (9.0-12.0) 03/24/19 15:46 INR 1.1 (<1.2) 03/24/19 15:46 Abnormal lab findings: Abnormal Labs 03/24/19 03/24/19 03/26/19 15:46 15:46 07:10 WBC RBC 3.32 L Hgb MCV 108.2 H MCH 35.1 H RDW 17.8 H Neutrophils # Monocytes # Macrocytosis Marked A Sodium 134 L 134 L BUN 23 H Creatinine 1.08 H Calcium 8.3 L 8.0 L Delta Bilirubin AST 72 H ALT 94 H Total Protein 5.2 L Albumin 2.7 L 03/26/19 03/27/19 03/27/19 07:10 08:10 08:10 WBC 13.1 H RBC 3.24 L 3.22 L Hgb 11.3 L MCV 106.1 H 107.8 H MCH 35.4 H RDW 17.5 H 17.5 H Neutrophils # 10.4 H Monocytes # 1.1 H Macrocytosis Marked A Marked A Sodium 136 L BUN Creatinine Calcium 8.1 L Delta Bilirubin 0.4 H AST 42 H ALT 69 H Total Protein 4.8 L Albumin 2.4 L - Diagnostic Findings Chest x-ray: image reviewed CT scan - chest: image reviewed Assessment and Plan Plan: 1 left lower lobe pneumonia currently on Levaquin. The patient has consolid ation of left lung base which is of a new onset in addition to a small left- sided pleural effusion. 2 colon cancer with a previous colectomy and diverting colostomy. The patient has undergone chemotherapy 3 multiple falls with generalized weakness and malnutrition 4 paroxysmal atrial fibrillation 5 hypovolemic hyponatremia, improved 6 acute kidney injury 7 hypertension 8 protein calorie malnutrition 9 obesity 10 history of smoking Plan Agree on Levaquin for now. Aspiration precautions. Provide the patient incentive spirometer. Smoking cessation counseling was done. Put the patient on routine albuterol and Atrovent nebulized treatments 4 times a day [id number]. We'll continue to follow
[2019-03-28 10:57] LABS: Blood Urea Nitrogen 17 mg/dL (7-17)
[2019-03-28 11:46] LABS: Anisocytosis Slight; Basophils # (A) 0.1 k/uL (0-0.2); Basophils % (A) 1 %; Eosinophils % (A) 0 %; HCT 37.5 % (34.0-46.0); HGB 11.6 gm/dL (11.4-16.0); Hypochromasia Slight; Lymphocytes # (A) 1.2 k/uL (1.0-4.8); Lymphocytes % (A) 9 %; MCH 34.3 pg (25.0-35.0); MCV 110.4 fL (80.0-100.0); Macrocytosis Marked; Monocytes % (A) 7 %; Neutrophils # (A) 11.6 k/uL (1.3-7.7); Neutrophils % (A) 81 %; Platelet Count 347 k/uL (150-450); RBC 3.39 m/uL (3.80-5.40); RDW 17.4 % (11.5-15.5); WBC 14.3 k/uL (3.8-10.6)
[2019-03-28 13:33] LABS: Crenated RBC Present
[2019-03-28 13:34] LABS: Howell-Jolly Bodies Present; RBC Fragments Present
[2019-03-28] MEDS: HYDROcodone/APAP 5-325MG 1 EACH TAB PO PRN (17:16)
[2019-03-28] MEDS: LEVOFLOXACIN 500MG-D5W PMX 500 MG in DEXTROSE/WATER 1 100ML.BAG IVPB SCH (20:47)
[2019-03-28] MEDS: SODIUM CHLORIDE 0.9% 1,000 ML IV SCH (20:48)
[2019-03-29] MEDS: HYDROcodone/APAP 5-325MG 1 EACH TAB PO PRN ×2 (01:41→10:46)
[2019-03-29 08:26] LABS: ALT 64 U/L (9-52); AST 42 U/L (14-36); African American GFR (CKD) >90 (>60 ml/min/1.73 sqM); Albumin 2.3 g/dL (3.5-5.0); Alkaline Phosphatase 113 U/L (38-126); Anion Gap 6 mmol/L; Bilirubin, Delta 0.6 mg/dL (0.0-0.2); Bilirubin,Unconjugated 0.5 mg/dL (0.0-1.1); Blood Urea Nitrogen 18 mg/dL (7-17); Calcium 8.2 mg/dL (8.4-10.2); Carbon Dioxide 26 mmol/L (22-30); Chloride 101 mmol/L (98-107); Glucose 85 mg/dL (74-99); Non-African American GFR(CKD) 89 (>60 ml/min/1.73 sqM); Potassium 3.7 mmol/L (3.5-5.1); Sodium 133 mmol/L (137-145); Total Bilirubin 1.1 mg/dL (0.2-1.3); Total Protein 4.6 g/dL (6.3-8.2)
[2019-03-29 09:10] LABS: Anisocytosis Slight; Basophils # (A) 0.1 k/uL (0-0.2); Basophils % (A) 1 %; Eosinophils # (A) 0.2 k/uL (0-0.7); Eosinophils % (A) 2 %; HCT 33.3 % (34.0-46.0); HGB 10.7 gm/dL (11.4-16.0); Hypochromasia Slight; Lymphocytes # (A) 1.6 k/uL (1.0-4.8); Lymphocytes % (A) 15 %; MCH 34.7 pg (25.0-35.0); MCHC 32.2 g/dL (31.0-37.0); MCV 107.7 fL (80.0-100.0); Macrocytosis Marked; Mean Platelet Volume 9.1; Monocytes # (A) 0.9 k/uL (0-1.0); Monocytes % (A) 8 %; Neutrophils # (A) 8.3 k/uL (1.3-7.7); Neutrophils % (A) 74 %; Platelet Count 344 k/uL (150-450); RBC 3.09 m/uL (3.80-5.40); RDW 17.3 % (11.5-15.5); WBC 11.2 k/uL (3.8-10.6)
[2019-03-29] MEDS: CHOLECALCIFEROL 400 UNIT TAB PO SCH (10:19)
[2019-03-29] MEDS: HEPARIN SODIUM,PORCINE 5,000 UNIT/ML 1 ML VIAL SQ SCH (10:19)
[2019-03-29] MEDS: MULTIVITAMINS, THERA 1 EACH TAB PO SCH (10:20)
[2019-03-29] MEDS: FOLIC ACID 1 MG TAB PO SCH (10:20)
[2019-03-29] MEDS: NICOTINE 21MG/24HR PATCH TRANSDERM SCH (10:20)
[2019-03-29 11:21] LABS: Crenated RBC Present; Howell-Jolly Bodies Present; Poikilocytosis (M) Present; RBC Fragments Present
[2019-03-29 11:37] VITALS: BP 101/56; PULSE 69; RESP 16; TEMP 97.7
[2019-03-29] MEDS ORDERED: LEVOFLOXACIN 500 MG TAB PO SCH (12:00)
--- NOTE | 2019-03-29 14:06 | P.PN ---
Subjective Progress Note Date: 03/29/19 73-year-old male patient came with generalized weakness, multiple falls and a r ight foot swelling. She denied having any shortness of breath or chest pain. She is a chronic cigarette smoker and she is currently smoking around 8 cigarettes a day. She has COPD. She has history of atrial fibrillation and she has been maintained on long-term anticoagulation with Eliquis. She has previous history of colon cancer and previous colectomy post chemotherapy. She has hypertension. The patient was found to have a left basilar opacity on the chest x-ray. There was also small left-sided pleural effusion and she had no leukocytosis. CAT scan of the brain and cervical spine showed no acute abnormalities. The patient continued to have generalized weakness. The patient denied having any chest pain or shortness of breath. On yesterday's evaluation, the patient had some increased cough and tachypnea. A repeat CAT scan of the chest was done that showed left lower lobe consolidation and development of the pleural effusion that was a new finding compared to the earlier study. For that reason she was placed on Levaquin. Currently she is unable to bring up any sputum. No chest pain. She is on room air oxygen. Today's evaluation of 03/29/2019 I'm seeing the patient for a follow-up. The patient is on room air oxygen. No significant respiratory distress. No cough or sputum production. She is taking Levaquin regarding the possibility of a left lower lobe pneumonia. No nausea. No vomiting. No abdominal pain. No chest pain. No other events overnight. She is status post colectomy for an underlying colon cancer and she has a diverticular colostomy. She also takes long-term and coagulation for atrial fibrillation. Objective - Vital Signs Vital signs: Vital Signs Temp 97.7 F 03/29/19 11:17 Pulse 69 03/29/19 11:17 Resp 16 03/29/19 11:17 BP 101/56 03/29/19 11:17 Pulse Ox 92 L 03/29/19 11:17 Intake & Output 03/28/19 03/29/19 03/29/19 18:59 06:59 18:59 Intake Total 300 Balance 300 Weight 45.359 kg Intake: Oral 300 Other: Voiding Method Toilet Toilet Toilet Bedside Commode Bedside Commode Bedside Commode # Voids 3 2 1 - Exam Patient is lying in the bed comfortably, no acute distress, awake alert and oriented but poor historian.. She looks quite malnourished and cachectic. She i s very hard of hearing. HEENT: Normocephalic. Neck is supple. Pupils reactive. Nostrils clear. Oral cavity is moist. Ears reveal no drainage. Neck reveals no JVD, carotid bruits, or thyromegaly. CHEST EXAMINATION: Trachea is central. Symmetrical expansion. Bibasilar diminished air entry. Lung sounds are markedly diminished bilaterally especially lung bases more so on the left compared to the right. She has a barrel chest. CARDIAC: Normal S1, S2 with no gallops. No murmurs ABDOMEN: Soft. Bowel sounds normal. No organomegaly. No abdominal bruits. Extremities: reveal no edema. No clubbing or cyanosis Neurologically awake, alert, oriented x2-3 with well-coordinated movements. No focal deficits noted Skin: No rash or skin lesions. Psychiatric: Coperative. Nonsuicidal Musculoskeletal: No joint swelling or deformity. Right ankle minimal swelling and redness noted. Normal range of motion. - Labs CBC & Chem 7: 03/29/19 07:41 03/29/19 07:41 Labs: Abnormal Lab Results - Last 24 Hours (Table) 03/29/19 03/29/19 Range/Units 07:41 07:41 WBC 11.2 H (3.8-10.6) k/uL RBC 3.09 L (3.80-5.40) m/uL Hgb 10.7 L (11.4-16.0) gm/dL Hct 33.3 L (34.0-46.0) % MCV 107.7 H (80.0-100.0) fL RDW 17.3 H (11.5-15.5) % Neutrophils # 8.3 H (1.3-7.7) k/uL Macrocytosis Marked A Sodium 133 L (137-145) mmol/L BUN 18 H (7-17) mg/dL Calcium 8.2 L (8.4-10.2) mg/dL Delta Bilirubin 0.6 H (0.0-0.2) mg/dL AST 42 H (14-36) U/L ALT 64 H (9-52) U/L Total Protein 4.6 L (6.3-8.2) g/dL Albumin 2.3 L (3.5-5.0) g/dL Assessment and Plan Plan: 1 left lower lobe pneumonia currently on Levaquin. The patient has consolidation of left lung base which is of a new onset in addition to a small left-sided pleural effusion. 2 colon cancer with a previous colectomy and diverting colostomy. The patient has undergone chemotherapy 3 multiple falls with generalized weakness and malnutrition 4 paroxysmal atrial fibrillation 5 hypovolemic hyponatremia, improved 6 acute kidney injury, recovered 7 hypertension 8 protein calorie malnutrition 9 obesity 10 history of smoking Plan Treat the course of Levaquin. Stable for discharge. Outpatient follow-up regarding this left lower lobe pneumonia.
--- NOTE | 2019-03-30 10:24 | P.DS ---
Providers Date of admission: 03/24/19 18:05 Expected date of discharge: 03/29/19 Attending physician: Lauren Kruse Consults: 03/25/19 11:40 Consult Physician Routine Consulting Provider: Doreen Moralez Consult Reason/Comments: cardiac history Do you want consulting provider notified?: Yes 03/27/19 18:03 Consult Physician Routine Consulting Provider: Aalyiah Elias Consult Reason/Comments: pna Do you want consulting provider notified?: Yes Primary care physician: Leta Chino Hospital Course: Final diagnosis Generalized weakness likely due to recent chemotherapy and dehydration Multiple falls secondary to above Left lower lobe pneumonia and pleural effusion Right ankle swelling and pain due to fall. No fracture noted. Colon Cancer status post colon surgery Paroxysmal atrial fibrillation. Sinus bradycardia Hypovolemic hyponatremia Mild acute kidney injury Hypertension controlled DVT prophylaxis Mild protein calorie malnutrition Cognitive impairment Ongoing nicotine addiction Discharge disposition Patient is being discharged in a stable condition with guarded prognosis to home and will follow up with oncology, primary care provider, and pulmonary in the outpatient setting upon discharge. Patient will continue on a short course of oral antibiotics in the form of Levaquin for one week. Total time taken is 35 minutes. History of present illness Patient is 73-year-old female with a known history of hypertension, paroxysmal atrial fibrillation and has not been taking Eliquis since October 2018, colon [facility] er with history of colectomy about a year back and is currently on chemotherapy, last dose about 4 days back and nicotine addiction came to ER with complaints of multiple falls and right foot swelling. Patient denied any complaints of chest pain or shortness of breath. Patient says that her medications are causing her symptoms and feeling dizzy. Patient says that she has been having falls and h urt her right ankle which is swollen. No history of joint swelling. Denied any fever or chills. No cough or sputum production. No nausea vomiting or abdominal pain or diarrhea. Patient is somewhat poor historian and has been noncompliant with her medications. EKG showed sinus bradycardia with heart rate 54 Chest x-ray showed chronic left basilar opacity seen in April 2018. Small pleural effusion and atelectasis versus recurrent pneumonia is a consideration. No leukocytosis CT head and cervical spine showed no acute intracranial abnormality and no acute fractures. Patient cannot recall her medications. 03/26/2019 Patient was admitted to the hospital due to generalized weakness and multiple falls. Patient denied any complaints of chest pain or shortness of breath. Tolerating oral diet. PT OT was consulted. Right ankle swelling is improving. Patient has been noncompliant with her medications. Amiodarone and Eliquis have been discontinued. Metoprolol is on hold due to bradycardia. Cardiology is following. Social work was consulted for discharge planning and to evaluate home situation. Patient has been afebrile. No leukocytosis. TSH and B12 levels within normal limits. 03/27/2019 Patient is fully awake and oriented, she denies chest pain or dyspnea, Vitas looks stable, blood pressure 05/03/2009/, heart rate 63., Metoprolol is on hold. And cardiology team R following the case closely. During CT of the head there was suspicion of pneumonia and pleural effusion, we'll do a CAT scan of the chest without contrast. As per documentation patient has a caregiver via her children, and PT/OT recommended home with home health care which was ordered. 03/28/2019 Patient is awake, she's hard hearing, she has some coughing and tachypnea. Deep CAT scan of the chest from yesterday showing worsening pneumonia and pleural effusion. Pulmonary team were consulted. She is saturating 93% on room air. Also she has leukocytosis of 13.1 K from yesterday, repeat Pending. Patient Was Started on Levaquin Yesterday. Patient Is Eager to Go Home Probably She Has Some Smoking Urge, Continue with Nicotine Patch On exam vitals are stable. Cardio S1, S2 are present. Respiratory system shows diminished breath sounds at the bases with some mild expiratory wheezing noted. Abdomen is soft, thin, and non-tender. Nervous system shows no focal deficits. Please refer to medication reconciliation sheet for a list of medications. Patient Condition at Discharge: Fair Plan - Discharge Summary Discharge Rx Participant: No New Discharge Prescriptions: New Folic Acid 1 mg PO DAILY 30 Days #30 tab Levofloxacin [Levaquin] 500 mg PO DAILY 7 Days #7 tab Multivitamins, Thera [Multivitamin (formulary)] 1 each PO DAILY 30 Days #30 tab Continue Oxybutynin Chloride [Ditropan XL] 10 mg PO DAILY Potassium Chloride ER [K-Dur 10] 10 meq PO DAILY #30 tab Triamcinolone 0.1% Cream [Kenalog 0.1% Cream] 1 applic TOPICAL BID Cholecalciferol [Vitamin D3] 400 unit PO DAILY Meloxicam [Mobic] 7.5 mg PO BID PRN PRN Reason: Pain Discontinued Amiodarone [Cordarone] 200 mg PO BID tab Metoprolol Tartrate [Lopressor] 25 mg PO BID tab Discharge Medication List Oxybutynin Chloride [Ditropan XL] 10 mg PO DAILY 04/10/18 [History] Potassium Chloride ER [K-Dur 10] 10 meq PO DAILY #30 tab 04/22/18 [Rx] Cholecalciferol [Vitamin D3] 400 unit PO DAILY 03/24/19 [History] Meloxicam [Mobic] 7.5 mg PO BID PRN 03/24/19 [History] Triamcinolone 0.1% Cream [Kenalog 0.1% Cream] 1 applic TOPICAL BID 03/24/19 [History] Folic Acid 1 mg PO DAILY 30 Days #30 tab 03/29/19 [Rx] Levofloxacin [Levaquin] 500 mg PO DAILY 7 Days #7 tab 03/29/19 [Rx] Multivitamins, Thera [Multivitamin (formulary)] 1 each PO DAILY 30 Days #30 tab 03/29/19 [Rx] Follow up Appointment(s)/Referral(s): Lulú Gillette MD [Primary Care Provider] - 04/05/19 1:00 pm [facility], [NON-STAFF] - 1 Week Aaliyah Elias MD [STAFF PHYSICIAN] - 04/14/19 3:00 pm Patient Instructions/Handouts: Folic Acid (By mouth), Multivitamins, Adult Formula (By mouth), Levofloxacin (By mouth), How to Stop Smoking (DC), How to Use an Incentive Spirometer (DC), Cigarette Smoking and Your Health (GEN), COPD (Chronic Obstructive Pulmonary Disease) (DC), Weakness (DC), Fall Prevention (DC), Pneumonia (DC) Activity/Diet/Wound Care/Special Instructions: Activity Limited until follow-up Continue taking antibiotics until finished Avoid tobacco use Discharge Disposition: HOME WITH HOME HEALTH SERVICES
== END 2019-03-29 15:38 | disposition home health service (06) | DRG 640 ==
LOC: EC 15:26 → 3NMEDONC 18:05 → OBSVTOIN 18:05 → 3NMEDONC 03-26 07:35
PROVIDERS: ADMIT Hospitalist; ATTEND Hospitalist
DX: E86.0 Dehydration (principal); J18.9 Pneumonia, unspecified organism; C18.9 Malignant neoplasm of colon, unspecified; E44.1 Mild protein-calorie malnutrition; J44.0 Chronic obstructive pulmonary disease with (acute) lower respiratory infection; J91.8 Pleural effusion in other conditions classified elsewhere; N17.9 Acute kidney failure, unspecified; T45.1X5A Adverse effect of antineoplastic and immunosuppressive drugs, initial encounter; E56.9 Vitamin deficiency, unspecified; E86.1 Hypovolemia; E87.1 Hypo-osmolality and hyponatremia; Z71.6 Tobacco abuse counseling; I10 Essential (primary) hypertension; I48.0 Paroxysmal atrial fibrillation; R29.6 Repeated falls; M25.473 Effusion, unspecified ankle; W19.XXXA Unspecified fall, initial encounter; Z91.81 History of falling; D75.89 Other specified diseases of blood and blood-forming organs; F17.210 Nicotine dependence, cigarettes, uncomplicated; T45.516A Underdosing of anticoagulants, initial encounter; Z91.128 Patient's intentional underdosing of medication regimen for other reason; Z79.01 Long term (current) use of anticoagulants; Z79.1 Long term (current) use of non-steroidal anti-inflammatories (NSAID); Z79.83 Long term (current) use of bisphosphonates; Z79.899 Other long term (current) drug therapy; Z85.038 Personal history of other malignant neoplasm of large intestine; Z90.49 Acquired absence of other specified parts of digestive tract; Z90.81 Acquired absence of spleen; Z93.3 Colostomy status; Z98.49 Cataract extraction status, unspecified eye
CPT/HCPCS: 36415; 70450; 71046; 71250; 72125; 72170; 80048; 80053; 80076; 82607; 82747; 83605; 83735; 84443; 85025; 85610; 85730; 93005; 99285

== ENCOUNTER → 2019-04-07 | Outpatient (CLI) | payer MEDICARE, OTHER ==
--- NOTE | 2019-04-17 07:36 | PE ---
EXAMINATION TYPE: PET CT fusion skull to thigh DATE OF EXAM: 04/07/2019 COMPARISON: No prior PET/CT at this institution. CT of the chest, abdomen, and pelvis dated [address] of the chest dated 03/27/2019 HISTORY: Colorectal carcinoma with surgical resection in 2018. Patient was treated with chemotherapy but denies radiation. Subsequent treatment strategy. TECHNIQUE: Following the intravenous administration of 10.1 mCi of F-18 FDG, whole body images are p erformed from the skull base to the midthigh. Images are reviewed on the computer in the coronal, ax ial, and sagittal planes. Reconstructed rotating images are created on independent workstation and r eviewed on the computer. A localization and attenuation correction CT is performed in conjunction w ith the PET scan. SCAN: Initial PET/CT at this institution. FINDINGS: Mediastinal background: 2.2 Abdominal background: 1.45 SKULL BASE AND NECK: No suspicious hypermetabolic uptake. CHEST, MEDIASTINUM, AND HILAR REGION: Groundglass nodules in the right upper lobe marked on image 65 in a hypermetabolic with a maximum SUV measuring up to 2.08. There is an unchanged 7 mm pulmonary nod ule in the right lower lobe on image 105 of series 3. This is hypermetabolic with a maximum SUV of 1. 8. There is a subsolid nodule in the superior segment of the right lower lobe on image 88 measuring 9 mm with maximum SUV of 1.7. There is a consolidation along the mediastinal border anteriorly in the left upper lobe on image 86 is centrally slightly hypoattenuated and could represent a loculated pleu ral effusion however there is suspicion for underlying nodule as this demonstrates a maximum SUV of 4 .2. In total of consolidation measures 2.9 x 1.5 cm. There is also concentric obscured nodule or mass in the left lower lobe by atelectasis as there is a maximum SUV of the consolidation measuring 3.33. ABDOMEN AND PELVIS: There is focal hypermetabolic uptake adjacent to the inferior vena cava and cauda te lobe of the liver. This may be artifactual as no discrete hepatic mass is seen. However there is u ptake/excretion in the left hemicolon with a maximum SUV of 4.78. Left gluteal uptake of 2.91 is like ly due to muscular contraction. OSSEOUS STRUCTURES: No suspicious hypermetabolic uptake. OTHER CT: There are increasing moderate pleural effusions bilaterally, slightly loculated on the left with multifocal subsegmental atelectasis and redemonstration of multifocal groundglass opacities. Th e groundglass opacities in the lower lobes are obscured by the pleural effusions. These are nonspecif ic but could relate to early metastasis, pneumonitis or focal fluid overload as there is background m oderate interstitial edema. One of these groundglass opacities as seen on image 65a in the right uppe r lobe and another in the right upper lobe anteriorly on image 80. Benign granulomatous change of the mediastinum is seen with numerous calcified lymph nodes. Advanced atherosclerosis of the thoracic aorta is seen. No discrete adenopathy. Mild coronary calcifications. Diffuse osseous demineralization. Left femoral sclerotic lesion likely represents a bone island. Hype rattenuation of the hepatic parenchyma is seen. Hemochromatosis could be considered. High density in the gallbladder is also seen, likely biliary sludge. Hyperdense 4 mm right renal lesion in the upper pole is too small to accurately characterize. Left mid abdominal ostomy is seen. Diffuse anasarca. IMPRESSION: 1. Metastatic pulmonary nodules with the largest in the lingula against the mediastinal border measur ing up to 2.9 cm. There are at least 6 pulmonary nodules bilaterally. No hypermetabolic mediastinal a denopathy. 2. Possible hepatic lesion adjacent to the hepatic veins as there is focal hypermetabolic uptake with out discrete lesion seen. MRI liver could further assess this finding. There is background hyperdensi ty of the liver that may represent hemachromatosis or amiodarone deposition. Correlate with prior ami odarone use and iron levels. 3. Uptake of the left hemicolon is slightly above the expected level may simply relate to excretion w ith no obstruction or discrete mass seen.
== END | disposition home or self-care (01) ==
LOC: RADPETMAIN 15:38
PROVIDERS: ATTEND Internal Medicine Hematology & Oncology
DX: C78.00 Secondary malignant neoplasm of unspecified lung (principal); C18.6 Malignant neoplasm of descending colon
CPT/HCPCS: 78815; A9552

== ENCOUNTER 2019-05-04 13:39 | Emergency (ER) | payer MEDICARE, OTHER ==
[2019-05-04 13:51] VITALS: RESP 20; TEMP 98.6
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
[2019-05-04 15:00] LABS: Anisocytosis Slight; Basophils # (A) 0.1 k/uL (0-0.2); Basophils % (A) 1 %; Eosinophils % (A) 1 %; HCT 31.5 % (34.0-46.0); HGB 10.4 gm/dL (11.4-16.0); Lymphocytes # (A) 1.3 k/uL (1.0-4.8); Lymphocytes % (A) 15 %; MCH 31.4 pg (25.0-35.0); Mean Platelet Volume 11.2; Monocytes # (A) 0.6 k/uL (0-1.0); Monocytes % (A) 7 %; Neutrophils # (A) 6.4 k/uL (1.3-7.7); Neutrophils % (A) 75 %; Platelet Count 511 k/uL (150-450); WBC 8.6 k/uL (3.8-10.6)
[2019-05-04 15:06] LABS: Ammonia <9 umol/L (<30); Lactic Acid, Venous 1.3 mmol/L (0.7-2.0)
[2019-05-04 15:19] LABS: Prothrombin Time 10.3 sec (9.0-12.0)
[2019-05-04 15:29] LABS: ALT 27 U/L (4-34); AST 45 U/L (14-36); African American GFR (CKD) >90 (>60 ml/min/1.73 sqM); Albumin 2.7 g/dL (3.5-5.0); Alcohol <10 mg/dL; Alkaline Phosphatase 101 U/L (38-126); Anion Gap 6 mmol/L; Blood Urea Nitrogen 8 mg/dL (7-17); Calcium 8.6 mg/dL (8.4-10.2); Carbon Dioxide 36 mmol/L (22-30); Chloride 87 mmol/L (98-107); Glucose 101 mg/dL (74-99); Magnesium 1.8 mg/dL (1.6-2.3); Non-African American GFR(CKD) >90 (>60 ml/min/1.73 sqM); Potassium 3.1 mmol/L (3.5-5.1); Sodium 129 mmol/L (137-145); Total Protein 5.7 g/dL (6.3-8.2)
--- NOTE | 2019-05-04 15:42 | XR ---
EXAMINATION TYPE: XR chest 2V DATE OF EXAM: 05/04/2019 COMPARISON: 03/24/2019 HISTORY: Total body pain including chest pain TECHNIQUE: Frontal and lateral views of the chest are obtained. FINDINGS: There is no focal air space opacity, pleural effusion, or pneumothorax seen. Granulomatous changes are seen of the van. The cardiac silhouette size is within mildly enlarged. There is diffus e osseous demineralization seen mild multilevel degenerative change of the spine.. IMPRESSION: No acute cardiopulmonary process.
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
[2019-05-04 15:55] LABS: MCV 95.3 fL (80.0-100.0)
[2019-05-04 16:04] LABS: Large Platelets Present; Poikilocytosis (M) Present
[2019-05-04] MEDS ORDERED: POTASSIUM CHLORIDE ER 20 MEQ TAB.ER PO STA (16:34)
[2019-05-04] MEDS ORDERED: SODIUM CHLORIDE TAB 1 GM TAB PO STA (16:35)
[2019-05-04] MEDS ORDERED: SODIUM CHLORIDE 0.9% 1,000 ML IV STA (16:39)
[2019-05-04] MEDS ORDERED: oxyCODONE-APAP 5-325MG 1 EACH TAB PO PRN (16:41)
[2019-05-04] MEDS ORDERED: NALOXONE 0.4 MG/ML 1 ML VIAL IV PRN (16:41)
[2019-05-04] MEDS ORDERED: NON FORMULARY DRUG (Alendronate Sodium [Fosamax] 70 MG) PO SCH (16:45)
[2019-05-04] MEDS ORDERED: CAPECITABINE 500 MG PO SCH ×2 (16:45→18:05)
[2019-05-04] MEDS ORDERED: CAPECITABINE 150 MG PO SCH ×2 (16:45→18:05)
[2019-05-04 17:57] VITALS: BP 95/58; PULSE 75
[2019-05-04] MEDS ORDERED: FAMOTIDINE 20 MG TAB PO SCH (21:00)
[2019-05-04] MEDS ORDERED: TEMAZEPAM 7.5 MG CAP PO SCH (21:00)
[2019-05-05] MEDS ORDERED: POTASSIUM CHLORIDE ER 10 MEQ TAB.ER.PRT PO SCH (09:00)
== END 2019-05-04 18:14 | disposition other institution (70) ==
LOC: EC 13:39 → 5NMEDONC 16:41 → UNDOADMIN 16:41 → 5NMEDONC 17:38
DX: T74.11XA Adult physical abuse, confirmed, initial encounter (principal); I10 Essential (primary) hypertension; G31.84 Mild cognitive impairment of uncertain or unknown etiology; Z51.5 Encounter for palliative care; F17.200 Nicotine dependence, unspecified, uncomplicated; Z79.899 Other long term (current) drug therapy; Z92.21 Personal history of antineoplastic chemotherapy; Z85.038 Personal history of other malignant neoplasm of large intestine; Z90.49 Acquired absence of other specified parts of digestive tract; Z93.3 Colostomy status; Z90.81 Acquired absence of spleen; Y07.499 Other family member, perpetrator of maltreatment and neglect
CPT/HCPCS: 99285; 96360; 36415; 93005; 86900; 86901; 80053; 82140; 83605; 83735; 85025; 85610; 85730; 86850; 72170; 71046; 72125; 70450; G0480; 80320